=== PATIENT | female | born 1950 | race Caucasian/White ===

== ENCOUNTER 2019-07-23 21:43 | Outpatient (CLI) | payer MEDICARE, MEDICAID | END 2019-07-23 21:44 | disposition critical access hospital (66) | LOC: EMS 21:43 | PROVIDERS: ATTEND Surgery | DX: R53.1 Weakness (principal); R46.4 Slowness and poor responsiveness; R50.9 Fever, unspecified | CPT/HCPCS: A0425; A0429 ==

== ENCOUNTER 2019-07-23 22:03 | Emergency (ER) | payer MEDICARE, MEDICAID ==
[2019-07-23] MEDS ORDERED: ACETAMINOPHEN 325 MG TABLET PO STA (23:31)
--- NOTE | 2019-07-23 23:32 | ED Physician Documentation ---
History of Present Illness - Stated complaint Stated Complaint: FEVER,CHILLS,WEAKNESS - Chief complaint Chief Complaint: Fever - History obtained from History obtained from: Patient, Family (daughter (in ED at bedside)) - History of Present Illness Timing: Today Pain level now: 0 Improved by: no apparent ameliorating factors Worsened by: no apparent exacerbating factors - Additonal information Additional information: patient and daughter both contribute to HPI/ROS. "cold, shaking", daughter says "hasn't been coherent all the time" today. Was at PMD's office earlier today to review recent blood tests (they have results with them; appears to be a rheumotology-oriented w/u with some positive and some negative results; they say this had to do with some foot pain she had recently been experiencing). Daughter also says patient fell while waiting for the bus earlier today but did not hid head nor lose consciousness. Patient is febrile in triage. Review of Systems Constitutional: reports: Fever, Chills, Sweats Cardiac: reports: Reviewed and negative Respiratory: reports: Reviewed and negative GI: reports: Reviewed and negative : denies: Dysuria, Frequency Skin: reports: Reviewed and negative Musculoskeletal: reports: Reviewed and negative Neurologic: reports: Confused. denies: Generalized weakness, Focal weakness, Numbness PD PAST MEDICAL HISTORY - Past Medical History Past Medical History: Yes Cardiovascular: High cholesterol - Past Surgical History Ortho: Knee replacement - Allergies Allergies/Adverse Reactions: Allergies Allergy/AdvReac Type Severity Reaction Status Date / Time Sulfa (Sulfonamide Allergy Unknown Verified 07/24/19 14:07 Antibiotics) - Social History Does the pt smoke?: No Smoking Status: Never smoker Does the pt drink ETOH?: No Does the pt have substance abuse?: No - POLST Patient has POLST: No PD ED PE NORMAL - Vitals Vital signs reviewed: Yes - General General: No acute distress, Well developed/nourished, Other (awake, alert, oriented x 3 but slow to answer some questions and seems unsure at times) - HEENT HEENT: Atraumatic, PERRL, EOMI, Moist mucous membranes - Neck Neck: Supple, no meningeal sign, No bony TTP - Cardiac Cardiac: RRR, No murmur - Respiratory Respiratory: No respiratory distress, Clear bilaterally - Abdomen Abdomen: Soft, Non tender - Derm Derm: Normal color, Warm and dry - Extremities Extremities: No edema - Neuro Neuro: Alert and oriented X 3, service superintendent 2-12 intact, No motor deficit, No sensory deficit, Normal speech Eye Opening: Spontaneous Motor: Obeys Commands Verbal: Confused GCS Score: 14 Results - Vitals Vitals: Vital Signs - 24 hr 07/23/19 07/23/19 07/24/19 22:18 23:33 00:39 Temperature 38.4 C H 39.0 C H Heart Rate 82 83 91 Respiratory 18 14 14 Rate Blood Pressure 104/58 L 104/93 H 104/89 H O2 Saturation 99 95 97 07/24/19 07/24/19 02:10 04:04 Temperature 37.9 C H 36.9 C Heart Rate 80 81 Respiratory 16 17 Rate Blood Pressure 104/57 L 124/77 O2 Saturation 97 98 Oxygen O2 Source Room air - Labs Labs: Microbiology 07/24/19 01:20 Blood Culture - Preliminary Blood 07/24/19 01:25 Blood Culture - Preliminary Blood Laboratory Tests 07/23/19 07/23/19 07/23/19 23:30 23:55 23:55 WBC 20.4 H RBC 3.96 L Hgb 9.7 L Hct 30.9 L MCV 78.0 L MCH 24.5 L MCHC 31.4 L RDW 16.2 H Plt Count 458 H MPV 9.2 Neut # (Auto) 16.5 H Lymph # (Auto) 2.4 [place] # (Auto) 1.2 H Eos # (Auto) 0.0 Baso # (Auto) 0.1 Absolute Nucleated RBC 0.00 Nucleated RBC % 0.0 Manual Slide Review Indicated Platelet Estimate INCREASED (>450,000) Platelet Morphology NORMAL APPEARANCE RBC Morph Micro Appear NORMAL APPEARANCE Sodium 132 L Potassium 4.2 Chloride 101 Carbon Dioxide 18 L Anion Gap 13.0 BUN 25 H Creatinine 1.6 H Estimated GFR (MDRD) 32 L Glucose 157 H Lactic Acid Calcium 8.9 Total Bilirubin 0.4 AST 20 ALT 10 Alkaline Phosphatase 56 Total Protein 8.2 Albumin 3.7 Globulin 4.5 H Albumin/Globulin Ratio 0.8 L Lipase 50 Urine Color Urine Clarity Urine pH Ur Specific [place] Urine Protein Urine Glucose (UA) Urine Ketones Urine Occult Blood Urine Nitrite Urine Bilirubin Urine Urobilinogen Ur Leukocyte Esterase Ur Microscopic Review Urine Culture Comments Influenza A (Rapid) Negative Influenza B (Rapid) Negative 07/24/19 07/24/19 00:34 01:20 WBC RBC Hgb Hct MCV MCH MCHC RDW Plt Count MPV Neut # (Auto) Lymph # (Auto) [place] # (Auto) Eos # (Auto) Baso # (Auto) Absolute Nucleated RBC Nucleated RBC % Manual Slide Review Platelet Estimate Platelet Morphology RBC Morph Micro Appear Sodium Potassium Chloride Carbon Dioxide Anion Gap BUN Creatinine Estimated GFR (MDRD) Glucose Lactic Acid 1.0 Calcium Total Bilirubin AST ALT Alkaline Phosphatase Total Protein Albumin Globulin Albumin/Globulin Ratio Lipase Urine Color YELLOW Urine Clarity CLEAR Urine pH 6.0 Ur Specific [place] 1.015 Urine Protein NEGATIVE Urine Glucose (UA) NEGATIVE Urine Ketones NEGATIVE Urine Occult Blood NEGATIVE Urine Nitrite NEGATIVE Urine Bilirubin NEGATIVE Urine Urobilinogen 0.2 (NORMAL) Ur Leukocyte Esterase NEGATIVE Ur Microscopic Review NOT INDICATED Urine Culture Comments NOT INDICATED Influenza A (Rapid) Influenza B (Rapid) - Rads (name of study) chest xray Radiology: Prelim report reviewed, See rad report PD MEDICAL DECISION MAKING - ED course Complexity details: reviewed old records, reviewed results, re-evaluated patient, considered differential, d/w patient, d/w family ED course: given tylenol but fever then increased. W/U included cxr, blood tests, UA, and flu swab. No contributory findings on any of these tests except notable leukocytosis. She was given ibuprofen and this significantly reduced her fever and this correlated with return to baseline mental status. On reevaluation, she is AAOx3, interacts appropriately and exhibits no confusion. No source for fever found. Reexamination of abdomen reveals it continues to be nontender Departure - Departure Disposition: 01 Home, Self Care Clinical Impression: Fever Qualifiers: Fever type: unspecified Qualified Code(s): R50.9 - Fever, unspecified Condition: Good Instructions: ED Fever Unconf Cause Discharge Date/Time: 07/24/19 04:05
[2019-07-24 00:08] LABS: BASOPHILS # (AUTO) 0.1 10^3/uL (0.0-0.1); BASOPHILS % (AUTO) 0.4 %; EOSINOPHILS % (AUTO) 0.1 %; HGB - HEMOGLOBIN 9.7 g/dL (12.0-16.0); LYMPHOCYTES # (AUTO) 2.4 10^3/uL (1.5-3.5); LYMPHOCYTES % (AUTO) 11.5 %; MEAN CORPUSCULAR HEMOGLOBIN 24.5 pg (27.0-31.0); MEAN CORPUSCULAR HGB CONC 31.4 g/dL (32.0-36.0); MEAN PLATELET VOLUME 9.2 fL (7.9-10.8); MONOCYTES # (AUTO) 1.2 10^3/uL (0.0-1.0); MONOCYTES % (AUTO) 6.1 %; NEUTROPHILS # (AUTO) 16.5 10^3/uL (1.5-6.6); PLT - PLATELET COUNT 458 10^3/uL (130-450); RED BLOOD COUNT 3.96 10^6/uL (4.20-5.40); RED CELL DISTRIBUTION WIDTH 16.2 % (12.0-15.0); WHITE BLOOD COUNT 20.4 x10^3/uL (4.8-10.8)
[2019-07-24 00:20] LABS: ALBUMIN 3.7 g/dL (3.2-5.5); ALBUMIN/GLOBULIN RATIO 0.8 (1.0-2.2); BILIRUBIN,TOTAL 0.4 mg/dL (0.2-1.0); CALCIUM 8.9 mg/dL (8.5-10.3); CREATININE 1.6 mg/dL (0.4-1.0); TOTAL PROTEIN 8.2 g/dL (6.7-8.2)
[2019-07-24 00:31] LABS: PLATELET MORPHOLOGY NORMAL APPEARANCE (NORMAL); RBC MORPHOLOGY (MULTIPLE) NORMAL APPEARANCE (NORMAL)
[2019-07-24 00:32] LABS: PLATELET ESTIMATE, MANUAL INCREASED (>450,000) (NORMAL)
--- NOTE | 2019-07-24 00:37 | XRAY Report ---
Reason: fever, AMS Procedure Date: 07/24/2019 Accession Number: [id number] / [id number] Procedure: XR - Chest 2 View X-Ray CPT Code: 99844 Final Report FULL RESULT: EXAM: CHEST RADIOGRAPHY EXAM DATE: 07/24/2019 12:25 AM. CLINICAL HISTORY: Fever, AMS. COMPARISON: None. TECHNIQUE: 2 views. FINDINGS: Lungs/Pleura: No dense consolidation. No large effusion or pneumothorax. No pulmonary edema. Mediastinum: Heart and mediastinal contours are unremarkable. Other: None. IMPRESSION: No acute radiographic pulmonary abnormalities. RADIA
[2019-07-24 00:46] LABS: BILIRUBIN,URINE NEGATIVE (NEGATIVE); CLARITY,URINE CLEAR (CLEAR); GLUCOSE, URINE (UA) NEGATIVE (NEGATIVE); KETONES,URINE (UA) NEGATIVE (NEGATIVE); LEUKOCYTE ESTERASE, URINE NEGATIVE (NEGATIVE); NITRITE,URINE NEGATIVE (NEGATIVE); OCCULT BLOOD,URINE NEGATIVE (NEGATIVE); PROTEIN,URINE NEGATIVE (NEGATIVE); UROBILINOGEN,URINE 0.2 (NORMAL) E.U./dL (NORMAL)
[2019-07-24] MEDS ORDERED: IBUPROFEN 600 MG TABLET PO STA (01:09)
[2019-07-24 04:05] VITALS: BP 124/77
== END 2019-07-24 04:05 | disposition home or self-care (01) ==
LOC: EDUNIT# → ED 22:03
DX: R50.9 Fever, unspecified (principal)
CPT/HCPCS: 36415; 71046; 80053; 81001; 81003; 81599; 83605; 83690; 85025; 87040; 87086; 87275; 87276; 99284

== ENCOUNTER 2019-07-24 13:45 | Inpatient (IN) | payer MEDICARE, MEDICAID ==
[2019-07-24] MEDS ORDERED: CEFEPIME 2 GM in SODIUM CHLORIDE 0.9% MINIBAG 100 ML IV STA (14:27)
[2019-07-24] MEDS ORDERED: metroNIDAZOLE 500 MG/100 ML 500 MG/100 ML BAG IV ONE (14:32)
--- NOTE | 2019-07-24 14:34 | ED Physician Documentation ---
History of Present Illness - Stated complaint Stated Complaint: AB LAB - Chief complaint Chief Complaint: Fever - History obtained from History obtained from: Patient, Family - History of Present Illness Timing: Last night (This is a very pleasant relatively healthy 69-year-old woman who became acutely ill yesterday with confusion and fevers. She was seen here noted to have a white blood cell count of 20, clear chest x-ray and urine. Because she was much better after IV fluids and sent home. She is much more coherent today and feeling better. Her only specific complaint is some mild right-sided abdominal pain. She also vomited once this morning but is not currently nauseous. She was called back to the emergency department because she has 2 out of 2 blood cultures positive for gram-negative bacilli.) Review of Systems Ten Systems: 10 systems reviewed and negative Constitutional: reports: Fever, Chills Cardiac: denies: Chest pain / pressure, Palpitations Respiratory: denies: Dyspnea, Cough GI: reports: Abdominal Pain, Vomiting. denies: Nausea, Diarrhea PD PAST MEDICAL HISTORY - Past Medical History Cardiovascular: High cholesterol - Past Surgical History Ortho: Knee replacement - Allergies Allergies/Adverse Reactions: Allergies Allergy/AdvReac Type Severity Reaction Status Date / Time Sulfa (Sulfonamide Allergy Unknown Verified 07/24/19 14:07 Antibiotics) - Social History Does the pt smoke?: No Smoking Status: Never smoker Does the pt drink ETOH?: No Does the pt have substance abuse?: No - Family History Family history: reports: Non contributory - POLST Patient has POLST: No PD ED PE NORMAL - Vitals Vital signs reviewed: Yes - General General: Alert and oriented X 3, No acute distress - HEENT HEENT: PERRL, EOMI - Neck Neck: Supple, no meningeal sign, No bony TTP - Cardiac Cardiac: RRR, No murmur - Respiratory Respiratory: No respiratory distress, Clear bilaterally - Abdomen Abdomen: Normal bowel sounds, Other (Minimal right upper quadrant tenderness without surgical signs) - Back Back: No CVA TTP, No spinal TTP - Derm Derm: Normal color, Warm and dry - Extremities Extremities: No edema, No calf tenderness / cord - Neuro Neuro: Alert and oriented X 3, Normal speech Results - Vitals Vitals: Vital Signs - 24 hr 07/24/19 07/24/19 07/24/19 14:01 14:06 14:42 Temperature 37.5 C 37.5 C Heart Rate 89 82 88 Respiratory 18 19 Rate Blood Pressure 108/49 L 113/80 110/55 L O2 Saturation 97 97 98 Oxygen O2 Source Room air - Labs Labs: Laboratory Tests 07/24/19 07/24/19 07/24/19 14:45 14:47 15:16 WBC 30.2 H RBC 3.65 L Hgb 9.2 L Hct 28.9 L MCV 79.2 L MCH 25.2 L MCHC 31.8 L RDW 16.2 H Plt Count 446 MPV 9.7 Neut # (Auto) Not Reportable Lymph # (Auto) Not Reportable [place] # (Auto) Not Reportable Eos # (Auto) Not Reportable Baso # (Auto) Not Reportable Absolute Nucleated RBC Not Reportable Total Counted 100 Band Neuts % (Manual) 20 H Abnorm Lymph % (Manual) 0 Nucleated RBC % Not Reportable Neutrophils # (Manual) 27.8 H Lymphocytes # (Manual) 0.9 L Monocytes # (Manual) 1.5 H Eosinophils # (Manual) 0.0 Basophils # (Manual) 0.0 Differential Comment MANUAL DIFFERENTIAL Manual Slide Review Indicated WBC Morphology NORMAL APPEARANCE Platelet Estimate NORMAL (130-450,000) Platelet Morphology NORMAL APPEARANCE RBC Morph Micro Appear 1+ MICROCYTOSIS Sodium 134 L Potassium 3.8 Chloride 101 Carbon Dioxide 20 L Anion Gap 13.0 BUN 28 H Creatinine 1.6 H Estimated GFR (MDRD) 32 L Glucose 198 H Lactic Acid 2.2 Calcium 8.7 Total Bilirubin 1.0 AST 16 ALT 10 Alkaline Phosphatase 49 Total Protein 7.5 Albumin 3.4 Globulin 4.1 Albumin/Globulin Ratio 0.8 L - Rads (name of study) CT A/P Radiology: EMP read contemporaneously (Inflamed appearing transverse colon consistent with either diverticulitis or neoplasm) PD MEDICAL DECISION MAKING - ED course ED course: 69-year-old woman returns as requested for positive blood cultures, 2 out of 2 for gram-negative bacilli. The only complaints that might be a focus was her abdominal pain and a CT did show the source is either being diverticulosis/-itis near the hepatic flexure versus a necrotic neoplasm. She is never had a colonoscopy. She was administered cefepime and Flagyl after blood cultures were repeated. Case discussed by phone with the on-call surgeon, Dr. Doyle who will consult and Dr. Rick for admission at 5:05 PM. Departure - Departure Disposition: 66 [facility] DC/Xfer Clinical Impression: Colonic mass, Gram negative sepsis Condition: Serious
[2019-07-24 15:06] LABS: BASOPHILS % (AUTO) 0.5 %; EOSINOPHILS % (AUTO) 0.3 %; HGB - HEMOGLOBIN 9.2 g/dL (12.0-16.0); LYMPHOCYTES % (AUTO) 3.1 %; MEAN CORPUSCULAR HEMOGLOBIN 25.2 pg (27.0-31.0); MEAN CORPUSCULAR HGB CONC 31.8 g/dL (32.0-36.0); MEAN CORPUSCULAR VOLUME 79.2 fL (81.0-99.0); MEAN PLATELET VOLUME 9.7 fL (7.9-10.8); MONOCYTES % (AUTO) 4.7 %; NEUTROPHILS % (AUTO) 89.7 %; PLT - PLATELET COUNT 446 10^3/uL (130-450); RED BLOOD COUNT 3.65 10^6/uL (4.20-5.40); RED CELL DISTRIBUTION WIDTH 16.2 % (12.0-15.0); WHITE BLOOD COUNT 30.2 x10^3/uL (4.8-10.8)
[2019-07-24 15:11] LABS: ABNORMAL LYMPHS % (MANUAL) 0 %
[2019-07-24 15:38] LABS: BAND NEUTROPHILS % (MANUAL) 20 %; LYMPHOCYTES # (MANUAL) 0.9 10^3/uL (1.5-3.5); LYMPHOCYTES % (MANUAL) 3 %; MONOCYTES # (MANUAL) 1.5 10^3/uL (0.0-1.0)
[2019-07-24 15:39] LABS: DIFFERENTIAL COMMENT MANUAL DIFFERENTIAL; PLATELET ESTIMATE, MANUAL NORMAL (130-450,000) (NORMAL); PLATELET MORPHOLOGY NORMAL APPEARANCE (NORMAL)
[2019-07-24 15:46] LABS: ALBUMIN 3.4 g/dL (3.2-5.5); ALBUMIN/GLOBULIN RATIO 0.8 (1.0-2.2); CALCIUM 8.7 mg/dL (8.5-10.3); CREATININE 1.6 mg/dL (0.4-1.0); TOTAL PROTEIN 7.5 g/dL (6.7-8.2)
[2019-07-24] MEDS ORDERED: IOVERSOL 320 100 ML VIAL IVP ONE ×2 (15:59→16:36)
--- NOTE | 2019-07-24 16:53 | CT Report ---
Reason: RUQ pain, sepsis Procedure Date: 07/24/2019 Accession Number: [id number] / [id number] Procedure: CT - Abdomen/Pelvis W CPT Code: Final Report FULL RESULT: EXAM: CT ABDOMEN AND PELVIS EXAM DATE: 07/24/2019 04:32 PM. CLINICAL HISTORY: RUQ pain. Sepsis. COMPARISONS: None. TECHNIQUE: Routine helical CT imaging was performed through the abdomen and pelvis. IV contrast: 80 cc of OPTIRAY 320. Enteric contrast: No. Reconstructions: Coronal and sagittal. In accordance with CT protocol optimization, one or more of the following dose reduction techniques were utilized for this exam: automated exposure control, adjustment of mA and/or KV based on patient size, or use of iterative reconstructive technique. FINDINGS: Lung Bases: Small hiatal hernia. Liver: Normal. No masses. Gallbladder/Bile Ducts: Unremarkable. Spleen: Normal. Pancreas: Normal. Adrenal Glands: Normal. Kidneys: Normal. No masses or hydronephrosis. Peritoneal Cavity/Bowel: Diverticulosis. There is irregular colonic wall thickening at the hepatic flexure with dilatation and exophytic outpouching with air bubbles, with adjacent fat stranding. No free fluid, free air or adenopathy. The appendix is well visualized and normal. Pelvic Organs: Normal. The bladder and visualized pelvic organs are within normal limits. Vasculature: No aneurysms or other significant abnormality. Bones: No significant abnormality. Other: None. IMPRESSION: Abnormal hepatic flexure of the colon concerning for either necrotic neoplasm or giant diverticulum with diverticulitis. RADIA
[2019-07-24] MEDS ORDERED: ACETAMINOPHEN 325 MG TABLET PO PRN (17:26)
[2019-07-24] MEDS ORDERED: ONDANSETRON 4 MG/2 ML VIAL IVP PRN (17:26)
--- NOTE | 2019-07-24 18:20 | CONSULTATION NOTE ---
Referring Provider Name of Referring Provider:: Dr. Branham ED Consult Date: 07/24/19 Chief Complaint - Chief Complaint Chief Complaint: called back to ED for positive blood cultures History of Present Illness - Admitted From Admitted From:: ED - History Obtained From History obtained from: patient, daughter, and chart Exam Limitations: pt's memory is somewhat limited - History of Present Illness HPI Comment/Other: 69yo F brought to ED last night by daughter for concerning neurological findings of confusion and poor gross motor skills. She was given ibuprofen for a temperature and improved during her stay to essentially normal. No abnormal findings in labs so pt discharged. Called back today for blood cultures growing gram negative bacilli. She now has a leukocytosis of 30 with 20% bands. She feels much better, however. CT concerning for a large inflammatory mass in her hepatic flexure, concerning for necrotic cancer versus giant diverticulum. No mets or enlarged lymph nodes apparent. No perforation but significant surrounding inflammation. Her proximal colon is full of stool and her distal colon collapsed; she has extensive diverticulosis throughout her colon. On review, she started to feel off a month or so ago, noticing she was more fatigued and would get dizzy standing up. She has had a few episodes of abnormal nausea and vomiting but this has been intermittent. In general, she feels she is eating like normal and moving her bowels like normal, which is once every other day or so and with formed consistency. No blood, no thinner stools. She has no abdominal pain or distension. She does not see a PCP and has always refused colonoscopy because her ex during his. She has also refused stool tests for screening because it seems gross; she states she knows she has the right to dictate her healthcare. She still adamantly refuses endoscopy. No family history of colon cancers but several other kinds of cancer are present so she hopes she does not also have cancer. No anesthesia or bleeding issues in pt or family as far as she knows. She generally does not get SOB walking up stairs unless there are 'too many' but she is unable to quantify this. Her daughter notes that she only sees her fatigue quickly when she feels ill. 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 denies: Fever, Chills - Ears, Nose & Throat Ears, Nose & Throat: reports: Vertigo - Cardiovascular Cariovascular: reports: Lightheadedness, Exertional dyspnea (intermittently) - Gastrointestinal Gastrointestinal: reports: Nausea, Vomiting. denies: Abdominal pain, Abdominal distention, Constipation, Diarrhea, Change in bowel habits, Rectal bleeding, Black stools, Bloody stools, Coffee grounds emesis, Bloating, Poor appetite - Genitourinary Genitourinary: reports: Other (occasional UTIs) - Hematologic/Lymphatic Hematologic/Lymphatic: denies: Bruising, Blood clots, Bleeding tendencies - All Other Systems All Other Systems: reports: Reviewed and negative Exam - Vital Signs Reviewed Vital Signs: Yes Vital Signs: Vital Signs x48h Temp Pulse Resp BP Pulse Ox 07/24/19 17:00 84 14 108/70 97 07/24/19 14:42 37.5 C 88 19 110/55 L 98 07/24/19 14:06 82 113/80 97 07/24/19 14:01 37.5 C 89 18 108/49 L 97 - Physical Exam Comments/Other: AAO, NAD, occasional memory issues female of healthy weight EOMI, MMM, no scleral icterus unlabored RA soft, nt/nd, no palpable organomegaly MAEW visible skin dry and intact Conclusion and Plan - Lab Results Laboratory Results 07/24/19 15:16: Sodium 134 L, Potassium 3.8, Chloride 101, Carbon Dioxide 20 L, Anion Gap 13.0, BUN 28 H, Creatinine 1.6 H, Estimated GFR (MDRD) 32 L, Glucose 198 H, Calcium 8.7, Total Bilirubin 1.0, AST 16, ALT 10, Alkaline Phosphatase 49, Total Protein 7.5, Albumin 3.4, Globulin 4.1, Albumin/Globulin Ratio 0.8 L 07/24/19 14:47: Lactic Acid 2.2 07/24/19 14:45: WBC 30.2 H, RBC 3.65 L, Hgb 9.2 L, Hct 28.9 L, MCV 79.2 L, MCH 25.2 L, MCHC 31.8 L, RDW 16.2 H, Plt Count 446, MPV 9.7, Neut # (Auto) Not Reportable, Lymph # (Auto) Not Reportable, [place] # (Auto) Not Reportable, Eos # (Auto) Not Reportable, Baso # (Auto) Not Reportable, Absolute Nucleated RBC Not Reportable, Total Counted 100, Band Neuts % (Manual) 20 H, Abnorm Lymph % (Manual) 0, Nucleated RBC % Not Reportable, Neutrophils # (Manual) 27.8 H, Lymphocytes # (Manual) 0.9 L, Monocytes # (Manual) 1.5 H, Eosinophils # (Manual) 0.0, Basophils # (Manual) 0.0, Differential Comment MANUAL DIFFERENTIAL, Manual Slide Review Indicated, WBC Morphology NORMAL APPEARANCE, Platelet Estimate NORMAL (130-450,000), Platelet Morphology NORMAL APPEARANCE, RBC Morph Micro Appear 1+ MICROCYTOSIS - Diagnostic Imaging Results Diagnostic Imaging Results: positive: Final report reviewed, Read contemporaneously - Diagnosis Diagnosis: 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 - Plan Plan: - mass concerning for malignancy versus giant diverticulum --> more likely cancer, happily no obvious mets or enlarged LNs --> pt refuses endoscopy for evaluation and biopsy --> CEA sent - cont' IV abx, has significant surrounding inflammation and while she has bacteremia from this she is stable and comfortable so will let inflammation improve while undergoing more workup - discussed that pt would most likely need a partial colectomy this admission and she is amenable to whatever needs to be done other than endoscopy --> explained if she worsened this may have to be emergent but given her current clinical picture we have time to continue workup and optimize patient - ice chips and sips for now, evidence of obstruction from process on imaging although less clinically; also want bowel rest to let inflammation calm and to h elp empty colon since prep now is high risk - ZANDRA: not sure of true baseline; her left kidney appears to be atrophic and have an associated mass --> IVFs, monitor - SCDs, chemoprophylaxis as long as Hg remains stable and we will hold before surgery
[2019-07-24 18:29] LABS: INR 1.5 (0.8-1.2); PT - PROTHROMBIN TIME 16.3 secs (9.9-12.6)
--- NOTE | 2019-07-24 18:51 | HISTORY & PHYSICAL EXAMINATION ---
DATE OF SERVICE: 07/24/2019 Physician: Tamia Rick MD PRIMARY CARE PHYSICIAN: None HISTORY OF PRESENT ILLNESS: This is a 69-year-old white female with a history of hyperlipidemia, and prior history of HTN and Diabetes but she no longer needs medications to treat those, according to her, and otherwise has a negative PMH. Yesterday, she developed confusion and chills and came to the emergency room. She was found to have a fever of 101 F and an elevated white blood count of 20, but had a normal urinalysis and chest x-ray and was sent home with orders for symptomatic treatment of the fever as the etiology was unclear. Blood cultures had been taken. Today, she was called to come back to the hospital emergency room because 2 of 2 blood culture bottles had turned positive for gram-negative bacilli. Patient received IV fluids in the ER today and her confusion had improved since yesterday, since she reports she took Tylenol alternating with Motrin for her fever, and she is feeling better today. Her only complaint is that of right-sided abdominal pain which started today and she did have 1 episode of vomiting earlier today. Currently, she is not nauseated. The exam in the ER today did reveal mild right upper quadrant tenderness and a CT of the abdomen has been done. This shows a transverse colon mass versus diverticulitis. PAST MEDICAL HISTORY: Hyperlipidemia on Simvastatin, Depression on treatment, previous Hx of DM type II and HTN, no longer on treatment. MEDICATIONS: Simvastatin, antidepressant. ALLERGIES: SULFA. FAMILY HISTORY: There is cardiac and diabetic and cancer history in the family. SOCIAL HISTORY: Patient is a nonsmoker now who quit 35 years ago, drinks no alcohol but was abusing alcohol in the remote past, no illicit drug use history. She is a homemaker. She lives with her daughter and with her ex- (they have separate areas in the dwelling, she said). She moved to [facility] from [place] in October 2018, however, she used to live in [facility] in the past. Since moving here 8 months ago, she does not have a local PCP yet. REVIEW OF SYSTEMS: She denies melena or hematochezia, denies previous abdominal pain. There has been no recent diarrhea. She denies URI symptoms or recent travel out of the country. She has never had a colonoscopy. She denies weakness, syncope or shortness of breath. A comprehensive review of systems was performed and the pertinent positives are listed, the rest are negative. PHYSICAL EXAMINATION GENERAL: Elderly white female. She appears pale. She is not in acute distress. She has temporal wasting. VITAL SIGNS: Blood pressure 110/55, heart rate 80 in sinus rhythm, afebrile today, room air saturation 97%. HEENT: Unremarkable except for pallor. NECK: Shows no JVD in a vertical position. CHEST: Clear lung sounds. HEART: Normal heart sounds without murmur. ABDOMEN: Soft, mildly tender in the right upper quadrant. No guarding or rebound. No organomegaly. Normal bowel sounds. EXTREMITIES: No clubbing, cyanosis or edema. NEUROLOGIC: Grossly intact. LABORATORY DATA: Sodium 134, potassium 3.8, BUN 28, creatinine 1.6. Her creatinine was 1.6 on yesterday's ER labs as well. There are no older labs to compare. Lactic acid today 2.2. Normal liver function tests and no lipase was done. White blood count 30.2 with 20% bands. Hemoglobin 9.2 with an MCV of 79, RDW of 16.2 and platelet count of 446. No INR was done. Chest x-ray from yesterday showed no active pulmonary disease. IMAGING: Abdomen and pelvis CT from today shows abnormal hepatic flexure of the colon concerning for either necrotic neoplasm or giant diverticulum with diverticulitis. IMPRESSION/DIAGNOSES 1. Sepsis by virtue of very elevated white count with left shift, fever yesterday and signs of infection. 2. Gram-negative bacteremia. 3. Colonic mass, possibly cancer. 4. Diverticulitis. 5. Acute kidney injury. 6. Microcytic anemia. 7. Hyponatremia. PLAN: Admit patient to a Med/Surg bed. Diet will just be clear liquids for bowel rest. General surgery consult is requested; the ER doctor already spoke to the on-call surgeon. Begin treatment for the bacteremia with IV antibiotics and will use iv Cefepime and iv Flagyl. Reculture blood if she spikes a fever. Begin IV fluids, follow electrolytes and recheck her lactic acid level. Obtain B12, folate levels and iron stores and type and screen as she may require a blood transfusion if hemoglobin drops below 7. Follow CBC daily. If surgery is required, she will need an EKG for preop evaluation. DEEP VENOUS THROMBOSIS PROPHYLAXIS: SCDs. CODE STATUS: FULL CODE, confirmed with discussion with patient. ATTESTATION: Patient is expected to be discharged or transferred to another facility within 96 hours: Yes. TD: 07/24/2019 17:52 MTDNancy
[2019-07-24] MEDS: DEXTROSE 5%-0.9% NACL 1,000 ML IV SCH (19:19)
[2019-07-24] MEDS: SODIUM CHLORIDE FLUSH 0.9% 10 ML SYRINGE IVP SCH (21:42)
[2019-07-24] MEDS: FAMOTIDINE 20 MG/2 ML VIAL IVP SCH (21:42)
[2019-07-24] MEDS: CEFEPIME 2 GM in SODIUM CHLORIDE 0.9% MINIBAG 100 ML IV SCH (21:43)
[2019-07-24] MEDS: metroNIDAZOLE 500 MG/100 ML 500 MG/100 ML BAG IV SCH (22:17)
[2019-07-25 05:23] LABS: BASOPHILS % (AUTO) 0.5 %; EOSINOPHILS % (AUTO) 0.2 %; HGB - HEMOGLOBIN 7.8 g/dL (12.0-16.0); LYMPHOCYTES % (AUTO) 6.1 %; MEAN CORPUSCULAR HEMOGLOBIN 25.6 pg (27.0-31.0); MEAN CORPUSCULAR HGB CONC 32.4 g/dL (32.0-36.0); MEAN PLATELET VOLUME 9.3 fL (7.9-10.8); MONOCYTES % (AUTO) 4.3 %; NEUTROPHILS % (AUTO) 87.4 %; PLT - PLATELET COUNT 354 10^3/uL (130-450); RED BLOOD COUNT 3.05 10^6/uL (4.20-5.40); RED CELL DISTRIBUTION WIDTH 16.3 % (12.0-15.0); WHITE BLOOD COUNT 22.6 x10^3/uL (4.8-10.8)
[2019-07-25 05:27] LABS: ABNORMAL LYMPHS % (MANUAL) 0 %
[2019-07-25 05:40] LABS: % IRON SATURATION 3 % (20-50); ALBUMIN 2.7 g/dL (3.2-5.5); ALBUMIN/GLOBULIN RATIO 0.7 (1.0-2.2); ALKALINE PHOSPHATASE 42 IU/L (42-121); ALT ALANINE AMINOTRANSFERASE < 10 IU/L (10-60); AST ASPARTATE AMINOTRANSFERASE 15 IU/L (10-42); BILIRUBIN,TOTAL 0.6 mg/dL (0.2-1.0); BUN - BLOOD UREA NITROGEN 28 mg/dL (6-20); CALCIUM 8.2 mg/dL (8.5-10.3); CARBON DIOXIDE - CO2 20 mmol/L (21-32); CHLORIDE 106 mmol/L (101-111); CREATININE 1.6 mg/dL (0.4-1.0); GFR - MDRD 32 (>89); GLUCOSE 144 mg/dL (70-100); IRON 8 ug/dL (28-170); MAGNESIUM 1.6 mg/dL (1.7-2.8); PHOSPHORUS 3.5 mg/dL (2.5-4.6); SODIUM 136 mmol/L (135-145); TOTAL IRON BINDING CAPACITY 235 ug/dL (250-450); TOTAL PROTEIN 6.7 g/dL (6.7-8.2); TRANSFERRIN 168 mg/dL (192-382)
[2019-07-25 05:55] LABS: BAND NEUTROPHILS % (MANUAL) 3 %; DIFFERENTIAL COMMENT MANUAL DIFFERENTIAL; LYMPHOCYTES # (MANUAL) 2.7 10^3/uL (1.5-3.5); LYMPHOCYTES % (MANUAL) 12 %; MONOCYTES # (MANUAL) 0.7 10^3/uL (0.0-1.0); PLATELET ESTIMATE, MANUAL NORMAL (130-450,000) (NORMAL); PLATELET MORPHOLOGY NORMAL APPEARANCE (NORMAL); RBC MORPHOLOGY (MULTIPLE) NORMAL APPEARANCE (NORMAL)
[2019-07-25 05:57] LABS: FOLATE 11.46 ng/mL (5.90 - >24.8)
[2019-07-25] MEDS: DEXTROSE 5%-0.9% NACL 1,000 ML IV SCH ×2 (06:58→19:37)
[2019-07-25] MEDS: metroNIDAZOLE 500 MG/100 ML 500 MG/100 ML BAG IV SCH ×3 (07:00→21:56)
--- NOTE | 2019-07-25 08:23 | PROVIDER PROGRESS NOTE ---
Assessment/Plan - Problem List (1) Gram negative sepsis Assessment/Plan: WBC 30>> 22.6 today. She spiked a fever to >38C this morning again. The Lactic Acid was elevated at 2.5 and 2.7 last night and has normalized this morning. IV antibiotics were started only last evening (since she didn't immediately come to the hospital yesterday, after she got the phone call to return due to (+) blood cultures). Re-order blood cx today with fever spike. Await gram neg bacterial identification and sensitivities. At least 2 weeks of antibx are planned. (2) Anaerobic bacteremia Assessment/Plan: The blood cx from 07/23/19 is also growing a gram (+) anaerobe, the lab thinks it is Clostridium species. This is likely the cause of the small gas seen in the region on CT scan. The iv Flagyl has good anaerobic coverage for Clostridium species. (3) Colonic mass Assessment/Plan: Appreciate Dr Doyle's, Gen Surgeon thorough note in her consult: Diagnosis: Inflammatory mass of hepatic flexure with blood stream infection Plan: - mass concerning for malignancy versus giant diverticulum --> more likely cancer, happily no obvious mets or enlarged lymph nodes --> pt refuses endoscopy for evaluation and biopsy --> CEA sent - cont' IV abx, has significant surrounding inflammation and while she has ba cteremia from this she is stable and comfortable so will let inflammation improve while undergoing more workup - discussed that pt would most likely need a partial colectomy this admission and she is amenable to whatever needs to be done other than endoscopy --> explained if she worsened this may have to be emergent but given her current clinical picture we have time to continue workup and optimize patient - ice chips and sips for now, evidence of obstruction from process on imaging although less clinically; also want bowel rest to let inflammation calm and to help empty colon since prep now is high risk - ZANRDA: not sure of true baseline; her left kidney appears to be atrophic and have an associated mass --> IVFs, monitor - SCDs, chemoprophylaxis as long as Hgb remains stable and we will hold before surgery. The CEA result has returned and is elevated at 9.2 (normal is < 5), suggesting colon cancer is in fact present. Will await surgeon's instructions regarding timing of surgery. Will obtain a new CXR closer to surgery, and get an EKG now for pre-op risk assessment. She is an ex-smoker, previous type II daibetic, previous HTN Hx, with heart disease in the family history. The patient will be optimized for potential surgery, as per the notes in the surgeon's consult. (4) Diverticulitis Assessment/Plan: Will continue to treat as if this is acute diverticulitis: with iv Cefepime and iv Flagyl. Bowel rest with clear liquid diet and gentle iv hydration. She denies excessive pain, but narcotis are ordered prn if needed. (5) ZANDRA (acute kidney injury) Assessment/Plan: She has had 3 labs in the past 3 days all with abnormal creat results, therefore she may actually have Chronic Kidney Disease. In addition, there is an abnormal L kidney on CT imaging of the abd/pelvis. Continue gentle iv hydration. Follow BMP daily. (6) Renal mass, left Assessment/Plan: The Gen Surgeon's note regarding her interpretation of the abdominal CT said: L kidney atrophic with associated mass. Will obtain renal ultrasound. If she has an atrophic kidney, she may have had this all her life, and only one functioning kidney, which, if stressed may be the cause of ZANDRA. (7) Microcytic anemia Assessment/Plan: Hgb 9.2>> 7.8 today. Likely dropped from hemodi;ution since she is 1.7L fluid (+) since admission just 12 hours ago. Iron stores and B12, folate levels ordered. Guaic of stool ordered. Follow H/H daily, transfuse if <7, type and screen has already been ordered. (8) Low vitamin B12 level Assessment/Plan: Replace. (9) Iron deficiency Assessment/Plan: She will need replacement and likely blood tranfusions. (10) Elevated INR Assessment/Plan: Likely from nutritional deficit plus abnormal liver synthesis. Will correct with vit K pre-op, if surgeon requests. - Current Meds Current Meds: Current Medications Generic Name Dose Route Start Last Admin Trade Name Freq PRN Reason Stop Dose Admin Acetaminophen 650 mg 07/24/19 17:26 07/25/19 01:00 Tylenol PO 650 mg Q4HR PRN Administration Pain 1 to 4 Famotidine 10 mg 07/24/19 21:00 07/24/19 21:42 Pepcid IVP 10 mg BID ALMA Administration Dextrose/Sodium Chloride 1,000 mls @ 100 mls/hr 07/24/19 18:30 07/25/19 07:00 D5ns IV 0 mls/hr .Q10H ALMA Infusion Cefepime HCl 2 gm/ Sodium 100 mls @ 200 mls/hr 07/24/19 22:00 07/24/19 22:13 Chloride IV Infused BID ALMA Infusion Metronidazole 500 mg in 100 mls @ 100 mls/hr 07/24/19 22:00 07/25/19 07:00 Flagyl 500 Mg/100 Ml IV 100 mls/hr Q8H ALMA Administration Sodium Chloride 10 ml 07/25/19 01:00 07/24/19 21:42 Normal Saline Flush 0.9% IVP 10 ml 0100,0900,1700 ALMA Administration - Lab Result Fish Bone Diagrams: 07/25/19 04:55 07/25/19 04:55 - EKG Results EKG Interpreted Independently: Yes EKG Comparison: No prior EKG EKG Findings: NSR, rate 81, diffusely flat T waves. - Additional Planning My Orders: My Active Orders 07/24/19 17:26 Activity Orders [RC] Q2HR IO [RC] IOSHIFT Initiate Bowel Care Protocol [RC] .protocol Initiate Flu Vaccine Screening [RC] ONCE Initiate Line Care Protocol [RC] QSHIFT Initiate Personal Care Protoco [RC] .protocol Initiate Pneumonia Vaccine Scr [RC] ONCE Oxygen Therapy [RC] Routine Vital Signs [RC] 0800,1600,0000 Acetaminophen [Tylenol] 650 mg PO Q4HR PRN HYDROmorphone INJ SYRINGE [Dilaudid Inj Syringe] 0.5 mg IVP Q2H PRN Ondansetron Inj [Zofran Inj] 4 mg IVP Q6HR PRN Sodium Chloride Flush 0.9% [Normal Saline Flush 0.9%] 10 ml IVP PRN PRN Code Status [OTHERS] Routine Condition of Patient [OTHERS] Routine DVT Prophylaxis [OTHERS] Routine 07/24/19 17:27 Daily Weight [RC] 0600 IV Insert [RC] .ONCE SCDs [RC] QSHIFT 07/24/19 17:28 General Surgery Consult [CONS] Routine 07/24/19 17:38 Blood Glucose POC [RC] PRN 07/24/19 18:30 Dextrose 5%-0.9% NaCl [D5ns] 1,000 ml IV 100 mls/hr 07/24/19 21:00 Famotidine [Pepcid] 10 mg IVP BID 07/24/19 22:00 Cefepime 2 gm Sodium Chloride 0.9% Minibag [Normal Saline 0.9% Minibag] 100 ml IV BID metroNIDAZOLE 500 MG/100 ML [Flagyl 500 mg/100 ml] 500 mg in 100 ml IV Q8H 07/25/19 01:00 Sodium Chloride Flush 0.9% [Normal Saline Flush 0.9%] 10 ml IVP 0100,0900,1700 07/26/19 05:00 CBC - COMP BLD CT W/AUTO DIFF [HEME] DAILYLAB COMPREHENSIVE METABOLIC PANEL [CHEM] DAILYLAB 07/27/19 05:00 CBC - COMP BLD CT W/AUTO DIFF [HEME] DAILYLAB COMPREHENSIVE METABOLIC PANEL [CHEM] DAILYLAB Subjective - Subjective Patient Reports: Pain (Same mild pain in RUQ) Objective Vital Signs: Vital Signs - 24 hr 07/24/19 07/24/19 07/24/19 14:01 14:06 14:42 Temperature 37.5 C 37.5 C Heart Rate 89 82 88 Heart Rate [ Brachial] Respiratory 18 19 Rate Blood Pressure 108/49 L 113/80 110/55 L Blood Pressure [Right Brachial artery] O2 Saturation 97 97 98 07/24/19 07/24/19 07/24/19 17:00 18:27 20:15 Temperature 37.4 C 38.2 C H Heart Rate 84 77 Heart Rate [ 85 Brachial] Respiratory 14 18 18 Rate Blood Pressure 108/70 Blood Pressure 110/50 L [Right Brachial artery] O2 Saturation 97 97 97 07/25/19 00:00 Temperature 38.2 C H Heart Rate Heart Rate [ 83 Brachial] Respiratory 16 Rate Blood Pressure Blood Pressure 103/50 L [Right Brachial artery] O2 Saturation 99 Oxygen O2 Source Room air I&O (Last 24 Hrs): Intake and Output Totals x24h 07/23/19 07/24/19 07/25/19 23:59 23:59 23:59 Intake Total 760 1003.333 Balance 760 1003.333 General: Alert, Oriented x3 HEENT: Other (Edentulous) Neck: Supple, No JVD Neuro: Alert, Non Focal Cardiovascular: Regular rate, No murmurs Respiratory: No respiratory distress, Breath sounds nml Abdomen: Normal bowel sounds, Soft, Other (Minimal RUQ tenderness, no guarding or rebound) Extremities: No edema - Results Results: Laboratory Results WBC 22.6 x10^3/uL (4.8-10.8) H 07/25/19 04:55 RBC 3.05 10^6/uL (4.20-5.40) L 07/25/19 04:55 Hgb 7.8 g/dL (12.0-16.0) L 07/25/19 04:55 Hct 24.1 % (37.0-47.0) L 07/25/19 04:55 MCV 79.0 fL (81.0-99.0) L 07/25/19 04:55 MCH 25.6 pg (27.0-31.0) L 07/25/19 04:55 MCHC 32.4 g/dL (32.0-36.0) 07/25/19 04:55 RDW 16.3 % (12.0-15.0) H 07/25/19 04:55 Plt Count 354 10^3/uL (130-450) 07/25/19 04:55 MPV 9.3 fL (7.9-10.8) 07/25/19 04:55 Neut # (Auto) Not Reportable 07/25/19 04:55 Lymph # (Auto) Not Reportable 07/25/19 04:55 Ross # (Auto) Not Reportable 07/25/19 04:55 Eos # (Auto) Not Reportable 07/25/19 04:55 Baso # (Auto) Not Reportable 07/25/19 04:55 Absolute Nucleated RBC Not Reportable 07/25/19 04:55 Total Counted 100 07/25/19 04:55 Band Neuts % (Manual) 3 % (0-10) 07/25/19 04:55 Abnorm Lymph % (Manual) 0 % 07/25/19 04:55 Nucleated RBC % Not Reportable 07/25/19 04:55 Neutrophils # (Manual) 19.2 10^3/uL (1.5-6.6) H 07/25/19 04:55 Lymphocytes # (Manual) 2.7 10^3/uL (1.5-3.5) 07/25/19 04:55 Monocytes # (Manual) 0.7 10^3/uL (0.0-1.0) 07/25/19 04:55 Eosinophils # (Manual) 0.0 10^3/uL (0-0.7) 07/25/19 04:55 Basophils # (Manual) 0.0 10^3/uL (0-0.1) 07/25/19 04:55 Differential Comment MANUAL DIFFERENTIAL 07/25/19 04:55 Manual Slide Review Indicated 07/24/19 14:45 WBC Morphology NORMAL APPEARANCE (NORMAL) 07/25/19 04:55 Platelet Estimate NORMAL (130-450,000) (NORMAL) 07/25/19 04:55 Platelet Morphology NORMAL APPEARANCE (NORMAL) 07/25/19 04:55 RBC Morph Micro Appear 1+ ANISOCYTOSIS (NORMAL) 1+ HYPOCHROMASIA (NORMAL) 1+ MICROCYTOSIS (NORMAL) 07/24/19 14:45 RBC Morph Micro Appear 1+ ANISOCYTOSIS (NORMAL) 1+ HYPOCHROMASIA (NORMAL) 1+ MICROCYTOSIS (NORMAL) 07/24/19 14:45 RBC Morph Micro Appear NORMAL APPEARANCE (NORMAL) 07/25/19 04:55 PT 16.3 secs (9.9-12.6) H 07/24/19 15:13 INR 1.5 (0.8-1.2) H 07/24/19 15:13 Sodium 136 mmol/L (135-145) 07/25/19 04:55 Potassium 3.6 mmol/L (3.5-5.0) 07/25/19 04:55 Chloride 106 mmol/L (101-111) 07/25/19 04:55 Carbon Dioxide 20 mmol/L (21-32) L 07/25/19 04:55 Anion Gap 10.0 (6-13) 07/25/19 04:55 BUN 28 mg/dL (6-20) H 07/25/19 04:55 Creatinine 1.6 mg/dL (0.4-1.0) H 07/25/19 04:55 Estimated GFR (MDRD) 32 (>89) L 07/25/19 04:55 Glucose 144 mg/dL (70-100) H 07/25/19 04:55 Lactic Acid 1.4 mmol/L (0.5-2.2) 07/25/19 04:55 Calcium 8.2 mg/dL (8.5-10.3) L 07/25/19 04:55 Phosphorus 3.5 mg/dL (2.5-4.6) 07/25/19 04:55 Magnesium 1.6 mg/dL (1.7-2.8) L 07/25/19 04:55 Iron 8 ug/dL (28-170) L 07/25/19 04:55 TIBC 235 ug/dL (250-450) L 07/25/19 04:55 % Saturation 3 % (20-50) L 07/25/19 04:55 Transferrin 168 mg/dL (192-382) L 07/25/19 04:55 Total Bilirubin 0.6 mg/dL (0.2-1.0) 07/25/19 04:55 AST 15 IU/L (10-42) 07/25/19 04:55 ALT < 10 IU/L (10-60) L 07/25/19 04:55 Alkaline Phosphatase 42 IU/L (42-121) 07/25/19 04:55 Total Protein 6.7 g/dL (6.7-8.2) 07/25/19 04:55 Albumin 2.7 g/dL (3.2-5.5) L 07/25/19 04:55 Globulin 4.0 g/dL (2.1-4.2) 07/25/19 04:55 Albumin/Globulin Ratio 0.7 (1.0-2.2) L 07/25/19 04:55 Lipase 29 U/L (22-51) 07/24/19 17:37 Carcinoembryonic Ag 9.5 ng/mL 07/24/19 19:12 Vitamin B12 177 pg/mL (180-914) L 07/25/19 04:55 Folate 11.46 ng/mL (5.90 - >24.8) 07/25/19 04:55 Blood Type A POSITIVE 07/24/19 19:31 Blood Type Recheck A POSITIVE 07/24/19 14:45 Antibody Screen NEGATIVE 07/24/19 19:31
[2019-07-25] MEDS: ACETAMINOPHEN 325 MG TABLET PO PRN ×2 (10:05→23:46)
[2019-07-25] MEDS: CYANOCOBALAMIN 500 MCG TABLET PO SCH (10:06)
[2019-07-25] MEDS: CEFEPIME 2 GM in SODIUM CHLORIDE 0.9% MINIBAG 100 ML IV SCH ×2 (10:06→20:50)
[2019-07-25] MEDS: FAMOTIDINE 20 MG/2 ML VIAL IVP SCH ×2 (10:06→20:52)
--- NOTE | 2019-07-25 10:13 | PROVIDER PROGRESS NOTE ---
Subjective - General Admit Date: 07/24/19 - Review of Systems All Other Systems: positive: Reviewed and negative - Other Other Information/Narrative: Doing well this AM, no nausea or abd pain. Slept some but gets woken up frequently. Wants coffee. Febrile overnight but leukocytosis and bandemia improving. Objective - Patient Data Vital Signs: Vital Signs x48h Temp Pulse Resp BP Pulse Ox 07/25/19 08:00 39 C H 82 21 102/39 L 99 Weight: Weight 07/23/19 07/24/19 07/25/19 23:59 23:59 23:59 Weight (kg) 74.8 kg 75 kg Intake & Output: Intake and Output Totals x24h 07/23/19 07/24/19 07/25/19 23:59 23:59 23:59 Intake Total 760 1343.333 Balance 760 1343.333 - Lab Results Lab Results: 07/25/19 04:55 07/25/19 04:55 Other Lab Results: Lab Results x24hrs 07/25/19 07/25/19 07/25/19 Range/Units 04:55 04:55 04:55 WBC (4.8-10.8) x10^3/uL RBC (4.20-5.40) 10^6/uL Hgb (12.0-16.0) g/dL Hct (37.0-47.0) % MCV (81.0-99.0) fL MCH (27.0-31.0) pg MCHC (32.0-36.0) g/dL RDW (12.0-15.0) % Plt Count (130-450) 10^3/uL MPV (7.9-10.8) fL Neut # (Auto) Lymph # (Auto) [place] # (Auto) Eos # (Auto) Baso # (Auto) Absolute Nucleated RBC Total Counted Band Neuts % (Manual) (0 - 10) % Abnorm Lymph % (Manual) % Nucleated RBC % Neutrophils # (Manual) (1.5-6.6) 10^3/uL Lymphocytes # (Manual) (1.5-3.5) 10^3/uL Monocytes # (Manual) (0.0-1.0) 10^3/uL Eosinophils # (Manual) (0-0.7) 10^3/uL Basophils # (Manual) (0-0.1) 10^3/uL Differential Comment Manual Slide Review WBC Morphology (NORMAL) Platelet Estimate (NORMAL) Platelet Morphology (NORMAL) RBC Morph Micro Appear (NORMAL) PT (9.9-12.6) secs INR (0.8-1.2) Sodium 136 (135-145) mmol/L Potassium 3.6 (3.5-5.0) mmol/L Chloride 106 (101-111) mmol/L Carbon Dioxide 20 L (21-32) mmol/L Anion Gap 10.0 (6-13) BUN 28 H (6-20) mg/dL Creatinine 1.6 H (0.4-1.0) mg/dL Estimated GFR (MDRD) 32 L (>89) Glucose 144 H (70-100) mg/dL Lactic Acid 1.4 (0.5-2.2) mmol/L Calcium 8.2 L (8.5-10.3) mg/dL Phosphorus 3.5 (2.5-4.6) mg/dL Magnesium 1.6 L (1.7-2.8) mg/dL Iron 8 L (28-170) ug/dL TIBC 235 L (250-450) ug/dL % Saturation 3 L (20-50) % Transferrin 168 L (192-382) mg/dL Total Bilirubin 0.6 (0.2-1.0) mg/dL AST 15 (10-42) IU/L ALT < 10 L (10-60) IU/L Alkaline Phosphatase 42 (42-121) IU/L Total Protein 6.7 (6.7-8.2) g/dL Albumin 2.7 L (3.2-5.5) g/dL Globulin 4.0 (2.1-4.2) g/dL Albumin/Globulin Ratio 0.7 L (1.0-2.2) Lipase (22-51) U/L Carcinoembryonic Ag ng/mL Vitamin B12 177 L (180-914) pg/mL Folate 11.46 (5.90 - >24.8) ng/mL Blood Type Blood Type Recheck Antibody Screen 07/25/19 07/24/19 07/24/19 Range/Units 04:55 23:50 23:05 WBC 22.6 H (4.8-10.8) x10^3/uL RBC 3.05 L (4.20-5.40) 10^6/uL Hgb 7.8 L (12.0-16.0) g/dL Hct 24.1 L (37.0-47.0) % MCV 79.0 L (81.0-99.0) fL MCH 25.6 L (27.0-31.0) pg MCHC 32.4 (32.0-36.0) g/dL RDW 16.3 H (12.0-15.0) % Plt Count 354 (130-450) 10^3/uL MPV 9.3 (7.9-10.8) fL Neut # (Auto) Not Reportable Lymph # (Auto) Not Reportable [place] # (Auto) Not Reportable Eos # (Auto) Not Reportable Baso # (Auto) Not Reportable Absolute Nucleated RBC Not Reportable Total Counted 100 Band Neuts % (Manual) 3 (0 - 10) % Abnorm Lymph % (Manual) 0 % Nucleated RBC % Not Reportable Neutrophils # (Manual) 19.2 H (1.5-6.6) 10^3/uL Lymphocytes # (Manual) 2.7 (1.5-3.5) 10^3/uL Monocytes # (Manual) 0.7 (0.0-1.0) 10^3/uL Eosinophils # (Manual) 0.0 (0-0.7) 10^3/uL Basophils # (Manual) 0.0 (0-0.1) 10^3/uL Differential Comment MANUAL DIFFERENTIAL Manual Slide Review WBC Morphology NORMAL APPEARANCE (NORMAL) Platelet Estimate NORMAL (130-450,000) (NORMAL) Platelet Morphology NORMAL APPEARANCE (NORMAL) RBC Morph Micro Appear NORMAL APPEARANCE (NORMAL) PT (9.9-12.6) secs INR (0.8-1.2) Sodium (135-145) mmol/L Potassium (3.5-5.0) mmol/L Chloride (101-111) mmol/L Carbon Dioxide (21-32) mmol/L Anion Gap (6-13) BUN (6-20) mg/dL Creatinine (0.4-1.0) mg/dL Estimated GFR (MDRD) (>89) Glucose (70-100) mg/dL Lactic Acid 2.3 H 2.7 H (0.5-2.2) mmol/L Calcium (8.5-10.3) mg/dL Phosphorus (2.5-4.6) mg/dL Magnesium (1.7-2.8) mg/dL Iron (28-170) ug/dL TIBC (250-450) ug/dL % Saturation (20-50) % Transferrin (192-382) mg/dL Total Bilirubin (0.2-1.0) mg/dL AST (10-42) IU/L ALT (10-60) IU/L Alkaline Phosphatase (42-121) IU/L Total Protein (6.7-8.2) g/dL Albumin (3.2-5.5) g/dL Globulin (2.1-4.2) g/dL Albumin/Globulin Ratio (1.0-2.2) Lipase (22-51) U/L Carcinoembryonic Ag ng/mL Vitamin B12 (180-914) pg/mL Folate (5.90 - >24.8) ng/mL Blood Type Blood Type Recheck Antibody Screen 07/24/19 07/24/19 07/24/19 Range/Units 19:31 19:12 19:12 WBC (4.8-10.8) x10^3/uL RBC (4.20-5.40) 10^6/uL Hgb (12.0-16.0) g/dL Hct (37.0-47.0) % MCV (81.0-99.0) fL MCH (27.0-31.0) pg MCHC (32.0-36.0) g/dL RDW (12.0-15.0) % Plt Count (130-450) 10^3/uL MPV (7.9-10.8) fL Neut # (Auto) Lymph # (Auto) [place] # (Auto) Eos # (Auto) Baso # (Auto) Absolute Nucleated RBC Total Counted Band Neuts % (Manual) (0 - 10) % Abnorm Lymph % (Manual) % Nucleated RBC % Neutrophils # (Manual) (1.5-6.6) 10^3/uL Lymphocytes # (Manual) (1.5-3.5) 10^3/uL Monocytes # (Manual) (0.0-1.0) 10^3/uL Eosinophils # (Manual) (0-0.7) 10^3/uL Basophils # (Manual) (0-0.1) 10^3/uL Differential Comment Manual Slide Review WBC Morphology (NORMAL) Platelet Estimate (NORMAL) Platelet Morphology (NORMAL) RBC Morph Micro Appear (NORMAL) PT (9.9-12.6) secs INR (0.8-1.2) Sodium (135-145) mmol/L Potassium (3.5-5.0) mmol/L Chloride (101-111) mmol/L Carbon Dioxide (21-32) mmol/L Anion Gap (6-13) BUN (6-20) mg/dL Creatinine (0.4-1.0) mg/dL Estimated GFR (MDRD) (>89) Glucose (70-100) mg/dL Lactic Acid 2.5 H (0.5-2.2) mmol/L Calcium (8.5-10.3) mg/dL Phosphorus (2.5-4.6) mg/dL Magnesium (1.7-2.8) mg/dL Iron (28-170) ug/dL TIBC (250-450) ug/dL % Saturation (20-50) % Transferrin (192-382) mg/dL Total Bilirubin (0.2-1.0) mg/dL AST (10-42) IU/L ALT (10-60) IU/L Alkaline Phosphatase (42-121) IU/L Total Protein (6.7-8.2) g/dL Albumin (3.2-5.5) g/dL Globulin (2.1-4.2) g/dL Albumin/Globulin Ratio (1.0-2.2) Lipase (22-51) U/L Carcinoembryonic Ag 9.5 ng/mL Vitamin B12 (180-914) pg/mL Folate (5.90 - >24.8) ng/mL Blood Type A POSITIVE Blood Type Recheck Antibody Screen NEGATIVE 07/24/19 07/24/19 07/24/19 Range/Units 17:37 15:16 15:13 WBC (4.8-10.8) x10^3/uL RBC (4.20-5.40) 10^6/uL Hgb (12.0-16.0) g/dL Hct (37.0-47.0) % MCV (81.0-99.0) fL MCH (27.0-31.0) pg MCHC (32.0-36.0) g/dL RDW (12.0-15.0) % Plt Count (130-450) 10^3/uL MPV (7.9-10.8) fL Neut # (Auto) Lymph # (Auto) [place] # (Auto) Eos # (Auto) Baso # (Auto) Absolute Nucleated RBC Total Counted Band Neuts % (Manual) (0 - 10) % Abnorm Lymph % (Manual) % Nucleated RBC % Neutrophils # (Manual) (1.5-6.6) 10^3/uL Lymphocytes # (Manual) (1.5-3.5) 10^3/uL Monocytes # (Manual) (0.0-1.0) 10^3/uL Eosinophils # (Manual) (0-0.7) 10^3/uL Basophils # (Manual) (0-0.1) 10^3/uL Differential Comment Manual Slide Review WBC Morphology (NORMAL) Platelet Estimate (NORMAL) Platelet Morphology (NORMAL) RBC Morph Micro Appear (NORMAL) PT 16.3 H (9.9-12.6) secs INR 1.5 H (0.8-1.2) Sodium 134 L (135-145) mmol/L Potassium 3.8 (3.5-5.0) mmol/L Chloride 101 (101-111) mmol/L Carbon Dioxide 20 L (21-32) mmol/L Anion Gap 13.0 (6-13) BUN 28 H (6-20) mg/dL Creatinine 1.6 H (0.4-1.0) mg/dL Estimated GFR (MDRD) 32 L (>89) Glucose 198 H (70-100) mg/dL Lactic Acid (0.5-2.2) mmol/L Calcium 8.7 (8.5-10.3) mg/dL Phosphorus (2.5-4.6) mg/dL Magnesium (1.7-2.8) mg/dL Iron (28-170) ug/dL TIBC (250-450) ug/dL % Saturation (20-50) % Transferrin (192-382) mg/dL Total Bilirubin 1.0 (0.2-1.0) mg/dL AST 16 (10-42) IU/L ALT 10 (10-60) IU/L Alkaline Phosphatase 49 (42-121) IU/L Total Protein 7.5 (6.7-8.2) g/dL Albumin 3.4 (3.2-5.5) g/dL Globulin 4.1 (2.1-4.2) g/dL Albumin/Globulin Ratio 0.8 L (1.0-2.2) Lipase 29 (22-51) U/L Carcinoembryonic Ag ng/mL Vitamin B12 (180-914) pg/mL Folate (5.90 - >24.8) ng/mL Blood Type Blood Type Recheck Antibody Screen 07/24/19 07/24/19 07/24/19 Range/Units 14:47 14:45 14:45 WBC 30.2 H (4.8-10.8) x10^3/uL RBC 3.65 L (4.20-5.40) 10^6/uL Hgb 9.2 L (12.0-16.0) g/dL Hct 28.9 L (37.0-47.0) % MCV 79.2 L (81.0-99.0) fL MCH 25.2 L (27.0-31.0) pg MCHC 31.8 L (32.0-36.0) g/dL RDW 16.2 H (12.0-15.0) % Plt Count 446 (130-450) 10^3/uL MPV 9.7 (7.9-10.8) fL Neut # (Auto) Not Reportable Lymph # (Auto) Not Reportable [place] # (Auto) Not Reportable Eos # (Auto) Not Reportable Baso # (Auto) Not Reportable Absolute Nucleated RBC Not Reportable Total Counted 100 Band Neuts % (Manual) 20 H (0 - 10) % Abnorm Lymph % (Manual) 0 % Nucleated RBC % Not Reportable Neutrophils # (Manual) 27.8 H (1.5-6.6) 10^3/uL Lymphocytes # (Manual) 0.9 L (1.5-3.5) 10^3/uL Monocytes # (Manual) 1.5 H (0.0-1.0) 10^3/uL Eosinophils # (Manual) 0.0 (0-0.7) 10^3/uL Basophils # (Manual) 0.0 (0-0.1) 10^3/uL Differential Comment MANUAL DIFFERENTIAL Manual Slide Review Indicated WBC Morphology NORMAL APPEARANCE (NORMAL) Platelet Estimate NORMAL (130-450,000) (NORMAL) Platelet Morphology NORMAL APPEARANCE (NORMAL) RBC Morph Micro Appear 1+ MICROCYTOSIS (NORMAL) PT (9.9-12.6) secs INR (0.8-1.2) Sodium (135-145) mmol/L Potassium (3.5-5.0) mmol/L Chloride (101-111) mmol/L Carbon Dioxide (21-32) mmol/L Anion Gap (6-13) BUN (6-20) mg/dL Creatinine (0.4-1.0) mg/dL Estimated GFR (MDRD) (>89) Glucose (70-100) mg/dL Lactic Acid 2.2 (0.5-2.2) mmol/L Calcium (8.5-10.3) mg/dL Phosphorus (2.5-4.6) mg/dL Magnesium (1.7-2.8) mg/dL Iron (28-170) ug/dL TIBC (250-450) ug/dL % Saturation (20-50) % Transferrin (192-382) mg/dL Total Bilirubin (0.2-1.0) mg/dL AST (10-42) IU/L ALT (10-60) IU/L Alkaline Phosphatase (42-121) IU/L Total Protein (6.7-8.2) g/dL Albumin (3.2-5.5) g/dL Globulin (2.1-4.2) g/dL Albumin/Globulin Ratio (1.0-2.2) Lipase (22-51) U/L Carcinoembryonic Ag ng/mL Vitamin B12 (180-914) pg/mL Folate (5.90 - >24.8) ng/mL Blood Type Blood Type Recheck A POSITIVE Antibody Screen - Current Medications Current Medications: Current Medications Generic Name Dose Route Start Last Admin Trade Name Freq PRN Reason Stop Dose Admin Famotidine 10 mg 07/24/19 21:00 07/24/19 21:42 Pepcid IVP 10 mg BID ALMA Administration Dextrose/Sodium Chloride 1,000 mls @ 100 mls/hr 07/24/19 18:30 07/25/19 07:00 D5ns IV 0 mls/hr .Q10H ALMA Infusion Cefepime HCl 2 gm/ Sodium 100 mls @ 200 mls/hr 07/24/19 22:00 07/24/19 22:13 Chloride IV Infused BID ALMA Infusion Metronidazole 500 mg in 100 mls @ 100 mls/hr 07/24/19 22:00 07/25/19 08:00 Flagyl 500 Mg/100 Ml IV Infused Q8H ALMA Infusion Sodium Chloride 10 ml 07/25/19 01:00 07/24/19 21:42 Normal Saline Flush 0.9% IVP 10 ml 0100,0900,1700 ALMA Administration - Physical Exam Comments/Other: AAO, NAD EOMI, MMM, no scleral icterus unlabored RA soft, non-distended, minimal ttp RUQ/ LAILA MAEW skin dry and warm Impression/Plan - Problem List Problem List: - mass concerning for malignancy versus giant diverticulum --> more likely cancer, happily no obvious mets or enlarged LNs --> pt refuses endoscopy for evaluation and biopsy --> CEA 9.2, indicative of colon malignancy --> pre op EKG ordered - cont' IV abx, has significant surrounding inflammation and while she has bacteremia from this she is stable and comfortable so will let inflammation improve while undergoing more workup - discussed that pt would most likely need a partial colectomy this admission and she is amenable to whatever needs to be done other than endoscopy --> explained if she worsened this may have to be emergent but given her current clinical picture we have time to continue workup and optimize patient --> persistently febrile but leukocytosis and bandemia improved - ice chips and sips for now, evidence of obstruction from process on imaging although less clinically; also want bowel rest to let inflammation calm and to help empty colon since prep now is high risk - ZANDRA: not sure of true baseline although this has remained consistent for 3 days; her left kidney appears to be atrophic and have an associated mass --> IVFs, monitor --> renal US pending INR elevated: 1.5, no diagnosis of liver disease but albumin low and per karen r mother has poor diet --> monitor, may need pre-treatment for surgery - SCDs, chemoprophylaxis as long as Hg remains stable and we will hold before surgery
[2019-07-25] MEDS: SODIUM CHLORIDE FLUSH 0.9% 10 ML SYRINGE IVP SCH ×2 (10:28→21:01)
[2019-07-25] MEDS: SODIUM CHLORIDE FLUSH 0.9% 10 ML SYRINGE IVP PRN ×2 (10:40→20:53)
[2019-07-25 14:01] LABS: BILIRUBIN,URINE NEGATIVE (NEGATIVE); GLUCOSE, URINE (UA) NEGATIVE (NEGATIVE); KETONES,URINE (UA) NEGATIVE (NEGATIVE); LEUKOCYTE ESTERASE, URINE NEGATIVE (NEGATIVE); NITRITE,URINE NEGATIVE (NEGATIVE); OCCULT BLOOD,URINE NEGATIVE (NEGATIVE); PH,URINE 5.5 PH (5.0-7.5); PROTEIN,URINE TRACE mg/dL (NEGATIVE); UROBILINOGEN,URINE 0.2 (NORMAL) E.U./dL (NORMAL)
[2019-07-25 14:13] LABS: BACTERIA,URINE Moderate /HPF (None Seen); CASTS, URINE 6-10 Granular Casts /LPF; CLARITY,URINE HAZY (CLEAR); RBC,URINE None Seen /HPF (0-5); SQUAMOUS EPITHELIAL CELL,UR MOD Squamous (<= Few)
--- NOTE | 2019-07-25 14:51 | PHARMACY PROGRESS NOTE ---
- Best Possible Medication History Admit Date and Time: 07/24/19 1724 Processed by: Pharmacy Medication History completed: Yes Patient Interview: Completed Secondary Source(s): Pharmacy records As the person ultimately responsible for medication therapy, providers are able to order a medication from an existing home medication list in [facility] via the "Reconcile Routine" prior to Confirmation of that medication by ground crewman mission support. Such practice is discouraged except when the physician, in their clinical judgment, deems that a medical need exists for a medication without regard to previous use.
--- NOTE | 2019-07-25 16:33 | Ultrasound Report ---
Reason: Eval urinary systm,suspect L kidney atrophy mass Procedure Date: 07/25/2019 Accession Number: [id number] / [id number] Procedure: US - Retroperitoneal CPT Code: Final Report FULL RESULT: EXAM: RENAL ULTRASOUND EXAM DATE: 07/25/2019 02:48 PM. CLINICAL HISTORY: Suspect left kidney atrophy or mass. Evaluate urinary system. COMPARISON: ABDOMEN/PELVIS W/ 07/24/2019 4:16 PM. TECHNIQUE: Real-time scanning was performed with static images obtained. FINDINGS: Right Kidney: 10.2 x 5.2 x 5.7 cm. Normal parenchymal echotexture. No visualized shadowing stones or hydronephrosis. Left Kidney: Suboptimally visualized due to overlying bowel gas. 7.8 x 4.0 x 4.1 cm. Atrophic with lobular contour and dilated extrarenal pelvis, as seen on recent CT. Mildly increased parenchymal echogenicity. No visualized stones. Bladder: Bilateral jets seen. Initial bladder volume 196 mL. Postvoid bladder volume 7 mL. Other: None. IMPRESSION: 1. Atrophic left kidney with dilated extrarenal pelvis, as seen on recent CT. 2. Normal sonographic appearance of the right kidney. RADIA
--- NOTE | 2019-07-25 17:21 | ADVANCE CARE PLANNING NOTE ---
Advance Care Planning - Planning Encounter Date: 07/25/19 Time: 16:30 Purpose: To establish her wishes regarding invasive management of the colon mass. Parties in Attendance: I spoke to the patient and the daughter was at bedside. Decisional Capacity of the Patient: She has full decisional capacity. - Diagnosis for Encounter (1) Colonic mass Summary: She has an inflammatory mass in colon containing gas; possible diverticulum with diverticulitis vs malignant tumor. The CEA result has returned and is elevated at 9.2 (normal is < 5), suggesting colon cancer is in fact present. - Encounter Subjective/Patient's Story: This female just moved back to [facility] 8 mos ago. She lives with her adult daughter and ex- (in different parts of the house). She has a poor diet, according to the daughter. Objective/Medical Story: This is a 69 year-old white female with a prior history of diabetes and hypertension for which treatment has been deemed not necessary by her doctor, according to the patient. She also has hyperlipidemia and depression, on treatment for these. She is edentulous, uses upper dentures to speek, but no teeth to eat. She presented with a 2-day history of fever with confusion then positive blood cultures and right upper quadrant pain developed, and imaging is showing an abnormal mass in the colon at the hepatic flexure. Goals of Care: The patient keeps reiterating that "she has control over decisions for her body". She wants to be a full code. She was advised to have a screening colonoscopy in the past and has never wanted one. She was advised a colonoscopy with this current presentation and refused it. She was told that surgery is necessary, and she agrees to the surgery. When asked why she agrees to the invasive surgical procedure and not the semi- invasive colonoscopy, in front of her daughter, she first said "because I'm stubborn". Then the daughter and I asked her to be more specific and explain why she chose the surgery, she answered that in the ER she was told that a complication of a colonoscopy could be bowel perforation, which she does not want to happen. In fact, surgery would probably have a lower likelihood of perforation, because it is a visualized and controlled procedure, however there are risks of undergoing anesthesia, bleeding and infection with the surgery and longer healing post-op. The patient stated that she will likely need the surgery to "get this thing out, so why undergo 2 procedures". The daughter then said she understood her mother's reasoning and was more comfortable with the patient's decision. Plan: Continue the clinical plan for management as discussed: iv antibiotics, bowel rest using clear liquids only enterally to decrease the inflammation, then surgical procedure in 2-3 days. Time spent on advance care plannin min
[2019-07-25] MEDS: PHYTONADIONE 10 MG/ML AMP IVP STA ×2 (21:56→22:14)
[2019-07-25] MEDS ORDERED: PHYTONADIONE 10 MG/ML AMP SUBQ ONE (22:02)
[2019-07-26] MEDS: SODIUM CHLORIDE FLUSH 0.9% 10 ML SYRINGE IVP SCH ×4 (04:29→23:44)
[2019-07-26] MEDS: DEXTROSE 5%-0.9% NACL 1,000 ML IV SCH (04:29)
[2019-07-26 05:03] LABS: BASOPHILS % (AUTO) 0.3 %; EOSINOPHILS # (AUTO) 0.3 10^3/uL (0.0-0.7); EOSINOPHILS % (AUTO) 2.3 %; HGB - HEMOGLOBIN 7.3 g/dL (12.0-16.0); LYMPHOCYTES # (AUTO) 1.5 10^3/uL (1.5-3.5); LYMPHOCYTES % (AUTO) 12.6 %; MEAN CORPUSCULAR HEMOGLOBIN 24.8 pg (27.0-31.0); MEAN CORPUSCULAR HGB CONC 31.2 g/dL (32.0-36.0); MEAN CORPUSCULAR VOLUME 79.6 fL (81.0-99.0); MEAN PLATELET VOLUME 9.7 fL (7.9-10.8); MONOCYTES # (AUTO) 0.7 10^3/uL (0.0-1.0); NEUTROPHILS # (AUTO) 9.4 10^3/uL (1.5-6.6); NEUTROPHILS % (AUTO) 78.1 %; PLT - PLATELET COUNT 326 10^3/uL (130-450); RED BLOOD COUNT 2.94 10^6/uL (4.20-5.40); RED CELL DISTRIBUTION WIDTH 16.6 % (12.0-15.0)
[2019-07-26 05:08] LABS: INR 1.6 (0.8-1.2); PT - PROTHROMBIN TIME 17.4 secs (9.9-12.6)
[2019-07-26 05:13] LABS: ALBUMIN 2.5 g/dL (3.2-5.5); ALBUMIN/GLOBULIN RATIO 0.7 (1.0-2.2); ALKALINE PHOSPHATASE 39 IU/L (42-121); ALT ALANINE AMINOTRANSFERASE < 10 IU/L (10-60); AST ASPARTATE AMINOTRANSFERASE 13 IU/L (10-42); BILIRUBIN,TOTAL 0.3 mg/dL (0.2-1.0); BUN - BLOOD UREA NITROGEN 21 mg/dL (6-20); CARBON DIOXIDE - CO2 20 mmol/L (21-32); CHLORIDE 110 mmol/L (101-111); CREATININE 1.4 mg/dL (0.4-1.0); GFR - MDRD 37 (>89); GLUCOSE 103 mg/dL (70-100); SODIUM 137 mmol/L (135-145); TOTAL PROTEIN 6.2 g/dL (6.7-8.2)
[2019-07-26] MEDS: metroNIDAZOLE 500 MG/100 ML 500 MG/100 ML BAG IV SCH ×3 (06:33→23:44)
[2019-07-26] MEDS ORDERED: PHYTONADIONE 10 MG/ML AMP IVP STA (08:16)
[2019-07-26] MEDS: CYANOCOBALAMIN 500 MCG TABLET PO SCH (08:35)
[2019-07-26] MEDS: CEFEPIME 2 GM in SODIUM CHLORIDE 0.9% MINIBAG 100 ML IV SCH ×2 (08:35→21:29)
[2019-07-26] MEDS: FAMOTIDINE 20 MG/2 ML VIAL IVP SCH ×2 (08:35→20:56)
[2019-07-26] MEDS: SODIUM CHLORIDE FLUSH 0.9% 10 ML SYRINGE IVP PRN (08:39)
[2019-07-26] MEDS ORDERED: PHYTONADIONE INJ (ADULT) 5 MG in SODIUM CHLORIDE 0.9% 50 ML IV ONE (09:00)
--- NOTE | 2019-07-26 09:48 | PROVIDER PROGRESS NOTE ---
Subjective - General Admit Date: 07/24/19 - Review of Systems All Other Systems: positive: Reviewed and negative - Other Other Information/Narrative: Doing well this AM. Changed plan for surgery to today and pt is amenable and glad to have it done and over with. Working on improving INR. Objective - Patient Data Vital Signs: Vital Signs x48h Temp Pulse Resp BP BP Pulse Ox 07/26/19 08:00 36.7 C 64 16 99/52 L 98 07/26/19 04:48 36.6 C 60 16 106/39 L 100 Weight: Weight 07/24/19 07/25/19 07/26/19 23:59 23:59 23:59 Weight (kg) 74.8 kg 75 kg 77 kg Intake & Output: Intake and Output Totals x24h 07/24/19 07/25/19 07/26/19 23:59 23:59 23:59 Intake Total 760 3738.333 911.667 Output Total 575 900 Balance 760 3163.333 11.667 - Lab Results Lab Results: 07/26/19 04:35 07/26/19 04:35 Other Lab Results: Lab Results x24hrs 07/26/19 07/26/19 07/26/19 Range/Units 04:35 04:35 04:35 WBC 12.0 H (4.8-10.8) x10^3/uL RBC 2.94 L (4.20-5.40) 10^6/uL Hgb 7.3 L (12.0-16.0) g/dL Hct 23.4 L (37.0-47.0) % MCV 79.6 L (81.0-99.0) fL MCH 24.8 L (27.0-31.0) pg MCHC 31.2 L (32.0-36.0) g/dL RDW 16.6 H (12.0-15.0) % Plt Count 326 (130-450) 10^3/uL MPV 9.7 (7.9-10.8) fL Neut # (Auto) 9.4 H (1.5-6.6) 10^3/uL Lymph # (Auto) 1.5 (1.5-3.5) 10^3/uL [place] # (Auto) 0.7 (0.0-1.0) 10^3/uL Eos # (Auto) 0.3 (0.0-0.7) 10^3/uL Baso # (Auto) 0.0 (0.0-0.1) 10^3/uL Absolute Nucleated RBC 0.00 x10^3/uL Nucleated RBC % 0.0 /100WBC PT 17.4 H (9.9-12.6) secs INR 1.6 H (0.8-1.2) Sodium 137 (135-145) mmol/L Potassium 3.3 L (3.5-5.0) mmol/L Chloride 110 (101-111) mmol/L Carbon Dioxide 20 L (21-32) mmol/L Anion Gap 7.0 (6-13) BUN 21 H (6-20) mg/dL Creatinine 1.4 H (0.4-1.0) mg/dL Estimated GFR (MDRD) 37 L (>89) Glucose 103 H (70-100) mg/dL POC Whole Bld Glucose (70 - 100) mg/dL Calcium 8.0 L (8.5-10.3) mg/dL Total Bilirubin 0.3 (0.2-1.0) mg/dL AST 13 (10-42) IU/L ALT < 10 L (10-60) IU/L Alkaline Phosphatase 39 L (42-121) IU/L Total Protein 6.2 L (6.7-8.2) g/dL Albumin 2.5 L (3.2-5.5) g/dL Globulin 3.7 (2.1-4.2) g/dL Albumin/Globulin Ratio 0.7 L (1.0-2.2) Urine Color Urine Clarity (CLEAR) Urine pH (5.0-7.5) PH Ur Specific [place] (1.002-1.030) Urine Protein (NEGATIVE) mg/dL Urine Glucose (UA) (NEGATIVE) mg/dL Urine Ketones (NEGATIVE) mg/dL Urine Occult Blood (NEGATIVE) Urine Nitrite (NEGATIVE) Urine Bilirubin (NEGATIVE) Urine Urobilinogen (NORMAL) E.U./dL Ur Leukocyte Esterase (NEGATIVE) Urine RBC (0-5) /HPF Urine WBC (0-5) /HPF Ur Squamous Epith Cells (<= Few) Urine Bacteria (None Seen) /HPF Urine Casts /LPF Urine Culture Comments 07/25/19 07/25/19 Range/Units 16:52 11:45 WBC (4.8-10.8) x10^3/uL RBC (4.20-5.40) 10^6/uL Hgb (12.0-16.0) g/dL Hct (37.0-47.0) % MCV (81.0-99.0) fL MCH (27.0-31.0) pg MCHC (32.0-36.0) g/dL RDW (12.0-15.0) % Plt Count (130-450) 10^3/uL MPV (7.9-10.8) fL Neut # (Auto) (1.5-6.6) 10^3/uL Lymph # (Auto) (1.5-3.5) 10^3/uL [place] # (Auto) (0.0-1.0) 10^3/uL Eos # (Auto) (0.0-0.7) 10^3/uL Baso # (Auto) (0.0-0.1) 10^3/uL Absolute Nucleated RBC x10^3/uL Nucleated RBC % /100WBC PT (9.9-12.6) secs INR (0.8-1.2) Sodium (135-145) mmol/L Potassium (3.5-5.0) mmol/L Chloride (101-111) mmol/L Carbon Dioxide (21-32) mmol/L Anion Gap (6-13) BUN (6-20) mg/dL Creatinine (0.4-1.0) mg/dL Estimated GFR (MDRD) (>89) Glucose (70-100) mg/dL POC Whole Bld Glucose 103 H (70 - 100) mg/dL Calcium (8.5-10.3) mg/dL Total Bilirubin (0.2-1.0) mg/dL AST (10-42) IU/L ALT (10-60) IU/L Alkaline Phosphatase (42-121) IU/L Total Protein (6.7-8.2) g/dL Albumin (3.2-5.5) g/dL Globulin (2.1-4.2) g/dL Albumin/Globulin Ratio (1.0-2.2) Urine Color YELLOW Urine Clarity HAZY (CLEAR) Urine pH 5.5 (5.0-7.5) PH Ur Specific [place] 1.020 (1.002-1.030) Urine Protein TRACE (NEGATIVE) mg/dL Urine Glucose (UA) NEGATIVE (NEGATIVE) mg/dL Urine Ketones NEGATIVE (NEGATIVE) mg/dL Urine Occult Blood NEGATIVE (NEGATIVE) Urine Nitrite NEGATIVE (NEGATIVE) Urine Bilirubin NEGATIVE (NEGATIVE) Urine Urobilinogen 0.2 (NORMAL) (NORMAL) E.U./dL Ur Leukocyte Esterase NEGATIVE (NEGATIVE) Urine RBC None Seen (0-5) /HPF Urine WBC 0-3 (0-5) /HPF Ur Squamous Epith Cells MOD Squamous H (<= Few) Urine Bacteria Moderate H (None Seen) /HPF Urine Casts 6-10 Granular Casts /LPF Urine Culture Comments NOT INDICATED - Current Medications Current Medications: Current Medications Generic Name Dose Route Start Last Admin Trade Name Freq PRN Reason Stop Dose Admin Acetaminophen 650 mg 07/25/19 08:55 07/25/19 23:46 Tylenol PO 650 mg Q4HR PRN Administration Pain or Fever > 38C (100.4F) Cyanocobalamin 500 mcg 07/25/19 09:00 07/26/19 08:35 Vitamin B-12 PO Not Given DAILY [facility] Famotidine 10 mg 07/24/19 21:00 07/26/19 08:35 Pepcid IVP 10 mg BID [facility] Administration Dextrose/Sodium Chloride 1,000 mls @ 100 mls/hr 07/24/19 18:30 07/26/19 07:33 D5ns IV 100 mls/hr .Q10H [facility] Infusion Cefepime HCl 2 gm/ Sodium 100 mls @ 200 mls/hr 07/24/19 22:00 07/26/19 09:21 Chloride IV Infused BID [facility] Infusion Metronidazole 500 mg in 100 mls @ 100 mls/hr 07/24/19 22:00 07/26/19 07:33 Flagyl 500 Mg/100 Ml IV Infused Q8H [facility] Infusion Sodium Chloride 10 ml 07/24/19 17:26 07/26/19 08:39 Normal Saline Flush 0.9% IVP 50 ml PRN PRN Administration NEEDED PER PROVIDER ORDERS Sodium Chloride 10 ml 07/25/19 01:00 07/26/19 04:29 Normal Saline Flush 0.9% IVP Not Given 0100,0900,1700 [facility] - Physical Exam Comments/Other: AAO, NAD EOMI, MMM, no scleral icterus unlabored RA soft, non-distended, minimal ttp RUQ/ LAILA MAEW skin dry and warm Impression/Plan - Problem List Problem List: - mass concerning for malignancy versus giant diverticulum --> more likely cancer, happily no obvious mets or enlarged LNs --> pt refuses endoscopy for evaluation and biopsy --> CEA 9.2, indicative of colon malignancy --> pre op EKG ordered, ECHO as well per medicine- appreciate assistance --> plan for lap v open right colectomy today, given size of lesion and degree of inflammation I am not sure if laparoscopic is feasible or the right answer if it significantly increases length of surgery --> all R/B/A discussed and pt wishes to proceed - ZANDRA: not sure of true baseline although this has remained consistent for 3 days; her left kidney appears to be atrophic and have an associated mass --> IVFs, monitor --> renal US pending INR elevated: 1.6 on recheck, no diagnosis of liver disease but albumin low and per daughter mother has poor diet --> vit K ordered - SCDs, chemoprophylaxis
--- NOTE | 2019-07-26 10:17 | ANESTHESIA ---
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 - Procedure exploratory laparotomy and removal of colon mass Vital Signs: Temp Pulse Resp BP Pulse Ox 37 C 63 18 106/45 L 98 07/26/19 10:05 07/26/19 10:05 07/26/19 10:05 07/26/19 10:05 07/26/19 08:00 Height 5 ft 3 in Weight (kg) 77 kg Body Mass Index 29.2 - Is Patient ?: No - Lab Results Current Lab Results: Laboratory Tests 07/26/19 04:35: PT 17.4 H, INR 1.6 H 07/26/19 04:35: Sodium 137, Potassium 3.3 L, Chloride 110, Carbon Dioxide 20 L, Anion Gap 7.0, BUN 21 H, Creatinine 1.4 H, Estimated GFR (MDRD) 37 L, Glucose 103 H, Calcium 8.0 L, Total Bilirubin 0.3, AST 13, ALT < 10 L, Alkaline Phosphatase 39 L, Total Protein 6.2 L, Albumin 2.5 L, Globulin 3.7, Albumin/Globulin Ratio 0.7 L 07/26/19 04:35: WBC 12.0 H, RBC 2.94 L, Hgb 7.3 L, Hct 23.4 L, MCV 79.6 L, MCH 24.8 L, MCHC 31.2 L, RDW 16.6 H, Plt Count 326, MPV 9.7, Neut # (Auto) 9.4 H, Lymph # (Auto) 1.5, [place] # (Auto) 0.7, Eos # (Auto) 0.3, Baso # (Auto) 0.0, Absolute Nucleated RBC 0.00, Nucleated RBC % 0.0 07/25/19 16:52: POC Whole Bld Glucose 103 H 07/25/19 04:55: Lactic Acid 1.4 07/25/19 04:55: Vitamin B12 177 L, Folate 11.46 07/25/19 04:55: Sodium 136, Potassium 3.6, Chloride 106, Carbon Dioxide 20 L, Anion Gap 10.0, BUN 28 H, Creatinine 1.6 H, Estimated GFR (MDRD) 32 L, Glucose 144 H, Calcium 8.2 L, Phosphorus 3.5, Magnesium 1.6 L, Iron 8 L, TIBC 235 L, % Saturation 3 L, Transferrin 168 L, Total Bilirubin 0.6, AST 15, ALT < 10 L, Alkaline Phosphatase 42, Total Protein 6.7, Albumin 2.7 L, Globulin 4.0, Albumin/Globulin Ratio 0.7 L 07/25/19 04:55: WBC 22.6 H, RBC 3.05 L, Hgb 7.8 L, Hct 24.1 L, MCV 79.0 L, MCH 25.6 L, MCHC 32.4, RDW 16.3 H, Plt Count 354, MPV 9.3, Neut # (Auto) Not Reportable, Lymph # (Auto) Not Reportable, [place] # (Auto) Not Reportable, Eos # (Auto) Not Reportable, Baso # (Auto) Not Reportable, Absolute Nucleated RBC Not Reportable, Total Counted 100, Band Neuts % (Manual) 3, Abnorm Lymph % (Manual) 0, Nucleated RBC % Not Reportable, Neutrophils # (Manual) 19.2 H, Lymphocytes # (Manual) 2.7, Monocytes # (Manual) 0.7, Eosinophils # (Manual) 0.0, Basophils # (Manual) 0.0, Differential Comment MANUAL DIFFERENTIAL, WBC Morphology NORMAL APPEARANCE, Platelet Estimate NORMAL (130-450,000), Platelet Morphology NORMAL APPEARANCE, RBC Morph Micro Appear NORMAL APPEARANCE 07/24/19 23:50: Lactic Acid 2.3 H 07/24/19 23:05: Lactic Acid 2.7 H 07/24/19 19:31: Blood Type A POSITIVE, Antibody Screen NEGATIVE 07/24/19 19:12: Carcinoembryonic Ag 9.5 07/24/19 19:12: Lactic Acid 2.5 H 07/24/19 17:37: Lipase 29 07/24/19 15:16: Sodium 134 L, Potassium 3.8, Chloride 101, Carbon Dioxide 20 L, Anion Gap 13.0, BUN 28 H, Creatinine 1.6 H, Estimated GFR (MDRD) 32 L, Glucose 198 H, Calcium 8.7, Total Bilirubin 1.0, AST 16, ALT 10, Alkaline Phosphatase 49, Total Protein 7.5, Albumin 3.4, Globulin 4.1, Albumin/Globulin Ratio 0.8 L 07/24/19 15:13: PT 16.3 H, INR 1.5 H 07/24/19 14:47: Lactic Acid 2.2 07/24/19 14:45: Blood Type Recheck A POSITIVE 07/24/19 14:45: WBC 30.2 H, RBC 3.65 L, Hgb 9.2 L, Hct 28.9 L, MCV 79.2 L, MCH 25.2 L, MCHC 31.8 L, RDW 16.2 H, Plt Count 446, MPV 9.7, Neut # (Auto) Not Reportable, Lymph # (Auto) Not Reportable, [place] # (Auto) Not Reportable, Eos # (Auto) Not Reportable, Baso # (Auto) Not Reportable, Absolute Nucleated RBC Not Reportable, Total Counted 100, Band Neuts % (Manual) 20 H, Abnorm Lymph % (Manual) 0, Nucleated RBC % Not Reportable, Neutrophils # (Manual) 27.8 H, Lymphocytes # (Manual) 0.9 L, Monocytes # (Manual) 1.5 H, Eosinophils # (Manual) 0.0, Basophils # (Manual) 0.0, Differential Comment MANUAL DIFFERENTIAL, Manual Slide Review Indicated, WBC Morphology NORMAL APPEARANCE, Platelet Estimate NORMAL (130-450,000), Platelet Morphology NORMAL APPEARANCE, RBC Morph Micro Appear 1+ MICROCYTOSIS Fish Bones: 07/26/19 04:35 07/26/19 04:35 Home Medications and Allergies Home Medications: Ambulatory Orders Citalopram Hydrobromide [Citalopram HBr] 20 mg PO DAILY 07/25/19 Simvastatin [Zocor] 40 mg PO QPM 07/25/19 Active Medications Acetaminophen (Tylenol) 650 mg PO Q4HR PRN PRN Reason: Pain or Fever > 38C (100.4F) Last Admin: 07/25/19 23:46 Dose: 650 mg Cyanocobalamin (Vitamin B-12) 500 mcg PO DAILY [facility] Last Admin: 07/26/19 08:35 Dose: Not Given Famotidine (Pepcid) 10 mg IVP BID [facility] Last Admin: 07/26/19 08:35 Dose: 10 mg Hydromorphone HCl (Dilaudid Inj Syringe) 0.5 mg IVP Q2H PRN PRN Reason: Pain 8 to 10 Dextrose/Sodium Chloride (D5ns) 1,000 mls @ 100 mls/hr IV .Q10H [facility] Last Infusion: 07/26/19 07:33 Dose: 100 mls/hr Cefepime HCl 2 gm/ Sodium (Chloride) 100 mls @ 200 mls/hr IV BID [facility] Last Infusion: 07/26/19 09:21 Dose: Infused Metronidazole (Flagyl 500 Mg/100 Ml) 500 mg in 100 mls @ 100 mls/hr IV Q8H [facility] Last Infusion: 07/26/19 07:33 Dose: Infused Ondansetron HCl (Zofran Inj) 4 mg IVP Q6HR PRN PRN Reason: Nausea / Vomiting Sodium Chloride (Normal Saline Flush 0.9%) 10 ml IVP PRN PRN PRN Reason: NEEDED PER PROVIDER ORDERS Last Admin: 07/26/19 08:39 Dose: 50 ml Sodium Chloride (Normal Saline Flush 0.9%) 10 ml IVP 0100,0900,1700 [facility] Last Admin: 07/26/19 04:29 Dose: Not Given Citalopram Hydrobromide [Citalopram HBr] 20 mg PO DAILY 07/25/19 Simvastatin [Zocor] 40 mg PO QPM 07/25/19 Allergies/Adverse Reactions: Allergies Allergy/AdvReac Type Severity Reaction Status Date / Time Sulfa (Sulfonamide Allergy Unknown Verified 07/24/19 14:07 Antibiotics) Anes History & Medical History - Anesthetic History Anesthesia Complications: reports: No previous complications Family history of Anesthesia Complications: Denies Family history of Malignant Hyperthermia: Denies - Medical History Cardiovascular: reports: High cholesterol Pulmonary: reports: None Gastrointestinal: reports: None Urinary: reports: None Neuro: reports: None, Other (vertigo) Musculoskeletal: reports: None, Other (podiatry issue) Endocrine/Autoimmune: reports: Other (undergoing workup for autoimmune disorder. denies taking any antihyperglycemic medication for three years) Blood Disorders: reports: None Skin: reports: None Smoking Status: Former smoker Psychosocial: reports: Depression - Surgical History Gynecologic: Tubal ligation Orthopedic: Knee replacement Exam General: Alert, Oriented x3, Cooperative, No acute distress Dental: Other (edentulous) Mouth Openin Fingerbreadth Neck Mobility: Normal Mallampati classification: II Thyromental Distance: 4-6 cm Respiratory: Lungs clear, Normal breath sounds, No respiratory distress, No accessory muscle use, Other (diminished BS in the bilateral bases) Cardiovascular: Regular rate, Normal S1, Normal S2, No murmurs Abdomen: Other (abdominal pain and tenderness. Colon mass.) Extremities: No clubbing, No cyanosis, No edema, Normal pulses, No tenderness/swelling Neurological: Normal gait, Normal speech, Strength at 5/5 X4 ext, Normal tone, Sensation intact, Cranial nerves 3-12 NL, Reflexes 2+ Mental/Cognitive Status: Alert/Oriented X3, Normal for patient Cognitive Status: Within normal limits Plan Anesthesia Type: General Consent for Procedure(s) Verified and Reviewed: Yes Code Status: Attempt Resuscitation ASA classification: 3-Severe systemic disease Is this case an emergency?: Yes
[2019-07-26] MEDS ORDERED: BUPIVACAINE 0.5% PF 30 ML VIAL ONE (10:57)
[2019-07-26] MEDS ORDERED: LIDOCAINE 1%-EPI 1:100000 20 ML MDV ONE (10:57)
[2019-07-26] MEDS ORDERED: fentaNYL 100 MCG/2 ML VIAL IVP ONE (11:45)
[2019-07-26] MEDS ORDERED: PROPOFOL 200 MG/20 ML VIAL IVP ONE (11:45)
[2019-07-26] MEDS ORDERED: ACETAMINOPHEN 1,000 MG/100 ML 100 ML IV ONE (11:45)
[2019-07-26] MEDS ORDERED: ROCURONIUM 50 MG/5 ML VIAL IVP ONE (11:45)
[2019-07-26] MEDS ORDERED: LIDOCAINE-MPF 2% 5 ML VIAL IM ONE (11:45)
[2019-07-26] MEDS ORDERED: SUCCINYLCHOLINE 200 MG/10 ML VIAL IVP ONE (11:45)
[2019-07-26] MEDS ORDERED: PHENYLEPHRINE 10 MG/ML VIAL IV ONE (11:45)
[2019-07-26] MEDS ORDERED: DEXAMETHASONE 4 MG/ML VIAL IVP ONE (11:45)
[2019-07-26] MEDS ORDERED: LACTATED RINGERS 1,000 ML IV ONE ×4 (11:45)
[2019-07-26] MEDS ORDERED: HYDROmorphone 1 MG/ML SYRINGE IVP ONE (11:45)
[2019-07-26] MEDS ORDERED: ONDANSETRON 4 MG/2 ML VIAL IVP ONE (11:45)
[2019-07-26] MEDS: LACTATED RINGERS 1,000 ML IV ONE (11:45)
--- NOTE | 2019-07-26 11:49 | PROVIDER PROGRESS NOTE ---
Assessment/Plan - Problem List (1) Gram negative sepsis Assessment/Plan: WBC has improved daily from 30>> 22>> 12 today. Continue to treat for suspected diverticulitis with IV Flagyl and iv Cefepime. Await blood cx results. (2) Anaerobic bacteremia Assessment/Plan: WBC has improved daily from 30>> 22>> 12 today. Continue to treat for suspected diverticulitis with IV Flagyl and iv Cefepime. Await blood cx results. (3) Pre-op evaluation Assessment/Plan: EKG done yesterday for pre-op eval, showed diffusely flat T waves. This patient does have a Family Hx of heart disease, and "used to have HTN and DM type 2", she is an ex-smoker who quit >20 years ago. She also has hyperlipidemia for which she was on a statin before hospitalization. If this was an elective surgery, she would have undergone stress testing pre-op for clearance. Since this is urgently needed surgery, an Echo was ordered to evaluate for abnormalities, like resting LV wall motion problems, and there are none; the resting Echo is essentially unremarkable. Her Revised Cardiac Risk Score =1 (open intra-peritoneal surgery). She has a 0.5 - 1% diony-operative risk of OH, CHF, cardiac arrest, cardiac , non-fatal OH, according to the literature. She has been seen in pre-op by the Anesthesiologist and the Surgeon has explained the procedure to her and the patient has agreed and signed consent. (4) Colonic mass Assessment/Plan: She has an inflammatory mass in colon containing gas; possible diverticulum with diverticulitis vs malignant tumor. The CEA result has returned and is elevated at 9.2 (normal is < 5), suggesting colon cancer is in fact present. The plan is for taking her to the OR today, for excision. (5) Diverticulitis Assessment/Plan: Await pathology specimen culture as well. (6) Elevated INR Assessment/Plan: This is likely related to malnutrition. She received vitamin K overnight. Will give additional vitamin K today and FFP iv infusion preoperatively. (7) Anemia Assessment/Plan: She has underlying iron deficiency anemia, documented by low iron stores, tested this admission. Oral iron had been started. Her hemoglobin is close to 7 today. Anesthesia request that she be transfused preoperatively. Will order 1U PRBCs. (8) Hypokalemia Assessment/Plan: Replace potassium. Follow BMP every 12-24 hours (9) CKD (chronic kidney disease) Assessment/Plan: She has a relatively flat pattern of elevated creatinines consistent with CKD, stage III. This may have caused her prior hypertension. The cause of this could be having only 1 functioning kidney (see below). Plan to avoid nephrotoxic agents. Continue with gentle IV hydration Monitor BMP daily. (10) Atrophy of left kidney Assessment/Plan: This was confirmed by a retroperitoneal ultrasound done yesterday. She may have had this all her life. This may be the cause for the renal failure - Current Meds Current Meds: Current Medications Generic Name Dose Route Start Last Admin Trade Name Freq PRN Reason Stop Dose Admin Acetaminophen 650 mg 07/25/19 08:55 07/25/19 23:46 Tylenol PO 650 mg Q4HR PRN Administration Pain or Fever > 38C (100.4F) Cyanocobalamin 500 mcg 07/25/19 09:00 07/26/19 08:35 Vitamin B-12 PO Not Given DAILY [facility] Famotidine 10 mg 07/24/19 21:00 07/26/19 08:35 Pepcid IVP 10 mg BID [facility] Administration Dextrose/Sodium Chloride 1,000 mls @ 100 mls/hr 07/24/19 18:30 07/26/19 07:33 D5ns IV 100 mls/hr .Q10H [facility] Infusion Cefepime HCl 2 gm/ Sodium 100 mls @ 200 mls/hr 07/24/19 22:00 07/26/19 09:21 Chloride IV Infused BID [facility] Infusion Metronidazole 500 mg in 100 mls @ 100 mls/hr 07/24/19 22:00 07/26/19 07:33 Flagyl 500 Mg/100 Ml IV Infused Q8H [facility] Infusion Sodium Chloride 10 ml 07/24/19 17:26 07/26/19 08:39 Normal Saline Flush 0.9% IVP 50 ml PRN PRN Administration NEEDED PER PROVIDER ORDERS Sodium Chloride 10 ml 07/25/19 01:00 07/26/19 11:06 Normal Saline Flush 0.9% IVP Not Given 0100,0900,1700 [facility] - Lab Result Fish Bone Diagrams: 07/26/19 04:35 07/26/19 04:35 - Additional Planning My Orders: My Active Orders 03/01/20 FRESH FROZEN PLASMA Stat RBC, LEUKOREDUCED Stat 07/26/19 07:50 Echo Transthoracic Complete [ECHO] Routine 07/26/19 08:16 Transfuse Fresh Frozen Plasma [RC] .ONCE 07/26/19 10:39 Transfuse RBCs Leukoreduced [RC] .ONCE 07/27/19 05:00 CBC - COMP BLD CT W/AUTO DIFF [HEME] DAILYLAB COMPREHENSIVE METABOLIC PANEL [CHEM] DAILYLAB Subjective - Subjective Patient Reports: Abdominal Pain Objective Vital Signs: Vital Signs - 24 hr 07/25/19 07/25/19 07/25/19 15:54 20:39 22:33 Temperature 37.5 C 38 C H 37.5 C Heart Rate Heart Rate [ 69 73 Brachial] Respiratory 20 18 Rate Blood Pressure Blood Pressure 102/82 H [Left Brachial artery] Blood Pressure 101/51 L [Right Brachial artery] O2 Saturation 100 100 07/25/19 07/26/19 07/26/19 23:59 04:48 08:00 Temperature 38 C H 36.6 C 36.7 C Heart Rate Heart Rate [ 78 60 64 Brachial] Respiratory 18 16 16 Rate Blood Pressure Blood Pressure 98/49 L 106/39 L [Left Brachial artery] Blood Pressure 99/52 L [Right Brachial artery] O2 Saturation 95 100 98 07/26/19 07/26/19 07/26/19 09:58 10:05 10:15 Temperature 37 C 37 C 36.7 C Heart Rate 66 63 67 Heart Rate [ Brachial] Respiratory 20 18 18 Rate Blood Pressure 104/51 L 106/45 L 101/49 L Blood Pressure [Left Brachial artery] Blood Pressure [Right Brachial artery] O2 Saturation 07/26/19 07/26/19 10:45 11:28 Temperature 37.2 C 37.3 C Heart Rate 66 67 Heart Rate [ Brachial] Respiratory 18 16 Rate Blood Pressure 109/55 L 101/53 L Blood Pressure [Left Brachial artery] Blood Pressure [Right Brachial artery] O2 Saturation Oxygen O2 Source Room air I&O (Last 24 Hrs): Intake and Output Totals x24h 07/24/19 07/25/19 07/26/19 23:59 23:59 23:59 Intake Total 760 3738.333 1118.667 Output Total 575 900 Balance 760 3163.333 218.667 General: Alert HEENT: Mucous membr. moist/pink, Other (Pale) Neck: Supple Neuro: Non Focal Cardiovascular: Regular rate Respiratory: No respiratory distress Abdomen: Soft Extremities: No edema - Results Results: Laboratory Results WBC 12.0 x10^3/uL (4.8-10.8) H 07/26/19 04:35 RBC 2.94 10^6/uL (4.20-5.40) L 07/26/19 04:35 Hgb 7.3 g/dL (12.0-16.0) L 07/26/19 04:35 Hct 23.4 % (37.0-47.0) L 07/26/19 04:35 MCV 79.6 fL (81.0-99.0) L 07/26/19 04:35 MCH 24.8 pg (27.0-31.0) L 07/26/19 04:35 MCHC 31.2 g/dL (32.0-36.0) L 07/26/19 04:35 RDW 16.6 % (12.0-15.0) H 07/26/19 04:35 Plt Count 326 10^3/uL (130-450) 07/26/19 04:35 MPV 9.7 fL (7.9-10.8) 07/26/19 04:35 Neut # (Auto) 9.4 10^3/uL (1.5-6.6) H 07/26/19 04:35 Lymph # (Auto) 1.5 10^3/uL (1.5-3.5) 07/26/19 04:35 [place] # (Auto) 0.7 10^3/uL (0.0-1.0) 07/26/19 04:35 Eos # (Auto) 0.3 10^3/uL (0.0-0.7) 07/26/19 04:35 Baso # (Auto) 0.0 10^3/uL (0.0-0.1) 07/26/19 04:35 Absolute Nucleated RBC 0.00 x10^3/uL 07/26/19 04:35 Total Counted 100 07/25/19 04:55 Band Neuts % (Manual) 3 % (0-10) 07/25/19 04:55 Abnorm Lymph % (Manual) 0 % 07/25/19 04:55 Nucleated RBC % 0.0 /100WBC 07/26/19 04:35 Neutrophils # (Manual) 19.2 10^3/uL (1.5-6.6) H 07/25/19 04:55 Lymphocytes # (Manual) 2.7 10^3/uL (1.5-3.5) 07/25/19 04:55 Monocytes # (Manual) 0.7 10^3/uL (0.0-1.0) 07/25/19 04:55 Eosinophils # (Manual) 0.0 10^3/uL (0-0.7) 07/25/19 04:55 Basophils # (Manual) 0.0 10^3/uL (0-0.1) 07/25/19 04:55 Differential Comment MANUAL DIFFERENTIAL 07/25/19 04:55 Manual Slide Review Indicated 07/24/19 14:45 WBC Morphology NORMAL APPEARANCE (NORMAL) 07/25/19 04:55 Platelet Estimate NORMAL (130-450,000) (NORMAL) 07/25/19 04:55 Platelet Morphology NORMAL APPEARANCE (NORMAL) 07/25/19 04:55 RBC Morph Micro Appear 1+ ANISOCYTOSIS (NORMAL) 1+ HYPOCHROMASIA (NORMAL) 1+ MICROCYTOSIS (NORMAL) 07/24/19 14:45 RBC Morph Micro Appear 1+ ANISOCYTOSIS (NORMAL) 1+ HYPOCHROMASIA (NORMAL) 1+ MICROCYTOSIS (NORMAL) 07/24/19 14:45 RBC Morph Micro Appear NORMAL APPEARANCE (NORMAL) 07/25/19 04:55 PT 17.4 secs (9.9-12.6) H 07/26/19 04:35 INR 1.6 (0.8-1.2) H 07/26/19 04:35 Sodium 137 mmol/L (135-145) 07/26/19 04:35 Potassium 3.3 mmol/L (3.5-5.0) L 07/26/19 04:35 Chloride 110 mmol/L (101-111) 07/26/19 04:35 Carbon Dioxide 20 mmol/L (21-32) L 07/26/19 04:35 Anion Gap 7.0 (6-13) 07/26/19 04:35 BUN 21 mg/dL (6-20) H 07/26/19 04:35 Creatinine 1.4 mg/dL (0.4-1.0) H 07/26/19 04:35 Estimated GFR (MDRD) 37 (>89) L 07/26/19 04:35 Glucose 103 mg/dL (70-100) H 07/26/19 04:35 POC Whole Bld Glucose 103 mg/dL (70 - 100) H 07/25/19 16:52 Lactic Acid 1.4 mmol/L (0.5-2.2) 07/25/19 04:55 Calcium 8.0 mg/dL (8.5-10.3) L 07/26/19 04:35 Phosphorus 3.5 mg/dL (2.5-4.6) 07/25/19 04:55 Magnesium 1.6 mg/dL (1.7-2.8) L 07/25/19 04:55 Iron 8 ug/dL (28-170) L 07/25/19 04:55 TIBC 235 ug/dL (250-450) L 07/25/19 04:55 % Saturation 3 % (20-50) L 07/25/19 04:55 Transferrin 168 mg/dL (192-382) L 07/25/19 04:55 Total Bilirubin 0.3 mg/dL (0.2-1.0) 07/26/19 04:35 AST 13 IU/L (10-42) 07/26/19 04:35 ALT < 10 IU/L (10-60) L 07/26/19 04:35 Alkaline Phosphatase 39 IU/L (42-121) L 07/26/19 04:35 Total Protein 6.2 g/dL (6.7-8.2) L 07/26/19 04:35 Albumin 2.5 g/dL (3.2-5.5) L 07/26/19 04:35 Globulin 3.7 g/dL (2.1-4.2) 07/26/19 04:35 Albumin/Globulin Ratio 0.7 (1.0-2.2) L 07/26/19 04:35 Lipase 29 U/L (22-51) 07/24/19 17:37 Carcinoembryonic Ag 9.5 ng/mL 07/24/19 19:12 Vitamin B12 177 pg/mL (180-914) L 07/25/19 04:55 Folate 11.46 ng/mL (5.90 - >24.8) 07/25/19 04:55 Urine Color YELLOW 07/25/19 11:45 Urine Clarity HAZY (CLEAR) 07/25/19 11:45 Urine pH 5.5 PH (5.0-7.5) 07/25/19 11:45 Ur Specific [place] 1.020 (1.002-1.030) 07/25/19 11:45 Urine Protein TRACE mg/dL (NEGATIVE) 07/25/19 11:45 Urine Glucose (UA) NEGATIVE mg/dL (NEGATIVE) 07/25/19 11:45 Urine Ketones NEGATIVE mg/dL (NEGATIVE) 07/25/19 11:45 Urine Occult Blood NEGATIVE (NEGATIVE) 07/25/19 11:45 Urine Nitrite NEGATIVE (NEGATIVE) 07/25/19 11:45 Urine Bilirubin NEGATIVE (NEGATIVE) 07/25/19 11:45 Urine Urobilinogen 0.2 (NORMAL) E.U./dL (NORMAL) 07/25/19 11:45 Ur Leukocyte Esterase NEGATIVE (NEGATIVE) 07/25/19 11:45 Urine RBC None Seen /HPF (0-5) 07/25/19 11:45 Urine WBC 0-3 /HPF (0-5) 07/25/19 11:45 Ur Squamous Epith Cells MOD Squamous (<= Few) H 07/25/19 11:45 Urine Bacteria Moderate /HPF (None Seen) H 07/25/19 11:45 Urine Casts 6-10 Granular Casts /LPF 07/25/19 11:45 Urine Culture Comments NOT INDICATED 07/25/19 11:45 Blood Type A POSITIVE 07/24/19 19:31 Blood Type Recheck A POSITIVE 07/24/19 14:45 Antibody Screen NEGATIVE 07/24/19 19:31 Crossmatch IS Only See Detail 07/24/19 19:31
--- NOTE | 2019-07-26 12:47 | CONSULTATION NOTE ---
Consultation Report: Went into see the patient for preop anesthesia evaluation. She appears in no acute distress. She is going for colectomy for removal of a colon mass. She has had a drop in her HnH. She is not on any anticoagulants, denies any liver disease. She has received some ffp. I spoke with the hospitalist and she agrees to transfuse a unite of PRBC before heading to the OR. Since her INR is higher than normal, we will not do a thoracic epidural or a tap block. Informed consent was obtained from the patient. Her and her family's questions were answered. Anesthesia related risks were explained to her. She agreed with the anesthetic plans and agrees to proceed.
[2019-07-26] MEDS ORDERED: SUGAMMADEX 200 MG/2 ML VIAL IVP ONE (13:55)
[2019-07-26] MEDS ORDERED: BUPIVACAINE 0.5%-EPI 1:200000 PF 30 ML VIAL SUBQ ONE (14:15)
[2019-07-26] MEDS ORDERED: LIDOCAINE 1%-EPI 1:100000 20 ML MDV SUBQ ONE (14:15)
[2019-07-26] MEDS ORDERED: ACETAMINOPHEN 1,000 MG/100 ML 100 ML IV PRN (14:39)
--- NOTE | 2019-07-26 14:45 | IMMEDIATE POSTOPERATIVE NOTE ---
Immediate Postoperative Note - Procedure Note Procedure Date: 07/26/19 Pre-Op Diagnosis: Inflammatory mass of the hepatic flexure Procedure: En bloc resection of right hemicolon and omentum with primary anastomosis Post-Op Diagnosis: same Primary Surgeon: Milady Doyle MD Valet Attendant: Miguel Khanna MD Anesthesia Type: General ET tube Findings: large inflammatory mass of hepatic flexure involving omentum; no invasion of surrounding structures, no evidence of metastatic disease healthy bowel for primary anastomosis mild anticoagulation Estimated Blood Loss (in cc): 100 Specimens and Cultures: right colon en bloc with omentum Plan of Care: return to floor bed for ongoing care; ramírez to stay in tonight and remove tomorrow per protocol
[2019-07-26] MEDS: NS W/20 MEQ KCL 1,000 ML IV SCH (16:08)
[2019-07-26] MEDS ORDERED: SODIUM CHLORIDE 0.9% 1,000 ML IV ONE ×2 (19:53→21:36)
[2019-07-27] MEDS ORDERED: SODIUM CHLORIDE 0.9% 1,000 ML IV ONE (00:36)
[2019-07-27] MEDS: HYDROmorphone 0.5 MG/0.5 ML SYRINGE IVP PRN (04:56)
[2019-07-27 06:12] LABS: BASOPHILS % (AUTO) 0.2 %; EOSINOPHILS % (AUTO) 0.1 %; HGB - HEMOGLOBIN 8.4 g/dL (12.0-16.0); LYMPHOCYTES % (AUTO) 6.7 %; MEAN CORPUSCULAR HEMOGLOBIN 25.1 pg (27.0-31.0); MEAN CORPUSCULAR HGB CONC 31.1 g/dL (32.0-36.0); MEAN CORPUSCULAR VOLUME 80.8 fL (81.0-99.0); MEAN PLATELET VOLUME 9.8 fL (7.9-10.8); MONOCYTES # (AUTO) 0.6 10^3/uL (0.0-1.0); MONOCYTES % (AUTO) 4.3 %; NEUTROPHILS % (AUTO) 87.5 %; PLT - PLATELET COUNT 329 10^3/uL (130-450); RED BLOOD COUNT 3.34 10^6/uL (4.20-5.40); RED CELL DISTRIBUTION WIDTH 16.7 % (12.0-15.0); WHITE BLOOD COUNT 14.8 x10^3/uL (4.8-10.8)
[2019-07-27 06:21] LABS: ALBUMIN 2.4 g/dL (3.2-5.5); ALBUMIN/GLOBULIN RATIO 0.7 (1.0-2.2); BILIRUBIN,TOTAL 0.4 mg/dL (0.2-1.0); CALCIUM 7.4 mg/dL (8.5-10.3); CREATININE 1.1 mg/dL (0.4-1.0); INR 1.4 (0.8-1.2); PT - PROTHROMBIN TIME 15.3 secs (9.9-12.6)
[2019-07-27] MEDS: CYANOCOBALAMIN 500 MCG TABLET PO SCH (09:11)
[2019-07-27] MEDS: NS W/20 MEQ KCL 1,000 ML IV SCH (09:11)
[2019-07-27] MEDS: FAMOTIDINE 20 MG/2 ML VIAL IVP SCH ×2 (09:11→21:13)
[2019-07-27] MEDS: metroNIDAZOLE 500 MG/100 ML 500 MG/100 ML BAG IV SCH ×3 (09:11→23:57)
[2019-07-27] MEDS: SODIUM CHLORIDE FLUSH 0.9% 10 ML SYRINGE IVP SCH ×3 (09:11→23:57)
[2019-07-27] MEDS: oxyCODONE 5 MG TABLET PO PRN ×3 (09:20→21:13)
--- NOTE | 2019-07-27 10:12 | PROVIDER PROGRESS NOTE ---
Assessment/Plan - Problem List (1) Colonic mass Assessment/Plan: POD #1 after partial colectomy. Yesterday the colon mass was removed en bloc and the colon margins were able to be anastamosed. The [place] will come out today. Post-op orders for diet and pain meds and activity per General Surgeon, Dr Doyle or covering surgeon. (2) Diverticulitis Assessment/Plan: The pathology report of the colon specimen is pending. She was being treated for the CT finding being either a malignant tumor or a possible large diverticulum with diverticilitis. Continue present management. (3) Anaerobic bacteremia Assessment/Plan: Upon searching for the final identification of the bacterium, for which the patient was called back to the hospital from home, for this admission, it was noted that she never had gram NEGATIVE bacteria in her blood cultures, which she was told, and the ER note states. The blood cultures were all gram POSITIVE bacilli. In addition the growth is in anaerobic bottles and the Microbiology lab has stated that this is likely a Clostridium species. The diagnosis of GRAM NEGATIVE should be removed form the record, and corrected to say GRAM POSITIVE BACILLI sepsis, even at admission. The bacterial identification and sensitivities are still pending. Awaiting those results. Her WBC has improved on the current antibiotics. Continue empiric Flagyl plus Cefepime. (4) Elevated INR Assessment/Plan: At admission she had an elevated INR of 1.5, and preop it was still high yesterday at 1.6 and she needed vitamin K several doses plus FFP immediately before surgery. Today the INR is 1.4. There are indications of post-op bleeding, except the low BP overnight last night. Will give additional vitamin K today. Follow INR daily. (5) Anemia Assessment/Plan: She had anemia at admission and blood levels showed she was Iron depleted and B12 depleted. She was started on po Iron and B12 replacement. Pre-op she got 1U PRBCs yesterday, and she will also need resumption of oral Iron plus vitamin B12. Follow CBC daily. Transfuse if Hgb <7. (6) CKD (chronic kidney disease) Assessment/Plan: At admission her creatinine was 1.6 which remained flat for several days. In the last 2 days there is been improvement, following several days of IV hydration. The etiology of her CKD may be what was discovered with abdominal imaging at this admission: she has atrophy of the left kidney, and it is unknown if she has had that all her life. Today the creat is even better at 1.1. Continue gentle iv hydration, especially since she is still npo. (7) Atrophy of left kidney Assessment/Plan: As above. There is also a mass associated with the atrophic kidney. This may need further evaluation if she needs staging of her probable colon cancer. (8) Mass of left kidney Assessment/Plan: This would need further evaluation if she needs staging of her probable colon cancer. (9) Depression Assessment/Plan: Her home med continues here. (10) Gram negative sepsis Assessment/Plan: Upon searching for the final identification of the bacterium, for which the patient was called back to the hospital from home, for this admission, it was noted that she never had gram NEGATIVE bacteria in her blood cultures. They were all gram POSITIVE bacilli. In addition the growth is in anaerobic bottles and the Microbiology lab has stated that this is likely a Clostridium species. This diagnosis of GRAM NEGATIVE should be removed form the record, and corrected to say GRAM POSITIVE BACILLI sepsis, even at admission. - Current Meds Current Meds: Current Medications Generic Name Dose Route Start Last Admin Trade Name Freq PRN Reason Stop Dose Admin Acetaminophen 650 mg 07/25/19 08:55 07/25/19 23:46 Tylenol PO 650 mg Q4HR PRN Administration Pain or Fever > 38C (100.4F) Cyanocobalamin 500 mcg 07/25/19 09:00 07/27/19 09:11 Vitamin B-12 PO 500 mcg DAILY ALMA Administration Famotidine 10 mg 07/24/19 21:00 07/27/19 09:11 Pepcid IVP 10 mg BID ALMA Administration Hydromorphone HCl 0.5 mg 07/24/19 17:26 07/27/19 04:56 Dilaudid Inj Syringe IVP 0.5 mg Q2H PRN Administration Pain 8 to 10 Cefepime HCl 2 gm/ Sodium 100 mls @ 200 mls/hr 07/24/19 22:00 07/26/19 22:10 Chloride IV Infused BID ALMA Infusion Acetaminophen 100 mls @ 400 mls/hr 07/26/19 14:39 07/26/19 21:20 Ofirmev IV Infused Q6HR PRN Infusion PAIN Potassium Chloride/Sodium Chloride 1,000 mls @ 83.333 mls/hr 07/26/19 15:00 07/27/19 09:11 Normal Saline 0.9% W/20 Meq Kcl IV 83.33 mls/hr .Q12H ALMA Administration Metronidazole 500 mg in 100 mls @ 100 mls/hr 07/27/19 00:00 07/27/19 09:11 Flagyl 500 Mg/100 Ml IV 100 mls/hr Q8H ALMA Administration Oxycodone HCl 5 mg 07/26/19 14:41 07/27/19 09:20 Roxicodone PO 5 mg Q4HR PRN Administration PAIN Sodium Chloride 10 ml 07/24/19 17:26 07/26/19 08:39 Normal Saline Flush 0.9% IVP 50 ml PRN PRN Administration NEEDED PER PROVIDER ORDERS Sodium Chloride 10 ml 07/25/19 01:00 07/27/19 09:11 Normal Saline Flush 0.9% IVP 10 ml 0100,0900,1700 ALMA Administration - Lab Result Fish Bone Diagrams: 07/27/19 05:33 07/27/19 05:33 - Additional Planning My Orders: My Active Orders 07/26/19 10:39 Transfuse RBCs Leukoreduced [RC] .ONCE 07/27/19 00:00 metroNIDAZOLE 500 MG/100 ML [Flagyl 500 mg/100 ml] 500 mg in 100 ml IV Q8H 07/28/19 05:00 CBC - COMP BLD CT W/AUTO DIFF [HEME] DAILYLAB CMP [COMPREHENSIVE METABOLIC PANEL] [CHEM] DAILYLAB PT WITH INR [COAG] DAILYLAB 07/29/19 05:00 CBC - COMP BLD CT W/AUTO DIFF [HEME] DAILYLAB CMP [COMPREHENSIVE METABOLIC PANEL] [CHEM] DAILYLAB 07/30/19 05:00 CBC - COMP BLD CT W/AUTO DIFF [HEME] DAILYLAB CMP [COMPREHENSIVE METABOLIC PANEL] [CHEM] DAILYLAB Subjective - Subjective Patient Reports: Pain (She rates her post-op pain 4-5/10.) Nursing Reports: Other (She ia able to dangle at side of bed and get up to sit in a chair.) Objective Vital Signs: Vital Signs - 24 hr 07/26/19 07/26/19 07/26/19 10:15 10:45 11:28 Temperature 36.7 C 37.2 C 37.3 C Heart Rate 67 66 67 Heart Rate [ Brachial] Heart Rate [ Sitting (After 1 Minute)] Heart Rate [ Standing (After 1 Minute)] Heart Rate [ Supine] Respiratory 18 18 16 Rate Blood Pressure 101/49 L 109/55 L 101/53 L Blood Pressure [Left Brachial artery] Blood Pressure [Right Brachial artery] Blood Pressure [Sitting (After 1 Minute)] Blood Pressure [Standing ( After 1 Minute) ] Blood Pressure [Supine] O2 Saturation 07/26/19 07/26/19 07/26/19 14:36 14:40 14:45 Temperature 36.9 C 36.7 C 37.2 C Heart Rate 85 101 H 101 H Heart Rate [ Brachial] Heart Rate [ Sitting (After 1 Minute)] Heart Rate [ Standing (After 1 Minute)] Heart Rate [ Supine] Respiratory 14 18 18 Rate Blood Pressure 129/67 123/59 L 158/61 H Blood Pressure [Left Brachial artery] Blood Pressure [Right Brachial artery] Blood Pressure [Sitting (After 1 Minute)] Blood Pressure [Standing ( After 1 Minute) ] Blood Pressure [Supine] O2 Saturation 98 99 99 07/26/19 07/26/19 07/26/19 14:50 14:55 15:00 Temperature 37.2 C 37.2 C 36.9 C Heart Rate 80 79 80 Heart Rate [ Brachial] Heart Rate [ Sitting (After 1 Minute)] Heart Rate [ Standing (After 1 Minute)] Heart Rate [ Supine] Respiratory 14 12 12 Rate Blood Pressure 136/60 H 123/63 130/60 Blood Pressure [Left Brachial artery] Blood Pressure [Right Brachial artery] Blood Pressure [Sitting (After 1 Minute)] Blood Pressure [Standing ( After 1 Minute) ] Blood Pressure [Supine] O2 Saturation 99 99 99 07/26/19 07/26/19 07/26/19 15:05 15:10 15:20 Temperature 36.7 C 36.9 C 36.7 C Heart Rate 78 63 59 L Heart Rate [ Brachial] Heart Rate [ Sitting (After 1 Minute)] Heart Rate [ Standing (After 1 Minute)] Heart Rate [ Supine] Respiratory 12 10 L 12 Rate Blood Pressure 124/57 L 133/66 H 123/50 L Blood Pressure [Left Brachial artery] Blood Pressure [Right Brachial artery] Blood Pressure [Sitting (After 1 Minute)] Blood Pressure [Standing ( After 1 Minute) ] Blood Pressure [Supine] O2 Saturation 99 99 99 07/26/19 07/26/19 07/26/19 15:26 15:35 15:50 Temperature 36.7 C 36.9 C Heart Rate 75 Heart Rate [ 57 L 59 L Brachial] Heart Rate [ Sitting (After 1 Minute)] Heart Rate [ Standing (After 1 Minute)] Heart Rate [ Supine] Respiratory 12 12 16 Rate Blood Pressure 121/62 Blood Pressure 122/55 L 113/53 L [Left Brachial artery] Blood Pressure [Right Brachial artery] Blood Pressure [Sitting (After 1 Minute)] Blood Pressure [Standing ( After 1 Minute) ] Blood Pressure [Supine] O2 Saturation 99 100 100 07/26/19 07/26/19 07/26/19 16:05 16:20 16:50 Temperature 36.7 C 36.5 C Heart Rate Heart Rate [ 56 L 56 L 59 L Brachial] Heart Rate [ Sitting (After 1 Minute)] Heart Rate [ Standing (After 1 Minute)] Heart Rate [ Supine] Respiratory 16 16 12 Rate Blood Pressure Blood Pressure 109/54 L 110/53 L 114/55 L [Left Brachial artery] Blood Pressure [Right Brachial artery] Blood Pressure [Sitting (After 1 Minute)] Blood Pressure [Standing ( After 1 Minute) ] Blood Pressure [Supine] O2 Saturation 100 100 98 07/26/19 07/26/19 07/26/19 17:00 17:20 17:50 Temperature Heart Rate Heart Rate [ 64 52 L Brachial] Heart Rate [ Sitting (After 1 Minute)] Heart Rate [ Standing (After 1 Minute)] Heart Rate [ Supine] Respiratory 16 16 Rate Blood Pressure Blood Pressure 107/70 98/45 L [Left Brachial artery] Blood Pressure [Right Brachial artery] Blood Pressure [Sitting (After 1 Minute)] Blood Pressure [Standing ( After 1 Minute) ] Blood Pressure [Supine] O2 Saturation 97 98 98 07/26/19 07/26/19 07/26/19 18:30 18:50 19:50 Temperature 36.6 C Heart Rate Heart Rate [ 63 57 L 61 Brachial] Heart Rate [ Sitting (After 1 Minute)] Heart Rate [ Standing (After 1 Minute)] Heart Rate [ Supine] Respiratory 18 15 16 Rate Blood Pressure Blood Pressure 107/60 94/52 L 86/56 L [Left Brachial artery] Blood Pressure [Right Brachial artery] Blood Pressure [Sitting (After 1 Minute)] Blood Pressure [Standing ( After 1 Minute) ] Blood Pressure [Supine] O2 Saturation 97 94 97 07/26/19 07/26/19 07/26/19 19:54 21:15 21:20 Temperature Heart Rate Heart Rate [ 59 L 54 L Brachial] Heart Rate [ Sitting (After 1 Minute)] Heart Rate [ Standing (After 1 Minute)] Heart Rate [ Supine] Respiratory Rate Blood Pressure Blood Pressure 102/56 L 73/50 L 97/57 L [Left Brachial artery] Blood Pressure 108/57 L [Right Brachial artery] Blood Pressure [Sitting (After 1 Minute)] Blood Pressure [Standing ( After 1 Minute) ] Blood Pressure [Supine] O2 Saturation 07/26/19 07/26/19 07/26/19 21:30 22:29 23:40 Temperature 36.4 C L Heart Rate Heart Rate [ 51 L 53 L 57 L Brachial] Heart Rate [ Sitting (After 1 Minute)] Heart Rate [ Standing (After 1 Minute)] Heart Rate [ Supine] Respiratory 16 Rate Blood Pressure Blood Pressure 93/53 L 93/53 L 117/40 L [Left Brachial artery] Blood Pressure [Right Brachial artery] Blood Pressure [Sitting (After 1 Minute)] Blood Pressure [Standing ( After 1 Minute) ] Blood Pressure [Supine] O2 Saturation 98 07/27/19 07/27/19 07/27/19 00:45 01:00 02:00 Temperature Heart Rate Heart Rate [ 56 L 44 L 43 L Brachial] Heart Rate [ Sitting (After 1 Minute)] Heart Rate [ Standing (After 1 Minute)] Heart Rate [ Supine] Respiratory Rate Blood Pressure Blood Pressure 107/58 L 116/63 114/54 L [Left Brachial artery] Blood Pressure [Right Brachial artery] Blood Pressure [Sitting (After 1 Minute)] Blood Pressure [Standing ( After 1 Minute) ] Blood Pressure [Supine] O2 Saturation 07/27/19 07/27/19 07/27/19 03:00 05:00 08:00 Temperature 36.6 C Heart Rate Heart Rate [ 47 L 65 61 Brachial] Heart Rate [ Sitting (After 1 Minute)] Heart Rate [ Standing (After 1 Minute)] Heart Rate [ Supine] Respiratory 18 Rate Blood Pressure Blood Pressure 124/66 106/81 H 110/56 L [Left Brachial artery] Blood Pressure [Right Brachial artery] Blood Pressure [Sitting (After 1 Minute)] Blood Pressure [Standing ( After 1 Minute) ] Blood Pressure [Supine] O2 Saturation 99 07/27/19 07/27/19 08:58 09:22 Temperature Heart Rate Heart Rate [ Brachial] Heart Rate [ 74 Sitting (After 1 Minute)] Heart Rate [ 78 Standing (After 1 Minute)] Heart Rate [ 58 L Supine] Respiratory 16 Rate Blood Pressure Blood Pressure [Left Brachial artery] Blood Pressure [Right Brachial artery] Blood Pressure 131/95 H [Sitting (After 1 Minute)] Blood Pressure 120/78 [Standing ( After 1 Minute) ] Blood Pressure 115/54 L [Supine] O2 Saturation 98 Oxygen O2 Source Room air I&O (Last 24 Hrs): Intake and Output Totals x24h 07/25/19 07/26/19 07/27/19 23:59 23:59 23:59 Intake Total 3738.333 2860.825 2740.252 Output Total 575 1100 300 Balance 3163.333 0924.953 4452.252 General: Alert, Oriented x3 HEENT: Mucous membr. moist/pink, Other (Pale) Neck: Supple Neuro: Alert, Non Focal Cardiovascular: Regular rate Respiratory: No respiratory distress Abdomen: Soft, Other ((+) Bowel sounds. Bandaged abdomen) Extremities: No edema - Results Results: Laboratory Results WBC 14.8 x10^3/uL (4.8-10.8) H 07/27/19 05:33 RBC 3.34 10^6/uL (4.20-5.40) L 07/27/19 05:33 Hgb 8.4 g/dL (12.0-16.0) L 07/27/19 05:33 Hct 27.0 % (37.0-47.0) L 07/27/19 05:33 MCV 80.8 fL (81.0-99.0) L 07/27/19 05:33 MCH 25.1 pg (27.0-31.0) L 07/27/19 05:33 MCHC 31.1 g/dL (32.0-36.0) L 07/27/19 05:33 RDW 16.7 % (12.0-15.0) H 07/27/19 05:33 Plt Count 329 10^3/uL (130-450) 07/27/19 05:33 MPV 9.8 fL (7.9-10.8) 07/27/19 05:33 Neut # (Auto) 13.0 10^3/uL (1.5-6.6) H 07/27/19 05:33 Lymph # (Auto) 1.0 10^3/uL (1.5-3.5) L 07/27/19 05:33 Mclean # (Auto) 0.6 10^3/uL (0.0-1.0) 07/27/19 05:33 Eos # (Auto) 0.0 10^3/uL (0.0-0.7) 07/27/19 05:33 Baso # (Auto) 0.0 10^3/uL (0.0-0.1) 07/27/19 05:33 Absolute Nucleated RBC 0.00 x10^3/uL 07/27/19 05:33 Total Counted 100 07/25/19 04:55 Band Neuts % (Manual) 3 % (0-10) 07/25/19 04:55 Abnorm Lymph % (Manual) 0 % 07/25/19 04:55 Nucleated RBC % 0.0 /100WBC 07/27/19 05:33 Neutrophils # (Manual) 19.2 10^3/uL (1.5-6.6) H 07/25/19 04:55 Lymphocytes # (Manual) 2.7 10^3/uL (1.5-3.5) 07/25/19 04:55 Monocytes # (Manual) 0.7 10^3/uL (0.0-1.0) 07/25/19 04:55 Eosinophils # (Manual) 0.0 10^3/uL (0-0.7) 07/25/19 04:55 Basophils # (Manual) 0.0 10^3/uL (0-0.1) 07/25/19 04:55 Differential Comment MANUAL DIFFERENTIAL 07/25/19 04:55 Manual Slide Review Indicated 07/24/19 14:45 WBC Morphology NORMAL APPEARANCE (NORMAL) 07/25/19 04:55 Platelet Estimate NORMAL (130-450,000) (NORMAL) 07/25/19 04:55 Platelet Morphology NORMAL APPEARANCE (NORMAL) 07/25/19 04:55 RBC Morph Micro Appear 1+ ANISOCYTOSIS (NORMAL) 1+ HYPOCHROMASIA (NORMAL) 1+ MICROCYTOSIS (NORMAL) 07/24/19 14:45 RBC Morph Micro Appear 1+ ANISOCYTOSIS (NORMAL) 1+ HYPOCHROMASIA (NORMAL) 1+ MICROCYTOSIS (NORMAL) 07/24/19 14:45 RBC Morph Micro Appear NORMAL APPEARANCE (NORMAL) 07/25/19 04:55 PT 15.3 secs (9.9-12.6) H 07/27/19 05:33 INR 1.4 (0.8-1.2) H 07/27/19 05:33 Sodium 137 mmol/L (135-145) 07/27/19 05:33 Potassium 4.3 mmol/L (3.5-5.0) 07/27/19 05:33 Chloride 114 mmol/L (101-111) H 07/27/19 05:33 Carbon Dioxide 17 mmol/L (21-32) L 07/27/19 05:33 Anion Gap 6.0 (6-13) 07/27/19 05:33 BUN 17 mg/dL (6-20) 07/27/19 05:33 Creatinine 1.1 mg/dL (0.4-1.0) H 07/27/19 05:33 Estimated GFR (MDRD) 49 (>89) L 07/27/19 05:33 Glucose 153 mg/dL (70-100) H 07/27/19 05:33 POC Whole Bld Glucose 103 mg/dL (70 - 100) H 07/25/19 16:52 Lactic Acid 1.4 mmol/L (0.5-2.2) 07/25/19 04:55 Calcium 7.4 mg/dL (8.5-10.3) L 07/27/19 05:33 Phosphorus 3.5 mg/dL (2.5-4.6) 07/25/19 04:55 Magnesium 1.6 mg/dL (1.7-2.8) L 07/25/19 04:55 Iron 8 ug/dL (28-170) L 07/25/19 04:55 TIBC 235 ug/dL (250-450) L 07/25/19 04:55 % Saturation 3 % (20-50) L 07/25/19 04:55 Transferrin 168 mg/dL (192-382) L 07/25/19 04:55 Total Bilirubin 0.4 mg/dL (0.2-1.0) 07/27/19 05:33 AST 16 IU/L (10-42) 07/27/19 05:33 ALT 11 IU/L (10-60) 07/27/19 05:33 Alkaline Phosphatase 37 IU/L (42-121) L 07/27/19 05:33 Total Protein 6.0 g/dL (6.7-8.2) L 07/27/19 05:33 Albumin 2.4 g/dL (3.2-5.5) L 07/27/19 05:33 Globulin 3.6 g/dL (2.1-4.2) 07/27/19 05:33 Albumin/Globulin Ratio 0.7 (1.0-2.2) L 07/27/19 05:33 Lipase 29 U/L (22-51) 07/24/19 17:37 Carcinoembryonic Ag 9.5 ng/mL 07/24/19 19:12 Vitamin B12 177 pg/mL (180-914) L 07/25/19 04:55 Folate 11.46 ng/mL (5.90 - >24.8) 07/25/19 04:55 Urine Color YELLOW 07/25/19 11:45 Urine Clarity HAZY (CLEAR) 07/25/19 11:45 Urine pH 5.5 PH (5.0-7.5) 07/25/19 11:45 Ur Specific [place] 1.020 (1.002-1.030) 07/25/19 11:45 Urine Protein TRACE mg/dL (NEGATIVE) 07/25/19 11:45 Urine Glucose (UA) NEGATIVE mg/dL (NEGATIVE) 07/25/19 11:45 Urine Ketones NEGATIVE mg/dL (NEGATIVE) 07/25/19 11:45 Urine Occult Blood NEGATIVE (NEGATIVE) 07/25/19 11:45 Urine Nitrite NEGATIVE (NEGATIVE) 07/25/19 11:45 Urine Bilirubin NEGATIVE (NEGATIVE) 07/25/19 11:45 Urine Urobilinogen 0.2 (NORMAL) E.U./dL (NORMAL) 07/25/19 11:45 Ur Leukocyte Esterase NEGATIVE (NEGATIVE) 07/25/19 11:45 Urine RBC None Seen /HPF (0-5) 07/25/19 11:45 Urine WBC 0-3 /HPF (0-5) 07/25/19 11:45 Ur Squamous Epith Cells MOD Squamous (<= Few) H 07/25/19 11:45 Urine Bacteria Moderate /HPF (None Seen) H 07/25/19 11:45 Urine Casts 6-10 Granular Casts /LPF 07/25/19 11:45 Urine Culture Comments NOT INDICATED 07/25/19 11:45 Blood Type A POSITIVE 07/24/19 19:31 Blood Type Recheck A POSITIVE 07/24/19 14:45 Antibody Screen NEGATIVE 07/24/19 19:31 Crossmatch IS Only See Detail 07/24/19 19:31
[2019-07-27] MEDS ORDERED: PHYTONADIONE 10 MG/ML AMP IVP STA (10:36)
[2019-07-27] MEDS ORDERED: PHYTONADIONE INJ (ADULT) 5 MG in SODIUM CHLORIDE 0.9% 50 ML IV ONE ×2 (11:00→11:30)
[2019-07-27] MEDS: ACETAMINOPHEN 325 MG TABLET PO PRN (11:35)
[2019-07-27] MEDS: CEFEPIME 2 GM in SODIUM CHLORIDE 0.9% MINIBAG 100 ML IV SCH ×2 (11:35→21:17)
--- NOTE | 2019-07-27 12:30 | OPERATIVE REPORT ---
Operative Report - General Admit Date: 07/24/19 Procedure Date: 07/26/19 Pre-Op Diagnosis: Inflammatory mass of hepatic flexure; suspected malignancy Procedure Performed: En bloc resection of right colon and omentum with primary ileocolic anastomosis Post Op Diagnosis: same - Procedure Note Primary Surgeon: Milady Doyle MD Secondary Surgeon: Miguel Khanna MD Anesthesia Provider: JIMENEZ Anesthesia Technique: General ET tube Pathology: right colon en bloc with omentum Estimated Blood Loss (mL): 100 Indications: 69yo F presenting with bacteremia due to a large inflammatory mass of the hepatic flexure. She has never had a colonoscopy by choice. CEA is elevated, increasing suspicion for malignancy. She is treated with antibiotics and bowel rest and sepsis resolves quickly. Given the likely microperforation evident, she is not prepped. We discussed all risks, benefits, and alternatives and after informed consent signed we proceed with resection of diseased bowel and will treat with presumption of malignancy. Findings: large inflammatory mass of hepatic flexure involving omentum; no invasion of surrounding structures, no evidence of metastatic disease healthy bowel for primary anastomosis mild coagulopathy Complications: mild coagulopathy - Other Other Information/Narrative: The patient was taken to the operating room and placed on the operating table in supine position. General anesthesia was induced without complications. The abdomen was prepped and draped in the usual sterile fashion. Exam reveals a palpable mass taking up much of the right upper quadrant consistent with the inflammatory mass. Local anesthesia was infiltrated over the entrance site. Using a 10 blade scalpel, a midline supraumbilical incision was made and a cut down performed to introduce a Navarrete trocar. Pneumoperitoneum was introduced and the abdomen examined. The large inflammatory mass was noted with involved omentum; this took up a significant amount of the relatively small abdominal cavity and the benefits of laparoscopy were quickly overwhelmed. Examination did reveal no omental studding or liver lesions. The trocar was removed and the incision extended to a full midline exposure and this was carried down through the subcutaneous tissues with electrocautery. The abdomen was exposed and further exam revealed soft and mobile cecum and remaining bowels. The area involving the mass is quite stuck. Gentle finger fracturing released it from the liver and gallbladder. Small volume purulence was present and loculated in the omentum. A self-retaining retractor system was placed and dissection begun along the right Line of Toldt to release the cecum and right colon. This was carried up to the flexure but extensive inflammation made the mass quite stuck so attention was turned to the transverse colon. There was adequate length of the transverse colon beyond the involved area that allowed for more than 5cm margins and all was well vascularized. A site was chosen and the colon divided with a linear PREMA stapler with a 75mm tissue load. The mesentery and omentum was then divided with a ligasure device, ensuring hemostasis. This was carried towards the mass, keeping involved omentum en bloc with the specimen. Blunt dissection with finger fracturing and careful electrocautery was then used to separate the mass from surrounding tissues, including duodenum and pancreas. No invasion of surrounding structures was present. The right branch of the middle colic was divided with the ligasure device towards its base to ensure adequate resection for cancer. The mesentery was divided down past the cecum and involving the ileocolic pedicle after identification of the ureter. The terminal ileum was then divided using a stapler and the specimen, being now fully released, was passed off the field. Both bowel ends were noted to be viable with minor bleeding. These easily came together with no tension. A side to side anastomosis was made using a 75mm tissue load to connect the anti- mesenteric borders. No active bleeding was noted and the bowel remained patent after another staple load was used to close the open ends. A small opening was still present and this was closed with running 2-0 PDS then 3-0 silk in a Lembert fashion. The ends were healthy and viable with strong blood supply and the anastomosis patent. A 3-0 silk stitch was placed at the base of the staple line to offload tension. Gloves and gowns were then changed. The abdomen is then thoroughly irrigated and free fluid suctioned. Hemostasis was ensured; pt was mildly coagulopathic pre-op and was treated and we encountered only mild effects of this. The fascia was then closed using an 0 PDS looped suture in a running fashion. The subcutaneous tissues were irrigated and dried. The skin was re-approximated using skin madyson. The abdomen was cleaned and dried and a sterile dressing was applied. The patient was awakened and taken to the PACU in stable condition. All counts were correct at the end of the procedure.
--- NOTE | 2019-07-27 13:54 | PROVIDER PROGRESS NOTE ---
Subjective - General Admit Date: 07/24/19 Procedure Date: 07/26/19 Post Op Days: 1 Procedure Performed: right colectomy - Review of Systems Wound/Incisions: positive: Dressing dry and intact, No drainage General: positive: No symptoms, Appetite (hungry) Pulmonary: positive: No symptoms Cardiovascular: positive: No symptoms Gastrointestinal: positive: Abdominal pain (moderate), Other (thirsty). negative: Nausea, Vomiting, Flatus Genitourinary: positive: No symptoms Musculoskeletal: positive: No symptoms All Other Systems: positive: Reviewed and negative - Other Other Information/Narrative: feels pretty well, hungry, ok pain control, no n/v Objective - Patient Data Reviewed Vital Signs: Yes Vital Signs: Vital Signs x48h Temp Pulse Pulse Pulse Pulse Resp BP 07/27/19 09:22 16 07/27/19 08:58 74 78 58 L 07/27/19 08:00 36.6 C 61 18 110/56 L BP BP BP Pulse Ox 07/27/19 09:22 98 07/27/19 08:58 131/95 H 120/78 115/54 L 07/27/19 08:00 99 Weight: Weight 07/25/19 07/26/19 07/27/19 23:59 23:59 23:59 Weight (kg) 75 kg 77 kg 78.5 kg Intake & Output: Intake and Output Totals x24h 07/25/19 07/26/19 07/27/19 23:59 23:59 23:59 Intake Total 3738.333 2860.825 3340.752 Output Total 575 1100 300 Balance 3163.333 3463.103 5559.752 - Lab Results Lab Results: 07/27/19 05:33 07/27/19 05:33 Other Lab Results: Lab Results x24hrs 07/27/19 07/27/19 07/27/19 Range/Units 05:33 05:33 05:33 WBC 14.8 H (4.8-10.8) x10^3/uL RBC 3.34 L (4.20-5.40) 10^6/uL Hgb 8.4 L (12.0-16.0) g/dL Hct 27.0 L (37.0-47.0) % MCV 80.8 L (81.0-99.0) fL MCH 25.1 L (27.0-31.0) pg MCHC 31.1 L (32.0-36.0) g/dL RDW 16.7 H (12.0-15.0) % Plt Count 329 (130-450) 10^3/uL MPV 9.8 (7.9-10.8) fL Neut # (Auto) 13.0 H (1.5-6.6) 10^3/uL Lymph # (Auto) 1.0 L (1.5-3.5) 10^3/uL [place] # (Auto) 0.6 (0.0-1.0) 10^3/uL Eos # (Auto) 0.0 (0.0-0.7) 10^3/uL Baso # (Auto) 0.0 (0.0-0.1) 10^3/uL Absolute Nucleated RBC 0.00 x10^3/uL Nucleated RBC % 0.0 /100WBC PT 15.3 H (9.9-12.6) secs INR 1.4 H (0.8-1.2) Sodium 137 (135-145) mmol/L Potassium 4.3 (3.5-5.0) mmol/L Chloride 114 H (101-111) mmol/L Carbon Dioxide 17 L (21-32) mmol/L Anion Gap 6.0 (6-13) BUN 17 (6-20) mg/dL Creatinine 1.1 H (0.4-1.0) mg/dL Estimated GFR (MDRD) 49 L (>89) Glucose 153 H (70-100) mg/dL Calcium 7.4 L (8.5-10.3) mg/dL Total Bilirubin 0.4 (0.2-1.0) mg/dL AST 16 (10-42) IU/L ALT 11 (10-60) IU/L Alkaline Phosphatase 37 L (42-121) IU/L Total Protein 6.0 L (6.7-8.2) g/dL Albumin 2.4 L (3.2-5.5) g/dL Globulin 3.6 (2.1-4.2) g/dL Albumin/Globulin Ratio 0.7 L (1.0-2.2) Blood Type Antibody Screen Crossmatch IS Only 07/24/19 Range/Units 19:31 WBC (4.8-10.8) x10^3/uL RBC (4.20-5.40) 10^6/uL Hgb (12.0-16.0) g/dL Hct (37.0-47.0) % MCV (81.0-99.0) fL MCH (27.0-31.0) pg MCHC (32.0-36.0) g/dL RDW (12.0-15.0) % Plt Count (130-450) 10^3/uL MPV (7.9-10.8) fL Neut # (Auto) (1.5-6.6) 10^3/uL Lymph # (Auto) (1.5-3.5) 10^3/uL [place] # (Auto) (0.0-1.0) 10^3/uL Eos # (Auto) (0.0-0.7) 10^3/uL Baso # (Auto) (0.0-0.1) 10^3/uL Absolute Nucleated RBC x10^3/uL Nucleated RBC % /100WBC PT (9.9-12.6) secs INR (0.8-1.2) Sodium (135-145) mmol/L Potassium (3.5-5.0) mmol/L Chloride (101-111) mmol/L Carbon Dioxide (21-32) mmol/L Anion Gap (6-13) BUN (6-20) mg/dL Creatinine (0.4-1.0) mg/dL Estimated GFR (MDRD) (>89) Glucose (70-100) mg/dL Calcium (8.5-10.3) mg/dL Total Bilirubin (0.2-1.0) mg/dL AST (10-42) IU/L ALT (10-60) IU/L Alkaline Phosphatase (42-121) IU/L Total Protein (6.7-8.2) g/dL Albumin (3.2-5.5) g/dL Globulin (2.1-4.2) g/dL Albumin/Globulin Ratio (1.0-2.2) Blood Type Cancelled Antibody Screen Cancelled Crossmatch IS Only See Detail - Current Medications Current Medications: Current Medications Generic Name Dose Route Start Last Admin Trade Name Freq PRN Reason Stop Dose Admin Acetaminophen 650 mg 07/25/19 08:55 07/27/19 11:35 Tylenol PO 650 mg Q4HR PRN Administration Pain or Fever > 38C (100.4F) Cyanocobalamin 500 mcg 07/25/19 09:00 07/27/19 09:11 Vitamin B-12 PO 500 mcg DAILY ALMA Administration Famotidine 10 mg 07/24/19 21:00 07/27/19 09:11 Pepcid IVP 10 mg BID ALMA Administration Hydromorphone HCl 0.5 mg 07/24/19 17:26 07/27/19 04:56 Dilaudid Inj Syringe IVP 0.5 mg Q2H PRN Administration Pain 8 to 10 Cefepime HCl 2 gm/ Sodium 100 mls @ 200 mls/hr 07/24/19 22:00 07/27/19 12:07 Chloride IV Infused BID [facility]MA Infusion Acetaminophen 100 mls @ 400 mls/hr 07/26/19 14:39 07/26/19 21:20 Ofirmev IV Infused Q6HR PRN Infusion PAIN Potassium Chloride/Sodium Chloride 1,000 mls @ 83.333 mls/hr 07/26/19 15:00 07/27/19 09:11 Normal Saline 0.9% W/20 Meq Kcl IV 83.33 mls/hr .Q12H ALMA Administration Metronidazole 500 mg in 100 mls @ 100 mls/hr 07/27/19 00:00 07/27/19 10:16 Flagyl 500 Mg/100 Ml IV Infused Q8H [facility] Infusion Oxycodone HCl 5 mg 07/26/19 14:41 07/27/19 09:20 Roxicodone PO 5 mg Q4HR PRN Administration PAIN Sodium Chloride 10 ml 07/24/19 17:26 07/26/19 08:39 Normal Saline Flush 0.9% IVP 50 ml PRN PRN Administration NEEDED PER PROVIDER ORDERS Sodium Chloride 10 ml 07/25/19 01:00 07/27/19 09:11 Normal Saline Flush 0.9% IVP 10 ml 0100,0900,1700 ALMA Administration - Physical Exam Wound/Incisions: positive: Dressing dry and intact, No drainage General Appearance: positive: Alert, Mild distress Eyes Bilateral: positive: No scleral icterus ENT: positive: Dry mucous membranes Neck: positive: Nml inspection, No JVD Respiratory: positive: Chest non-tender, Rales (bibasilar, partially clear with cough) Cardiovascular: positive: Regular rate & rhythm, No murmur, No gallop Abdomen: positive: Tenderness (mild incisional), Abnml bowel sounds (hypoactive) Skin: positive: Color nml, No rash, Warm, Dry. negative: Cyanosis Extremities: positive: Nml appearance, No pedal edema. 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 Doing well overall. Plan: start clear liquid diet, OOB, pulmonary toilet, decrease IVF, ow as per Dr. Rick.
[2019-07-27] MEDS ORDERED: LACTATED RINGERS 1,000 ML IV SCH (15:00)
[2019-07-27] MEDS: LACTATED RINGERS 1,000 ML IV SCH (17:10)
[2019-07-28] MEDS: oxyCODONE 5 MG TABLET PO PRN ×2 (03:45→08:55)
[2019-07-28 05:56] LABS: BASOPHILS # (AUTO) 0.1 10^3/uL (0.0-0.1); BASOPHILS % (AUTO) 0.4 %; EOSINOPHILS # (AUTO) 0.2 10^3/uL (0.0-0.7); EOSINOPHILS % (AUTO) 1.9 %; HGB - HEMOGLOBIN 8.2 g/dL (12.0-16.0); LYMPHOCYTES % (AUTO) 17.3 %; MEAN CORPUSCULAR HEMOGLOBIN 24.8 pg (27.0-31.0); MEAN CORPUSCULAR HGB CONC 30.8 g/dL (32.0-36.0); MEAN CORPUSCULAR VOLUME 80.4 fL (81.0-99.0); MEAN PLATELET VOLUME 9.6 fL (7.9-10.8); MONOCYTES % (AUTO) 8.2 %; NEUTROPHILS # (AUTO) 8.3 10^3/uL (1.5-6.6); NEUTROPHILS % (AUTO) 70.7 %; PLT - PLATELET COUNT 346 10^3/uL (130-450); RED BLOOD COUNT 3.31 10^6/uL (4.20-5.40); RED CELL DISTRIBUTION WIDTH 17.1 % (12.0-15.0); WHITE BLOOD COUNT 11.7 x10^3/uL (4.8-10.8)
[2019-07-28 06:00] LABS: INR 1.3 (0.8-1.2); PT - PROTHROMBIN TIME 14.3 secs (9.9-12.6)
[2019-07-28 06:11] LABS: ALBUMIN 2.5 g/dL (3.2-5.5); ALBUMIN/GLOBULIN RATIO 0.8 (1.0-2.2); BILIRUBIN,TOTAL 0.5 mg/dL (0.2-1.0); CALCIUM 7.8 mg/dL (8.5-10.3); TOTAL PROTEIN 5.8 g/dL (6.7-8.2)
--- NOTE | 2019-07-28 08:02 | PROVIDER PROGRESS NOTE ---
Subjective - General Admit Date: 07/24/19 Procedure Date: 07/26/19 Post Op Days: 2 Procedure Performed: right colectomy - Review of Systems Wound/Incisions: positive: Dressing dry and intact, No drainage - Other Other Information/Narrative: Doing well, sore but as expected. [place] CLD with no nausea. Passing some flatus but also burping. Abd soft, inc clean and intact. Objective - Patient Data Vital Signs: Vital Signs x48h Temp Pulse Resp BP Pulse Ox 07/28/19 00:00 36.9 C 57 L 16 139/64 H 98 Weight: Weight 07/26/19 07/27/19 07/28/19 23:59 23:59 23:59 Weight (kg) 77 kg 78.5 kg 78 kg Intake & Output: Intake and Output Totals x24h 07/26/19 07/27/19 07/28/19 23:59 23:59 23:59 Intake Total 2860.825 5006.003 100 Output Total 1100 1325 700 Balance 8312.211 0119.003 -600 - Lab Results Lab Results: 07/28/19 05:33 07/28/19 05:33 Other Lab Results: Lab Results x24hrs 07/28/19 07/28/19 07/28/19 Range/Units 05:33 05:33 05:33 WBC 11.7 H (4.8-10.8) x10^3/uL RBC 3.31 L (4.20-5.40) 10^6/uL Hgb 8.2 L (12.0-16.0) g/dL Hct 26.6 L (37.0-47.0) % MCV 80.4 L (81.0-99.0) fL MCH 24.8 L (27.0-31.0) pg MCHC 30.8 L (32.0-36.0) g/dL RDW 17.1 H (12.0-15.0) % Plt Count 346 (130-450) 10^3/uL MPV 9.6 (7.9-10.8) fL Neut # (Auto) 8.3 H (1.5-6.6) 10^3/uL Lymph # (Auto) 2.0 (1.5-3.5) 10^3/uL [place] # (Auto) 1.0 (0.0-1.0) 10^3/uL Eos # (Auto) 0.2 (0.0-0.7) 10^3/uL Baso # (Auto) 0.1 (0.0-0.1) 10^3/uL Absolute Nucleated RBC 0.00 x10^3/uL Nucleated RBC % 0.0 /100WBC PT 14.3 H (9.9-12.6) secs INR 1.3 H (0.8-1.2) Sodium 139 (135-145) mmol/L Potassium 3.7 (3.5-5.0) mmol/L Chloride 115 H (101-111) mmol/L Carbon Dioxide 18 L (21-32) mmol/L Anion Gap 6.0 (6-13) BUN 16 (6-20) mg/dL Creatinine 1.0 (0.4-1.0) mg/dL Estimated GFR (MDRD) 55 L (>89) Glucose 111 H (70-100) mg/dL Calcium 7.8 L (8.5-10.3) mg/dL Total Bilirubin 0.5 (0.2-1.0) mg/dL AST 17 (10-42) IU/L ALT 12 (10-60) IU/L Alkaline Phosphatase 34 L (42-121) IU/L Total Protein 5.8 L (6.7-8.2) g/dL Albumin 2.5 L (3.2-5.5) g/dL Globulin 3.3 (2.1-4.2) g/dL Albumin/Globulin Ratio 0.8 L (1.0-2.2) - Current Medications Current Medications: Current Medications Generic Name Dose Route Start Last Admin Trade Name Freq PRN Reason Stop Dose Admin Cyanocobalamin 500 mcg 07/25/19 09:00 07/27/19 09:11 Vitamin B-12 PO 500 mcg DAILY [facility] Administration Famotidine 10 mg 07/24/19 21:00 07/27/19 21:13 Pepcid IVP 10 mg BID [facility] Administration Hydromorphone HCl 0.5 mg 07/24/19 17:26 07/27/19 04:56 Dilaudid Inj Syringe IVP 0.5 mg Q2H PRN Administration Pain 8 to 10 Cefepime HCl 2 gm/ Sodium 100 mls @ 200 mls/hr 07/24/19 22:00 07/27/19 21:47 Chloride IV Infused BID [facility] Infusion Acetaminophen 100 mls @ 400 mls/hr 07/26/19 14:39 07/26/19 21:20 Ofirmev IV Infused Q6HR PRN Infusion PAIN Metronidazole 500 mg in 100 mls @ 100 mls/hr 07/27/19 00:00 07/28/19 00:57 Flagyl 500 Mg/100 Ml IV Infused Q8H [facility] Infusion Lactated Ringer's 1,000 mls @ 50 mls/hr 07/27/19 15:00 07/27/19 17:10 Lr IV 50 mls/hr .Q20H [facility] Administration Oxycodone HCl 5 mg 07/26/19 14:41 07/28/19 03:45 Roxicodone PO 5 mg Q4HR PRN Administration PAIN Sodium Chloride 10 ml 07/24/19 17:26 07/26/19 08:39 Normal Saline Flush 0.9% IVP 50 ml PRN PRN Administration NEEDED PER PROVIDER ORDERS Sodium Chloride 10 ml 07/25/19 01:00 07/27/19 23:57 Normal Saline Flush 0.9% IVP Not Given 0100,0900,1700 ALMA - Physical Exam Comments/Other: AAO, NAD EOMI, MMM, no scleral icterus unlabored RA soft, non-distended, inc c/d/i with no drainage, expected post op soreness MAEW skin dry and warm Impression/Plan - Problem List Problem List: Inflammatory mass of hepatic flexure - mass concerning for malignancy --> s/p open right colectomy --> pain relatively controlled, pt with expected soreness --> [place] CLD, will advance to fulls today; counseled on slow intake --> remains on abx, likely able to stop given she is on day 5 of treatment and we now have definitive source control; will discuss with medicine team --> ambulate, OOB, walk in room and halls with assistance ZANDRA: resolving INR elevated: decreasing --> unclear etiology other than malnutrition --> may benefit from nutrition consult SCDs, chemoprophylaxis
[2019-07-28] MEDS: metroNIDAZOLE 500 MG/100 ML 500 MG/100 ML BAG IV SCH ×2 (08:55→18:01)
[2019-07-28] MEDS: CYANOCOBALAMIN 500 MCG TABLET PO SCH (08:55)
[2019-07-28] MEDS: FAMOTIDINE 20 MG/2 ML VIAL IVP SCH ×2 (08:55→20:27)
[2019-07-28] MEDS: CEFEPIME 2 GM in SODIUM CHLORIDE 0.9% MINIBAG 100 ML IV SCH ×2 (11:34→20:26)
[2019-07-28] MEDS: LACTATED RINGERS 1,000 ML IV SCH (12:07)
[2019-07-28] MEDS: SODIUM CHLORIDE FLUSH 0.9% 10 ML SYRINGE IVP SCH ×2 (12:08→18:02)
--- NOTE | 2019-07-28 13:12 | PROVIDER PROGRESS NOTE ---
Subjective - Prog Note Date Prog Note Date: 07/28/19 Prog Note Time: 13:12 - Subjective Pt reports feeling: No change Subjective: she is walking in room and to bathroom. Nausea and dizziness are occurring. Orthostatics do not show orthostatic hypotension. She is on B12 and nutriton asks for IM dose x 1. I am new Hospitalist on service. Current Medications - Current Medications Current Medications: Active Medications Cyanocobalamin (Vitamin B-12) 500 mcg PO DAILY [facility] Last Admin: 07/28/19 08:55 Dose: 500 mcg Famotidine (Pepcid) 10 mg IVP BID [facility] Last Admin: 07/28/19 08:55 Dose: 10 mg Hydromorphone HCl (Dilaudid Inj Syringe) 0.5 mg IVP Q2H PRN PRN Reason: Pain 8 to 10 Last Admin: 07/27/19 04:56 Dose: 0.5 mg Cefepime HCl 2 gm/ Sodium (Chloride) 100 mls @ 200 mls/hr IV BID [facility] Last Infusion: 07/28/19 12:04 Dose: Infused Acetaminophen (Ofirmev) 100 mls @ 400 mls/hr IV Q6HR PRN PRN Reason: PAIN Last Infusion: 07/26/19 21:20 Dose: Infused Metronidazole (Flagyl 500 Mg/100 Ml) 500 mg in 100 mls @ 100 mls/hr IV Q8H [facility] Last Infusion: 07/28/19 11:34 Dose: Infused Lactated Ringer's (Lr) 1,000 mls @ 50 mls/hr IV .Q20H [facility] Last Admin: 07/28/19 12:07 Dose: 50 mls/hr Ondansetron HCl (Zofran Inj) 4 mg IVP Q6HR PRN PRN Reason: Nausea / Vomiting Last Admin: 07/28/19 08:59 Dose: 4 mg Oxycodone HCl (Roxicodone) 5 mg PO Q4HR PRN PRN Reason: PAIN Last Admin: 07/28/19 08:55 Dose: 5 mg Sodium Chloride (Normal Saline Flush 0.9%) 10 ml IVP PRN PRN PRN Reason: NEEDED PER PROVIDER ORDERS Last Admin: 07/26/19 08:39 Dose: 50 ml Sodium Chloride (Normal Saline Flush 0.9%) 10 ml IVP 0100,0900,1700 [facility] Last Admin: 07/28/19 12:08 Dose: 10 ml Citalopram Hydrobromide [Citalopram HBr] 20 mg PO DAILY 07/25/19 Simvastatin [Zocor] 40 mg PO QPM 07/25/19 Objective - Vital Signs/Intake & Output Reviewed Vital Signs: Yes Vital Signs: Vital Signs x48h Temp Pulse Pulse Pulse Pulse Resp BP 07/28/19 08:58 71 81 61 07/28/19 08:00 36.8 C 59 L 18 122/60 BP BP BP Pulse Ox 07/28/19 08:58 143/80 H 149/73 H 127/64 07/28/19 08:00 97 Intake & Output: Intake & Output 07/25/19 07/26/19 07/27/19 07/28/19 23:59 23:59 23:59 23:59 Intake Total 3738.333 2860.825 5006.003 1547.500 Output Total 575 1100 1325 1100 Balance 3163.333 8407.711 1398.003 447.500 - Objective General Appearance: positive: No acute distress, Alert, Other (fatigued appearing female, exhausted after getting up to bathroom. no severe pain) Eyes Bilateral: positive: PERRL, EOMI ENT: positive: Pharynx nml Neck: positive: No JVD. negative: Stiff neck Respiratory: positive: Chest non-tender. negative: Wheezes, Rales, Rhonchi Cardiovascular: positive: Regular rate & rhythm, Systolic murmur. negative: Gallop/S4, Friction rub Abdomen: positive: No organomegaly, No distention, Tenderness (over incision), Abnml bowel sounds (hypoactive) Skin: positive: Warm, Dry, Pallor Extremities: positive: Non-tender, No pedal edema Neurologic/Psychiatric: positive: Oriented x3, CN's nml (2-12), Motor nml, Weakness (generlized and slowing her down) - Lab Results Fish Bones: 07/28/19 05:33 07/28/19 05:33 Other Labs: Lab Results x24hrs 07/28/19 07/28/19 07/28/19 Range/Units 05:33 05:33 05:33 WBC 11.7 H (4.8-10.8) x10^3/uL RBC 3.31 L (4.20-5.40) 10^6/uL Hgb 8.2 L (12.0-16.0) g/dL Hct 26.6 L (37.0-47.0) % MCV 80.4 L (81.0-99.0) fL MCH 24.8 L (27.0-31.0) pg MCHC 30.8 L (32.0-36.0) g/dL RDW 17.1 H (12.0-15.0) % Plt Count 346 (130-450) 10^3/uL MPV 9.6 (7.9-10.8) fL Neut # (Auto) 8.3 H (1.5-6.6) 10^3/uL Lymph # (Auto) 2.0 (1.5-3.5) 10^3/uL [place] # (Auto) 1.0 (0.0-1.0) 10^3/uL Eos # (Auto) 0.2 (0.0-0.7) 10^3/uL Baso # (Auto) 0.1 (0.0-0.1) 10^3/uL Absolute Nucleated RBC 0.00 x10^3/uL Nucleated RBC % 0.0 /100WBC PT 14.3 H (9.9-12.6) secs INR 1.3 H (0.8-1.2) Sodium 139 (135-145) mmol/L Potassium 3.7 (3.5-5.0) mmol/L Chloride 115 H (101-111) mmol/L Carbon Dioxide 18 L (21-32) mmol/L Anion Gap 6.0 (6-13) BUN 16 (6-20) mg/dL Creatinine 1.0 (0.4-1.0) mg/dL Estimated GFR (MDRD) 55 L (>89) Glucose 111 H (70-100) mg/dL Calcium 7.8 L (8.5-10.3) mg/dL Total Bilirubin 0.5 (0.2-1.0) mg/dL AST 17 (10-42) IU/L ALT 12 (10-60) IU/L Alkaline Phosphatase 34 L (42-121) IU/L Total Protein 5.8 L (6.7-8.2) g/dL Albumin 2.5 L (3.2-5.5) g/dL Globulin 3.3 (2.1-4.2) g/dL Albumin/Globulin Ratio 0.8 L (1.0-2.2) ABX Reporting Has patient been on IV antibiotics over the past 48 hours?: Yes Assessment/Plan - Problem List (1) Colonic mass Impression: POD #2 after partial colectomy. 3 the colon mass was removed en bloc and the colon margins were able to be anastamosed. [place] out POD #1 Post-op orders for diet and pain meds and activity per General Surgeon, Dr Doyle or covering surgeon. She is now on diet, but minimal flatus. Ambulating in the room. We've encouraged her to walk in hallway. (2) Diverticulitis Assessment/Plan: The pathology report of the colon specimen is still pending. She was being treated for the CT finding being either a malignant tumor or a possible large diverticulum with diverticilitis. Continue present management. (3) Anaerobic bacteremia Assessment/Plan: Upon searching for the final identification of the bacterium, for which the patient was called back to the hospital from home, for this admission, it was noted that she never had gram NEGATIVE bacteria in her blood cultures, which she was told, and the ER note states. The blood cultures were all gram POSITIVE bacilli. In addition the growth is in anaerobic bottles and the Microbiology lab has stated that this is likely a Clostridium species. The diagnosis of GRAM NEGATIVE should be removed form the record, and corrected to say GRAM POSITIVE BACILLI sepsis, even at admission. The bacterial identification and sensitivities are still pending from 07/24. Awaiting those results. Her WBC has improved on the current antibiotics. Continue empiric Flagyl plus Cefepime. Day #4. (4) Elevated INR Assessment/Plan: At admission she had an elevated INR of 1.5, and preop it was still high 3/ at 1.6 and she needed vitamin K several doses plus FFP immediately before surgery. 3/2 INR is 1.4 and given more Vit K >1.3 today. No new meds for now. Unclear why her INR is elevated. She is not on any medication that would do this. She does have a history of alcoholism in the past but has not drank for several years. She is not known to have cirrhosis. Plan: Check hepatitis panel Check ultrasound (5) Anemia Assessment/Plan: She had anemia at admission and blood levels showed she was Iron depleted and B12 depleted. She was started on po Iron and B12 replacement. Pre-op she got 1U PRBCs 3/, and she will also need resumption of oral Iron plus vitamin B12. Follow CBC daily. Transfuse if Hgb <7. Vitamin B-12 1000 mg IM today for 1 dose (6) CKD (chronic kidney disease) Assessment/Plan: At admission her creatinine was 1.6 which remained flat for several days. In the last 2 days there is been improvement, following several days of IV hydration. The etiology of her CKD may be what was discovered with abdominal imaging at this admission: she has atrophy of the left kidney, and it is unknown if she has had that all her life. 1.6>1.4> 1.1> 1.0 today Continue gentle iv hydration, until she is taking diet appropriately (7) Atrophy of left kidney Assessment/Plan: As above. There is also a mass associated with the atrophic kidney. This may need further evaluation if she needs staging of her probable colon cancer. (8) Mass of left kidney Assessment/Plan: This would need further evaluation if she needs staging of her probable colon cancer. (9) Depression Assessment/Plan: Her home med continues here.
[2019-07-28] MEDS ORDERED: CYANOCOBALAMIN 1,000 MCG/ML VIAL IM ONE (14:00)
[2019-07-28] MEDS: HYDROmorphone 0.5 MG/0.5 ML SYRINGE IVP PRN (19:33)
[2019-07-28] MEDS: SODIUM CHLORIDE FLUSH 0.9% 10 ML SYRINGE IVP PRN (20:27)
--- NOTE | 2019-07-28 22:19 | Ultrasound Report ---
Reason: prolonged INR, hx of alcohol abuse Procedure Date: 07/28/2019 Accession Number: [id number] / [id number] Procedure: US - Abdomen Limited CPT Code: Final Report FULL RESULT: EXAM: ABDOMEN ULTRASOUND LIMITED, RUQ EXAM DATE: 07/28/2019 09:00 PM. CLINICAL HISTORY: Prolonged INR, hx of alcohol abuse. COMPARISON: ABDOMEN/PELVIS W/ 07/24/2019 4:16 PM. TECHNIQUE: Real-time scanning was performed with static images obtained. FINDINGS: Note Bene: Technically very difficult study. Body habitus. Increased bowel gas. Surgical madyson. Patient unable to lay supine. Liver: The liver parenchyma is coarse and visualization is suboptimal. 14.2 cm. Main portal vein flow: Hepatopetal. Gallbladder: Gallbladder sludge. Gallbladder wall thickness 3 mm. Nontender. Biliary System: Ductal system could not be assessed due to technical limitations described above. Other: Right kidney measures 10.5 cm. IMPRESSION: 1. Please see above. Technically difficult study. 2. Coarse parenchyma the liver. 3. Gallbladder sludge. RADIA
[2019-07-29] MEDS: LACTATED RINGERS 1,000 ML IV SCH ×2 (00:38→06:08)
[2019-07-29] MEDS: metroNIDAZOLE 500 MG/100 ML 500 MG/100 ML BAG IV SCH ×2 (00:38→09:00)
[2019-07-29] MEDS: oxyCODONE 5 MG TABLET PO PRN ×2 (00:41→06:04)
[2019-07-29] MEDS: SODIUM CHLORIDE FLUSH 0.9% 10 ML SYRINGE IVP SCH ×4 (00:50→23:30)
[2019-07-29 05:29] LABS: BASOPHILS % (AUTO) 0.6 %; EOSINOPHILS % (AUTO) 3.4 %; HGB - HEMOGLOBIN 7.8 g/dL (12.0-16.0); LYMPHOCYTES % (AUTO) 32.8 %; MEAN CORPUSCULAR HEMOGLOBIN 24.4 pg (27.0-31.0); MEAN CORPUSCULAR HGB CONC 30.6 g/dL (32.0-36.0); MEAN CORPUSCULAR VOLUME 79.7 fL (81.0-99.0); MEAN PLATELET VOLUME 9.5 fL (7.9-10.8); MONOCYTES % (AUTO) 8.2 %; NEUTROPHILS % (AUTO) 52.6 %; PLT - PLATELET COUNT 336 10^3/uL (130-450); RED CELL DISTRIBUTION WIDTH 17.2 % (12.0-15.0); WHITE BLOOD COUNT 10.4 x10^3/uL (4.8-10.8)
[2019-07-29 05:31] LABS: ALBUMIN 2.2 g/dL (3.2-5.5); ALBUMIN/GLOBULIN RATIO 0.6 (1.0-2.2); BILIRUBIN,TOTAL 0.3 mg/dL (0.2-1.0); TOTAL PROTEIN 5.7 g/dL (6.7-8.2)
[2019-07-29 05:34] LABS: ABNORMAL LYMPHS % (MANUAL) 0 %; BAND NEUTROPHILS % (MANUAL) 0 %
[2019-07-29 05:55] LABS: BASOPHILS # (MANUAL) 0.1 10^3/uL (0-0.1); BASOPHILS % (MANUAL) 1 %; DIFFERENTIAL COMMENT MANUAL DIFFERENTIAL; EOSINOPHILS # (MANUAL) 0.2 10^3/uL (0-0.7); LYMPHOCYTES # (MANUAL) 2.7 10^3/uL (1.5-3.5); LYMPHOCYTES % (MANUAL) 26 %; METAMYELOCYTES % (MANUAL) 1 %; MONOCYTES # (MANUAL) 0.8 10^3/uL (0.0-1.0); PLATELET ESTIMATE, MANUAL NORMAL (130-450,000) (NORMAL); RBC MORPHOLOGY (MULTIPLE) NORMAL APPEARANCE (NORMAL)
--- NOTE | 2019-07-29 09:12 | PROVIDER PROGRESS NOTE ---
Subjective - Prog Note Date Prog Note Date: 07/29/19 Prog Note Time: 11:44 - Subjective Pt reports feeling: Worse Subjective: Her feelings of being worse come from more the emotional component and the physical component. She is tired of being here. She feels like she is not getting enough sleep. She wants to be transferred to [facility] [place]. She is nauseated. On a full liquid diet. However no flatus that is significant. No BM. Current Medications - Current Medications Current Medications: Active Medications Generic Name Dose Route Start Last Admin Trade Name Freq PRN Reason Stop Dose Admin Cyanocobalamin 500 mcg 07/25/19 09:00 07/29/19 10:06 Vitamin B-12 PO 500 mcg DAILY ALMA Administration Famotidine 10 mg 07/24/19 21:00 07/29/19 10:06 Pepcid IVP 10 mg BID ALMA Administration Hydromorphone HCl 0.5 mg 07/24/19 17:26 07/28/19 19:33 Dilaudid Inj Syringe IVP 0.5 mg Q2H PRN Administration Pain 8 to 10 Cefepime HCl 2 gm/ Sodium 100 mls @ 200 mls/hr 07/24/19 22:00 07/29/19 10:33 Chloride IV Infused BID ALMA Infusion Acetaminophen 100 mls @ 400 mls/hr 07/26/19 14:39 07/26/19 21:20 Ofirmev IV Infused Q6HR PRN Infusion PAIN Metronidazole 500 mg in 100 mls @ 100 mls/hr 07/27/19 00:00 07/29/19 10:32 Flagyl 500 Mg/100 Ml IV Infused Q8H ALMA Infusion Lactated Ringer's 1,000 mls @ 50 mls/hr 07/27/19 15:00 07/29/19 06:08 Lr IV 50 mls/hr .Q20H ALMA Administration Ondansetron HCl 4 mg 07/24/19 17:26 07/28/19 08:59 Zofran Inj IVP 4 mg Q6HR PRN Administration Nausea / Vomiting Oxycodone HCl 5 mg 07/26/19 14:41 07/29/19 06:04 Roxicodone PO 5 mg Q4HR PRN Administration PAIN Sodium Chloride 10 ml 07/24/19 17:26 07/28/19 20:27 Normal Saline Flush 0.9% IVP 10 ml PRN PRN Administration NEEDED PER PROVIDER ORDERS Sodium Chloride 10 ml 07/25/19 01:00 07/29/19 09:31 Normal Saline Flush 0.9% IVP Not Given 0100,0900,1700 ALMA Citalopram Hydrobromide [Citalopram HBr] 20 mg PO DAILY 07/25/19 Simvastatin [Zocor] 40 mg PO QPM 07/25/19 Objective - Vital Signs/Intake & Output Reviewed Vital Signs: Yes Intake & Output: Intake & Output 07/26/19 07/27/19 07/28/19 07/29/19 23:59 23:59 23:59 23:59 Intake Total 2860.825 5006.003 5819.404 2549.833 Output Total 1100 1325 2125 900 Balance 1354.182 1878.003 -377.500 150.833 - Objective General Appearance: positive: No acute distress, Alert, Anxious Eyes Bilateral: positive: PERRL ENT: positive: Pharynx nml Neck: positive: No JVD Respiratory: positive: Chest non-tender. negative: Wheezes, Rales, Rhonchi Cardiovascular: positive: Regular rate & rhythm. negative: Gallop/S4, Friction rub Abdomen: positive: Other (Mild abdominal distention with hypoactive bowel sounds. Tender over incision. But no rebound or guarding.) Skin: positive: Warm, Dry, Pallor Extremities: positive: Non-tender, Full ROM Neurologic/Psychiatric: positive: Oriented x3, CN's nml (2-12), Motor nml (She is walking in the hallways and in her room without any assist other than standby assist) - Lab Results Fish Bones: 07/29/19 04:55 07/29/19 04:55 Other Labs: Lab Results x24hrs 07/29/19 07/29/19 07/28/19 Range/Units 04:55 04:55 16:58 WBC 10.4 (4.8-10.8) x10^3/uL RBC 3.20 L (4.20-5.40) 10^6/uL Hgb 7.8 L (12.0-16.0) g/dL Hct 25.5 L (37.0-47.0) % MCV 79.7 L (81.0-99.0) fL MCH 24.4 L (27.0-31.0) pg MCHC 30.6 L (32.0-36.0) g/dL RDW 17.2 H (12.0-15.0) % Plt Count 336 (130-450) 10^3/uL MPV 9.5 (7.9-10.8) fL Neut # (Auto) Not Reportable Lymph # (Auto) Not Reportable [place] # (Auto) Not Reportable Eos # (Auto) Not Reportable Baso # (Auto) Not Reportable Absolute Nucleated RBC Not Reportable Total Counted 100 Band Neuts % (Manual) 0 (0 - 10) % Abnorm Lymph % (Manual) 0 % Metamyelocytes % 1 H ( - 0) % Nucleated RBC % Not Reportable Neutrophils # (Manual) 6.4 (1.5-6.6) 10^3/uL Lymphocytes # (Manual) 2.7 (1.5-3.5) 10^3/uL Monocytes # (Manual) 0.8 (0.0-1.0) 10^3/uL Eosinophils # (Manual) 0.2 (0-0.7) 10^3/uL Basophils # (Manual) 0.1 (0-0.1) 10^3/uL Differential Comment MANUAL DIFFERENTIAL Platelet Estimate NORMAL (130-450,000) (NORMAL) RBC Morph Micro Appear NORMAL APPEARANCE (NORMAL) Sodium 139 (135-145) mmol/L Potassium 3.5 (3.5-5.0) mmol/L Chloride 114 H (101-111) mmol/L Carbon Dioxide 20 L (21-32) mmol/L Anion Gap 5.0 L (6-13) BUN 14 (6-20) mg/dL Creatinine 1.0 (0.4-1.0) mg/dL Estimated GFR (MDRD) 55 L (>89) Glucose 107 H (70-100) mg/dL POC Whole Bld Glucose 157 H (70 - 100) mg/dL Calcium 8.0 L (8.5-10.3) mg/dL Total Bilirubin 0.3 (0.2-1.0) mg/dL AST 17 (10-42) IU/L ALT 10 (10-60) IU/L Alkaline Phosphatase 34 L (42-121) IU/L Total Protein 5.7 L (6.7-8.2) g/dL Albumin 2.2 L (3.2-5.5) g/dL Globulin 3.5 (2.1-4.2) g/dL Albumin/Globulin Ratio 0.6 L (1.0-2.2) ABX Reporting Has patient been on IV antibiotics over the past 48 hours?: Yes Assessment/Plan - Problem List (1) Colonic mass Impression: POD #3 after partial colectomy. 3 the colon mass was removed en bloc and the colon margins were able to be anastamosed. Calvert out POD #1 Post-op orders for diet and pain meds and activity per General Surgeon, Dr Doyle or covering surgeon. She is now on diet, but minimal flatus. Ambulating in the room. We've encouraged her to walk in hallway. She is tired, not sleeping and wants OUT of her now. Nursing and I have been encouraging. She just needs to have flatus w diet advanced and she can go. She has asked to be transferred to [facility] so she could sleep more or have more family visit (they are closer there) but I have explained there is no higher level of care required. It would be administratively difficult to justify since there is no medical need. I also spoke to her daughter who reiterated why mom wants more visitors. Patient also fearful that what happened to her mother will happen to her. Her mother was hospitalized then went to SNF and there. She doesn't want the same thing. Emotional support provided. (2) Diverticulitis Assessment/Plan: The pathology report of the colon specimen is still pending. She was being treated for the CT finding being either a malignant tumor or a possible large diverticulum with diverticilitis. Continue present management. (3) Anaerobic bacteremia Assessment/Plan: Upon searching for the final identification of the bacterium, for which the wilfred ent was called back to the hospital from home, for this admission, it was noted that she never had gram NEGATIVE bacteria in her blood cultures, which she was told, and the ER note states. The blood cultures were all gram POSITIVE bacilli. In addition the growth is in anaerobic bottles and the Microbiology lab has stated that this is likely a Clostridium species. The diagnosis of GRAM NEGATIVE should be removed form the record, and corrected to say GRAM POSITIVE BACILLI sepsis, even at admission. The bacterial identification and sensitivities are still pending from 07/24. Awaiting those results. Her WBC has improved on the current antibiotics. Continue empiric Flagyl plus Cefepime. Day #5. Surgery feels those can be stopped after today since source of infection is out. (4) Elevated INR Assessment/Plan: At admission she had an elevated INR of 1.5, and preop it was still high 3/ at 1.6 and she needed vitamin K several doses plus FFP immediately before surgery. 3/2 INR is 1.4 and given more Vit K >1.3 today. No new meds for now. Unclear why her INR is elevated. She is not on any medication that would do this. She does have a history of alcoholism in the past but has not drank for several years. She is not known to have cirrhosis. Plan: Check hepatitis panel, drawn and pending Check ultrasound:It was a technically difficult study to do since patient could not be supine. Increased bowel gas. What was seen was a coarse liver parenchyma but visualization was suboptimal. It may have to be done at a later date. (5) Anemia Assessment/Plan: She had anemia at admission and blood levels showed she was Iron depleted and B12 depleted. She was started on po Iron and B12 replacement. Pre-op she got 1U PRBCs 3/, and she will also need resumption of oral Iron plus vitamin B12. Follow CBC daily. Transfuse if Hgb <7. Vitamin B-12 1000 mg IM 3/3 for 1 dose (6) CKD (chronic kidney disease) Assessment/Plan: At admission her creatinine was 1.6 which remained flat for several days. In the last 2 days there is been improvement, following several days of IV hydration. The etiology of her CKD may be what was discovered with abdominal imaging at this admission: she has atrophy of the left kidney, and it is unknown if she has had that all her life. 1.6>1.4> 1.1> 1.0 today Continue gentle iv hydration, until she is taking diet appropriately (7) Atrophy of left kidney Assessment/Plan: As above. There is also a mass associated with the atrophic kidney. This may need further evaluation if she needs staging of her probable colon cancer. (8) Mass of left kidney Assessment/Plan: This would need further evaluation if she needs staging of her probable colon cancer. (9) Depression Assessment/Plan: Her home med continues here.
[2019-07-29] MEDS: CEFEPIME 2 GM in SODIUM CHLORIDE 0.9% MINIBAG 100 ML IV SCH (10:06)
[2019-07-29] MEDS: CYANOCOBALAMIN 500 MCG TABLET PO SCH (10:06)
[2019-07-29] MEDS: FAMOTIDINE 20 MG/2 ML VIAL IVP SCH (10:06)
--- NOTE | 2019-07-29 13:06 | PROVIDER PROGRESS NOTE ---
Subjective - General Admit Date: 07/24/19 Procedure Date: 07/26/19 Post Op Days: 3 Procedure Performed: right colectomy - Review of Systems Gastrointestinal: negative: Nausea, Vomiting, Flatus - Other Other Information/Narrative: Depressed affect today, tired of being in the hospital. Has not gotten out of bed to walk other than to bathroom. Was switched overnight back to clear liquids for reasons unclear to me but switched back. Objective - Patient Data Vital Signs: Vital Signs x48h Temp Pulse Resp BP Pulse Ox 07/29/19 10:40 36.5 C 61 20 147/63 H 99 Weight: Weight 07/27/19 07/28/19 07/29/19 23:59 23:59 23:59 Weight (kg) 78.5 kg 78 kg 77.5 kg Intake & Output: Intake and Output Totals x24h 07/27/19 07/28/19 07/29/19 23:59 23:59 23:59 Intake Total 5006.003 6054.986 8165.833 Output Total 1325 2125 900 Balance 3681.003 -618.330 0720.833 - Lab Results Lab Results: 07/29/19 04:55 07/29/19 04:55 Other Lab Results: Lab Results x24hrs 07/29/19 07/29/19 07/28/19 Range/Units 04:55 04:55 16:58 WBC 10.4 (4.8-10.8) x10^3/uL RBC 3.20 L (4.20-5.40) 10^6/uL Hgb 7.8 L (12.0-16.0) g/dL Hct 25.5 L (37.0-47.0) % MCV 79.7 L (81.0-99.0) fL MCH 24.4 L (27.0-31.0) pg MCHC 30.6 L (32.0-36.0) g/dL RDW 17.2 H (12.0-15.0) % Plt Count 336 (130-450) 10^3/uL MPV 9.5 (7.9-10.8) fL Neut # (Auto) Not Reportable Lymph # (Auto) Not Reportable [place] # (Auto) Not Reportable Eos # (Auto) Not Reportable Baso # (Auto) Not Reportable Absolute Nucleated RBC Not Reportable Total Counted 100 Band Neuts % (Manual) 0 (0 - 10) % Abnorm Lymph % (Manual) 0 % Metamyelocytes % 1 H ( - 0) % Nucleated RBC % Not Reportable Neutrophils # (Manual) 6.4 (1.5-6.6) 10^3/uL Lymphocytes # (Manual) 2.7 (1.5-3.5) 10^3/uL Monocytes # (Manual) 0.8 (0.0-1.0) 10^3/uL Eosinophils # (Manual) 0.2 (0-0.7) 10^3/uL Basophils # (Manual) 0.1 (0-0.1) 10^3/uL Differential Comment MANUAL DIFFERENTIAL Platelet Estimate NORMAL (130-450,000) (NORMAL) RBC Morph Micro Appear NORMAL APPEARANCE (NORMAL) Sodium 139 (135-145) mmol/L Potassium 3.5 (3.5-5.0) mmol/L Chloride 114 H (101-111) mmol/L Carbon Dioxide 20 L (21-32) mmol/L Anion Gap 5.0 L (6-13) BUN 14 (6-20) mg/dL Creatinine 1.0 (0.4-1.0) mg/dL Estimated GFR (MDRD) 55 L (>89) Glucose 107 H (70-100) mg/dL POC Whole Bld Glucose 157 H (70 - 100) mg/dL Calcium 8.0 L (8.5-10.3) mg/dL Total Bilirubin 0.3 (0.2-1.0) mg/dL AST 17 (10-42) IU/L ALT 10 (10-60) IU/L Alkaline Phosphatase 34 L (42-121) IU/L Total Protein 5.7 L (6.7-8.2) g/dL Albumin 2.2 L (3.2-5.5) g/dL Globulin 3.5 (2.1-4.2) g/dL Albumin/Globulin Ratio 0.6 L (1.0-2.2) - Current Medications Current Medications: Current Medications Generic Name Dose Route Start Last Admin Trade Name Freq PRN Reason Stop Dose Admin Cyanocobalamin 500 mcg 07/25/19 09:00 07/29/19 10:06 Vitamin B-12 PO 500 mcg DAILY ALMA Administration Hydromorphone HCl 0.5 mg 07/24/19 17:26 07/28/19 19:33 Dilaudid Inj Syringe IVP 0.5 mg Q2H PRN Administration Pain 8 to 10 Lactated Ringer's 1,000 mls @ 50 mls/hr 07/27/19 15:00 07/29/19 06:08 Lr IV 50 mls/hr .Q20H ALMA Administration Ondansetron HCl 4 mg 07/24/19 17:26 07/28/19 08:59 Zofran Inj IVP 4 mg Q6HR PRN Administration Nausea / Vomiting Oxycodone HCl 5 mg 07/26/19 14:41 07/29/19 06:04 Roxicodone PO 5 mg Q4HR PRN Administration PAIN Sodium Chloride 10 ml 07/24/19 17:26 07/28/19 20:27 Normal Saline Flush 0.9% IVP 10 ml PRN PRN Administration NEEDED PER PROVIDER ORDERS Sodium Chloride 10 ml 07/25/19 01:00 07/29/19 09:31 Normal Saline Flush 0.9% IVP Not Given 0100,0900,1700 [facility] - Physical Exam Comments/Other: AAO, NAD, morose affect EOMI, MMM, no scleral icterus unlabored RA soft, non-distended, inc c/d/i with no drainage, expected post op soreness MAEW skin dry and warm Impression/Plan - Problem List Problem List: Inflammatory mass of hepatic flexure - mass concerning for malignancy --> s/p open right colectomy --> pain relatively controlled, pt with expected soreness --> alberta CLD, advance again to fulls; counseled on slow intake --> abx stopped --> ambulate, OOB, walk in room and halls with assistance; stressed importance of this ZANDRA: resolved INR elevated: decreasing --> unclear etiology other than malnutrition; US and CT unimpressive for cirrhosis --> may benefit from nutrition consult SCDs, chemoprophylaxis
[2019-07-30] MEDS: oxyCODONE 5 MG TABLET PO PRN ×2 (00:44→08:48)
[2019-07-30] MEDS: LACTATED RINGERS 1,000 ML IV SCH (02:17)
[2019-07-30 05:23] LABS: BASOPHILS % (AUTO) 0.5 %; EOSINOPHILS % (AUTO) 2.3 %; HGB - HEMOGLOBIN 7.9 g/dL (12.0-16.0); LYMPHOCYTES % (AUTO) 31.4 %; MEAN CORPUSCULAR HEMOGLOBIN 25.2 pg (27.0-31.0); MEAN CORPUSCULAR HGB CONC 31.3 g/dL (32.0-36.0); MEAN CORPUSCULAR VOLUME 80.3 fL (81.0-99.0); MEAN PLATELET VOLUME 9.6 fL (7.9-10.8); MONOCYTES % (AUTO) 7.2 %; NEUTROPHILS % (AUTO) 53.1 %; PLT - PLATELET COUNT 348 10^3/uL (130-450); RED BLOOD COUNT 3.14 10^6/uL (4.20-5.40); RED CELL DISTRIBUTION WIDTH 17.2 % (12.0-15.0); WHITE BLOOD COUNT 12.9 x10^3/uL (4.8-10.8)
[2019-07-30 05:34] LABS: ALBUMIN 2.3 g/dL (3.2-5.5); ALBUMIN/GLOBULIN RATIO 0.7 (1.0-2.2); ALKALINE PHOSPHATASE 34 IU/L (42-121); ALT ALANINE AMINOTRANSFERASE 11 IU/L (10-60); AST ASPARTATE AMINOTRANSFERASE 15 IU/L (10-42); BILIRUBIN,TOTAL < 0.2 mg/dL (0.2-1.0); BUN - BLOOD UREA NITROGEN 11 mg/dL (6-20); CALCIUM 8.1 mg/dL (8.5-10.3); CARBON DIOXIDE - CO2 21 mmol/L (21-32); CHLORIDE 110 mmol/L (101-111); CREATININE 0.9 mg/dL (0.4-1.0); GFR - MDRD 62 (>89); GLUCOSE 111 mg/dL (70-100); SODIUM 138 mmol/L (135-145); TOTAL PROTEIN 5.5 g/dL (6.7-8.2)
[2019-07-30 05:35] LABS: ABNORMAL LYMPHS % (MANUAL) 0 %
[2019-07-30 05:49] LABS: BAND NEUTROPHILS % (MANUAL) 3 %; EOSINOPHILS # (MANUAL) 0.3 10^3/uL (0-0.7); LYMPHOCYTES # (MANUAL) 2.8 10^3/uL (1.5-3.5); LYMPHOCYTES % (MANUAL) 22 %; METAMYELOCYTES % (MANUAL) 4 %; MONOCYTES # (MANUAL) 0.6 10^3/uL (0.0-1.0); MYELOCYTES % (MANUAL) 4 %; RBC MORPHOLOGY (MULTIPLE) NORMAL APPEARANCE (NORMAL)
[2019-07-30 05:50] LABS: DIFFERENTIAL COMMENT MANUAL DIFFERENTIAL; PLATELET ESTIMATE, MANUAL NORMAL (130-450,000) (NORMAL)
[2019-07-30 08:28] VITALS: BP 124/62
--- NOTE | 2019-07-30 08:53 | Discharge Plan ---
Discharge Plan Problem Reviewed?: Yes Disposition: Home, Self Care Condition: Good Prescriptions: oxyCODONE [Roxicodone] 5 mg PO Q4HR PRN #30 tablet PRN Reason: Pain Diet: Regular Activity Restrictions: Activity as Tolerated Shower Restrictions: No Driving Restrictions: No Instruction Topics: Phytonadione Vitamin K1 injection Health Concerns: You came to the hospital on July 23 because you were having confusion, fever. In the emergency room we found you to definitely have a fever, and an elevated white cell count indicating that you may have infection. But your urinalysis and chest x-ray was normal so you were sent home. You were called back to come see us again because your blood cultures were positive for infection with bacteria. The repeat white cell count was even higher. You were now having right upper quadrant abdominal pain and a CAT scan showed a mass and inflammation in the right bowel. You were placed on antibiotics, and taken to the operating room to have your right bowel removed. You did not need a colostomy bag. Plan of Treatment: 1. Please see the surgeon, Dr. Doyle, in 1 week for follow-up of your abdominal incision. Dr. Doyle will also need to tell you the pathology report results on the mass that was removed from your colon. If you have any problems with fever, chills, drainage from the wound where it is red/hot please call Dr. Doyle's office at [phone]. 2. No heavy lifting. Do not lift anything greater than 8 to 10 pounds for the next 6 weeks. 3. You may take a shower, but do not bathe with your abdominal wound as it heals. Keep your wound clean and dry. 4. We have sent you home with some pain medications. If you run out and need refills of your pain medication, please call Dr. Doyle's office. 5. During your stay you were also identified as having anemia with B12 and iron deficiency. Please have your doctor give you a B12 injection once a month. And take an iron tablet once a day. 6. We also found you to have chronic kidney disease and a mass on your left kidney. Your regular doctor will need to follow-up with you about identifying if the masses a simple congenital anatomic finding or something more nefarious. Care Goals: At this time your goal should be to increase your strength. Take a 10-minute walk at least 3 times a day. Eat a regular meal, and you may need to take a nutrition supplement such as Ensure or boost once a day. Practice deep breathing to prevent pneumonia. If you are going to spend a lot of time sitting, make sure that you elevate your legs, and point your toes down and up to exercise your calf muscles to prevent blood clots in your legs. Assessment: Patient understands care goals and will follow through. No Smoking: If you smoke, Please STOP! Call for help.
--- NOTE | 2019-07-30 10:19 | PROVIDER PROGRESS NOTE ---
Subjective - General Admit Date: 07/24/19 Procedure Date: 07/26/19 Post Op Days: 4 Procedure Performed: right colectomy - Review of Systems Gastrointestinal: negative: Nausea, Vomiting, Flatus - Other Other Information/Narrative: Looks much better today, slept well, alberta solids, walked well yesterday in halls. Had BM today. Objective - Patient Data Reviewed Vital Signs: Yes Vital Signs: Vital Signs x48h Temp Pulse Resp BP Pulse Ox 07/30/19 08:25 36.3 C L 71 18 124/62 98 Weight: Weight 07/28/19 07/29/19 07/30/19 23:59 23:59 23:59 Weight (kg) 78 kg 77.5 kg 78 kg Intake & Output: Intake and Output Totals x24h 07/28/19 07/29/19 07/30/19 23:59 23:59 23:59 Intake Total 0651.536 2239.833 1000 Output Total 2125 2150 1000 Balance -377.500 570.833 0 - Lab Results Lab Results: 07/30/19 04:40 07/30/19 04:40 Other Lab Results: Lab Results x24hrs 07/30/19 07/30/19 Range/Units 04:40 04:40 WBC 12.9 H (4.8-10.8) x10^3/uL RBC 3.14 L (4.20-5.40) 10^6/uL Hgb 7.9 L (12.0-16.0) g/dL Hct 25.2 L (37.0-47.0) % MCV 80.3 L (81.0-99.0) fL MCH 25.2 L (27.0-31.0) pg MCHC 31.3 L (32.0-36.0) g/dL RDW 17.2 H (12.0-15.0) % Plt Count 348 (130-450) 10^3/uL MPV 9.6 (7.9-10.8) fL Neut # (Auto) Not Reportable Lymph # (Auto) Not Reportable [place] # (Auto) Not Reportable Eos # (Auto) Not Reportable Baso # (Auto) Not Reportable Absolute Nucleated RBC Not Reportable Total Counted 100 Band Neuts % (Manual) 3 (0 - 10) % Abnorm Lymph % (Manual) 0 % Metamyelocytes % 4 H ( - 0) % Myelocytes % 4 H ( - 0) % Nucleated RBC % Not Reportable Neutrophils # (Manual) 8.1 H (1.5-6.6) 10^3/uL Lymphocytes # (Manual) 2.8 (1.5-3.5) 10^3/uL Monocytes # (Manual) 0.6 (0.0-1.0) 10^3/uL Eosinophils # (Manual) 0.3 (0-0.7) 10^3/uL Basophils # (Manual) 0.0 (0-0.1) 10^3/uL Differential Comment MANUAL DIFFERENTIAL Platelet Estimate NORMAL (130-450,000) (NORMAL) RBC Morph Micro Appear NORMAL APPEARANCE (NORMAL) Sodium 138 (135-145) mmol/L Potassium 3.6 (3.5-5.0) mmol/L Chloride 110 (101-111) mmol/L Carbon Dioxide 21 (21-32) mmol/L Anion Gap 7.0 (6-13) BUN 11 (6-20) mg/dL Creatinine 0.9 (0.4-1.0) mg/dL Estimated GFR (MDRD) 62 L (>89) Glucose 111 H (70-100) mg/dL Calcium 8.1 L (8.5-10.3) mg/dL Total Bilirubin < 0.2 L (0.2-1.0) mg/dL AST 15 (10-42) IU/L ALT 11 (10-60) IU/L Alkaline Phosphatase 34 L (42-121) IU/L Total Protein 5.5 L (6.7-8.2) g/dL Albumin 2.3 L (3.2-5.5) g/dL Globulin 3.2 (2.1-4.2) g/dL Albumin/Globulin Ratio 0.7 L (1.0-2.2) - Current Medications Current Medications: Current Medications Generic Name Dose Route Start Last Admin Trade Name Freq PRN Reason Stop Dose Admin Cyanocobalamin 500 mcg 07/25/19 09:00 07/29/19 10:06 Vitamin B-12 PO 500 mcg DAILY ALMA Administration Hydromorphone HCl 0.5 mg 07/24/19 17:26 07/28/19 19:33 Dilaudid Inj Syringe IVP 0.5 mg Q2H PRN Administration Pain 8 to 10 Ondansetron HCl 4 mg 07/24/19 17:26 07/28/19 08:59 Zofran Inj IVP 4 mg Q6HR PRN Administration Nausea / Vomiting Oxycodone HCl 5 mg 07/26/19 14:41 07/30/19 08:48 Roxicodone PO 5 mg Q4HR PRN Administration PAIN Sodium Chloride 10 ml 07/24/19 17:26 07/28/19 20:27 Normal Saline Flush 0.9% IVP 10 ml PRN PRN Administration NEEDED PER PROVIDER ORDERS Sodium Chloride 10 ml 07/25/19 01:00 07/29/19 23:30 Normal Saline Flush 0.9% IVP Not Given 0100,0900,1700 ALMA - Physical Exam Comments/Other: AAO, NAD, normal affect EOMI, MMM, no scleral icterus unlabored RA soft, non-distended, inc c/d/i with no drainage, expected post op soreness MAEW skin dry and warm Impression/Plan - Problem List Problem List: s/p R colectomy for inflammatory hepatic flexure mass --> doing well, alberta low fiber diet, pain controlled, bowels moving, walking well --> home today, will remove madyson and place steri strips, reviewed precautions and post op care --> FU with me next week to review path for suspected malignancy
[2019-07-30] MEDS: CYANOCOBALAMIN 500 MCG TABLET PO SCH (10:39)
[2019-07-30] MEDS: SODIUM CHLORIDE FLUSH 0.9% 10 ML SYRINGE IVP SCH (10:39)
[2019-07-30 12:15] LABS: HEPATITIS A IGM NON-REACTIVE (NON-REACTIVE); HEPATITIS B SURFACE ANTIGEN NON-REACTIVE (NON-REACTIVE); HEPATITIS C ANTIBODY NON-REACTIVE (NON-REACTIVE)
--- NOTE | 2019-07-30 15:37 | DISCHARGE SUMMARY ---
Physician: Janis Rojas MD DATE OF ADMISSION: 07/24/2019 DATE OF DISCHARGE: 07/30/2019 DISCHARGE PHYSICIAN: Meli Doyle MD DISCHARGE DIAGNOSES 1. Peritonitis. 2. Clostridium bacteremia. 3. Invasive adenocarcinoma. 4. Freyv-ic-nxluvkc kidney disease, stage 2. 5. Iron deficiency anemia. 6. B12 anemia. 7. Hyponatremia. 8. Depression with anxiety. DISCHARGE MEDICATIONS 1. Citalopram 20 mg daily. 2. Zocor 40 mg daily. 3. Roxicodone 5 mg every 4 hours as needed, #30. PRINCIPAL PROCEDURES 1. Abdomen and pelvis CT with abnormal hepatic flexure of the colon concerning for either necrotic neoplasm or giant diverticulum with diverticulitis. Liver looks normal, without masses. 2. Retroperitoneal ultrasound for left kidney atrophy or mass seen on CT shows atrophic left kidney with dilated extrarenal pelvis. Normal sonographic appearance of right kidney. The left kidney is suboptimally visualized due to overlying bowel gas. No visualized stones. The atrophy appears with a lobular contour and dilated extrarenal pelvis. 3. Abdominal ultrasound. Technically difficult study to do because of body habitus, increased bowel gas, surgical madyson, and the patient is unable to lie supine. The liver parenchyma appears coarse and portal vein flow is hepatopetal. 4. Liver testing is pending at the time of this dictation. HARMEET, ceruloplasmin, liver, kidney microsome, smooth muscle are all pending. Hepatitis A, B, and C panels were all negative for acute hepatitis. 5. Vitamin B12 is low at 177. Normal is 180-914. Iron is low at 8 with normal 28-170. 6. Preliminary blood cultures from 07/24/2019 showed positive bacilli, felt to be probable Clostridium. Those have been sent for identification and susceptibility. 7. Blood cultures from 07/24/2019 repeat after IV antibiotics were negative. Blood cultures 07/25/2019 negative. HOSPITAL COURSE: The patient is a 69-year-old white female with depression and anxiety. She has lost enough weight that she no longer takes medications for blood pressure or diabetes. The only medicine she takes right now is for elevated cholesterol and her depression with anxiety. She really hates coming to the hospital or to see doctors, according to her daughter. She presented to the emergency room on 07/23/2019 with confusion, fever to 101, and a white cell count of 20,000. Urinalysis was negative and chest x-ray was negative, and as such she was sent home. Two out of two blood cultures became positive for gram- positive bacilli. For some reason, the patient and the ER were initially told that it was gram-negative rods, but final pathology or evaluation of the slides showed it to be gram-positive bacilli. When she came back to the emergency room a second time, white cell count was 30,000. She had now developed right abdominal pain, and CT showed transverse colon mass versus diverticulitis. She had a tender abdomen and met criteria of sepsis. At this time the lab feels that the bacilli are clostridia. It is a send out lab and final identification and sensitivity is pending at the time of discharge.General surgery feels the patient does not need any further antibiotic therapy since the source of infection has been physically removed. General surgery was consulted, and the patient was started on empiric antibiotic therapy. She underwent en bloc colon resection with clean margins and was able to have a primary anastomosis. Postoperatively, there were no severe complications. The patient's mental health suffered, in that she really did not want to be here. At one point, demanded to be transferred to [facility]. She was lonely, scared and wanted family to visit her. They would visit her at [facility], but would not visit her here. It was too far for them. Bowels were slow to move. She was started on a clear liquid diet and advanced. When she finally had enough flatus, was given a regular meal, had no nausea or emesis and was able to go home. Other than the anxiety and depression, there were no other postoperative complications. Her abdominal pain resolved. She was ambulating in the room without any difficulty. She did have mild cvodu-[id number]-[id number] kidney injury. Admission creatinine was 1.6 and was 0.9 by the time of discharge. Her GFR was initially 32 and was 62 by the time of discharge. She has a history of diabetes in the past but is diet controlled. The highest her glucose got during this stay was 157. Hypokalemia was treated and hyponatremia of 134 resolved within 24 hours. Because of the prolonged INR prior to surgery, we did do a preliminary liver evaluation. Unfortunately she was unable to do the ultrasound because of body habitus and could not keep still. Many of her blood tests are pending at the time of discharge and will need to be reviewed by her primary care provider.She will also need to be started on vitamin B12 once a month. The patient was discharged in stable condition. PHYSICAL EXAMINATION GENERAL: She was a 5 feet 3 inches, 78 kg white female, who looks older than stated age. Slightly depressed mood and affect. VITAL SIGNS: Temperature is 36.3, pulse 71 and regular, blood pressure 124/62, respirations 18, 98% on room air. NECK: Anterior cervical shotty adenopathy, but was supple and had no bruits. LUNGS: Diminished breath sounds at the bases, but were clear to auscultation and percussion, and there is no increased respiratory effort, when she got up to walk to the bathroom or in her room. ABDOMEN: Appetite was minimal. Findings were that of tenderness over the incision, but otherwise normal bowel sounds. No rebound or guarding. She was having flatus and had one small bowel movement on the day of discharge. EXTREMITIES: Warm without clubbing, cyanosis, or edema. Greater than 30 minutes were spent coordinating discharge. At the time of this dictation, final pathology finally came back. The patient is not aware of the pathologic diagnosis yet. She is due to follow up with Dr. Doyle in the next week to have wound care followup, as well as to discuss the pathology. Dr. Doyle gave me specific instructions to discharge the patient with and those were given to the patient. Pathology shows to have colonic adenocarcinoma with variable mucosa with features. Grade 2/4 moderately differentiated histology. She has 3 lesions within 1 bowel segment. Two smaller lesions are confined to the submucosa. The largest lesion shows full thickness penetration with perforation. Out of 24 lymph nodes, all were negative for malignancy. There was acute visceral peritonitis. Appendix was normal, and the omentum and chronic active inflammation and fibrosis. cc: Meli Doyle MD TD: 07/30/2019 15:[facility]
[2019-07-31 23:05] LABS: SMOOTH MUSCLE IGG AB <20 U
[2019-08-01 00:30] LABS: LIVER KIDNEY MICROSOME AB <20.0 U
== END 2019-07-30 11:52 | disposition home or self-care (01) | DRG 853 ==
LOC: ED 13:45 → MS2 17:24
PROVIDERS: ADMIT Internal Medicine; ATTEND Specialist
PROC: 30233N1 Transfusion of Nonautologous Red Blood Cells into Peripheral Vein, Percutaneous Approach (ICD-10-PCS; 2019-07-26)
PROC: 0DBF0ZZ Excision of Right Large Intestine, Open Approach (ICD-10-PCS; 2019-07-26)
PROC: 30233K1 Transfusion of Nonautologous Frozen Plasma into Peripheral Vein, Percutaneous Approach (ICD-10-PCS; principal; 2019-07-26 11:00)
DX: A41.50 Gram-negative sepsis, unspecified (principal); R19.00 Intra-abdominal and pelvic swelling, mass and lump, unspecified site; E78.00 Pure hypercholesterolemia, unspecified; Z96.659 Presence of unspecified artificial knee joint; A41.89 Other specified sepsis; K65.9 Peritonitis, unspecified; K63.1 Perforation of intestine (nontraumatic); C18.3 Malignant neoplasm of hepatic flexure; N17.9 Acute kidney failure, unspecified; E87.1 Hypo-osmolality and hyponatremia; R65.20 Severe sepsis without septic shock; D50.9 Iron deficiency anemia, unspecified; D51.9 Vitamin B12 deficiency anemia, unspecified; E11.22 Type 2 diabetes mellitus with diabetic chronic kidney disease; N18.3 Chronic kidney disease, stage 3 (moderate); K57.30 Diverticulosis of large intestine without perforation or abscess without bleeding; F32.9 Major depressive disorder, single episode, unspecified; F10.11 Alcohol abuse, in remission; E78.5 Hyperlipidemia, unspecified; N26.1 Atrophy of kidney (terminal); R93.422 Abnormal radiologic findings on diagnostic imaging of left kidney; R79.1 Abnormal coagulation profile; Z86.79 Personal history of other diseases of the circulatory system; Z87.440 Personal history of urinary (tract) infections; Z87.891 Personal history of nicotine dependence; R50.9 Fever, unspecified
CPT/HCPCS: 36415; 74177; 76705; 76770; 80053; 80074; 81001; 82272; 82378; 82390; 82607; 82746; 83516; 83540; 83605; 83690; 83735; 84100; 84466; 85025; 85610; 86038; 86376; 86850; 86900; 86901; 86920; 87040; 93005; 93306; 96365; 96366; 96367; A9270; J0131; J0330; J1170; J7040; J7120; P9016; P9017; Q9967; 71046; 81003; 81599; 87086; 87275; 87276; 99284